=== PATIENT | female | born 1930 | race Caucasian/White ===

== ENCOUNTER → 2018-04-15 | Outpatient (CLI) | payer MEDICARE, OTHER ==
[2018-04-15 10:28] LABS: CREATININE 1.7 mg/dL (0.6-1.0); GFR 28.5; POTASSIUM 3.5 mmol/L (3.5-5.1)
== END | disposition home or self-care (01) ==
LOC: LAB 09:14
PROVIDERS: ATTEND Internal Medicine Cardiovascular Disease
DX: I48.2 Chronic atrial fibrillation (principal); I10 Essential (primary) hypertension
CPT/HCPCS: 36415; 80048; 80061

== ENCOUNTER 2019-01-18 10:29 | Inpatient (IN) | payer MEDICARE, OTHER ==
[~2019-01-18] VITALS: Ht 165.1 cm; Wt 93.6 kg
--- NOTE | 2019-01-18 10:53 | PHYS DOC ---
Past History Past Medical History: A-Fib, Hypertension Past Surgical History: Appendectomy, Cholecystectomy, Hysterectomy, Knee Replacement, Tonsillectomy Smoking: Non-smoker Alcohol Use: Rarely Drug Use: None Adult General Chief Complaint Chief Complaint: DIZZY/LIGHT HEADED HPI HPI Patient is a 88 year old female brought in by EMS because of dizziness. Patient states she was in the bathroom try to urinate and had 1 episodes of dizziness for a few seconds without chest pain, shortness of breath, palpitation. Patient states she was not able to get out of the stool. Patient's son called her as routine daily called to check on her and she did not answer and found her on the stool and called 911 and they moved the patient with the help from firefighters. Patient denies any problem in ER. Patient's son reported that she had a few episodes of dizziness for the last 1 week and her primary care physician adjusted her medication. Patient has history of atrial flutter patient and currently taking Coumadin and the states she drinks plenty of water because she takes Triamterene/ Hydrochlorothiazide. Review of Systems Review of Systems Constitutional: Denies fever or chills [] Eyes: Denies change in visual acuity, redness, or eye pain [] HENT: Denies nasal congestion or sore throat [] Respiratory: Denies cough or shortness of breath [] Cardiovascular: No additional information not addressed in HPI [] GI: Denies abdominal pain, nausea, vomiting, bloody stools or diarrhea [] : Denies dysuria or hematuria [] Musculoskeletal: Denies back pain or joint pain [] Integument: Denies rash or skin lesions [] Neurologic: Denies headache, focal weakness or sensory changes reports dizziness [] Endocrine: Denies polyuria or polydipsia [] All other systems were reviewed and found to be within normal limits, except as documented in this note. Allergies Allergies Allergies Coded Allergies Type Severity Reaction Last Updated Verified No Known Drug Allergies 01/18/19 No Physical Exam Physical Exam Constitutional: Well developed, well nourished, mild distress, non-toxic appearance. [] HENT: Normocephalic, atraumatic, bilateral external ears normal, oropharynx moist, no oral exudates, nose normal. [] Eyes: PERRLA, EOMI, conjunctiva normal, no discharge. [] Neck: Normal range of motion, no tenderness, supple, no stridor. [] Cardiovascular: Irregularly irregular rhythm, no murmur [] Lungs & Thorax: Bilateral breath sounds clear to auscultation [] Abdomen: Bowel sounds normal, soft, no tenderness, no masses, no pulsatile masses. [] Skin: Warm, dry, no erythema, no rash. [] Back: No tenderness, no CVA tenderness. [] Extremities: No tenderness, no cyanosis, no clubbing, ROM intact, no edema. [] Neurologic: Alert and oriented X 3, normal motor function, normal sensory function, no focal deficits noted. [] Psychologic: Affect normal, judgement normal, mood normal. [] Current Patient Data Vital Signs Vital Signs Date Time Temp Pulse Resp B/P (MAP) Pulse Ox O2 Delivery O2 Flow Rate FiO2 01/18/19 10:29 97.6 EKG EKG EKG interpreted by me. EKG at 1043 showed atrial flutter patient at rate of 90, PVCs, low voltage QRS, no acute ST and T-wave abnormalities. Radiology/Procedures Radiology/[place] [address] IMAGING REPORT Signed PATIENT: MARK ABDULLAHI ACCOUNT: [id number] : 1930 LOCATION: ER AGE: 88 SEX: F EXAM STATUS: REG ER ORD. PHYSICIAN: SARAN DOTSON MD REASON: dizziness PROCEDURE: PORTABLE CHEST 1V AP chest. HISTORY: Dizziness, weakness AP view was taken of the chest. Patient's taken a poor inspiration. Heart is within normal limits in size. There is atherosclerotic change in the aortic arch. There are no confluent infiltrates. IMPRESSION: 1. Poor inspiration. 2. No acute infiltrates. Electronically signed by: Shamar Rubio MD (01/18/2019 11:37 AM) [facility] DICTATED AND SIGNED BY: SHAMAR RUBIO MD DATE: 01/18/19 1137 CC: MARTINEZ MONTOAY MD; SARAN DOTSON MD ~ [address] [address] IMAGING REPORT Signed PATIENT: MARK ABDULLAHI ACCOUNT: [id number] : 1930 LOCATION: ER AGE: 88 SEX: F EXAM STATUS: REG ER ORD. PHYSICIAN: SARAN DOTSON MD REASON: dizziness PROCEDURE: CT HEAD WO CONTRAST CT brain without contrast. HISTORY: Dizziness CT scan of brain was done without contrast. There is diffuse atrophy. There is no intracranial hemorrhage or subdural hematoma. An acute CVA is not identified. There is decreased density in the periventricular white matter likely chronic microvascular changes. There is no mass or shift of the midline. Sinuses are clear. IMPRESSION: 1. Atrophy and chronic microvascular changes. 2. No intracranial hemorrhage or acute finding. [facility] Compliance Statement: One or more of the following individualized dose reduction techniques were utilized for this examination: 1. Automated exposure control 2. Adjustment of the mA and/or kV according to patient size 3. Use of iterative reconstruction technique Electronically signed by: Shamar Rubio MD (01/18/2019 11:39 AM) [facility] DICTATED AND SIGNED BY: SHAMAR RUBIO MD DATE: 01/18/19 1139 CC: MARTINEZ MONTOYA MD; SARAN DOTSON MD ~ Course & Med Decision Making Course & Med Decision Making Pertinent Labs and Imaging studies reviewed. (See chart for details) Evaluation of patient in ER showed 88-year-old female patient brought in by EMS because of dizziness and generalized weakness. Patient had NIH scale of 0 with a stable vital signs and temperature of 99.2 to arrival to ER. Patient had multiple electrolyte problems with chronic renal failure and CHF and elevation of CK without history of recent falls. Patient had elevation of lactic acid and more than 40 WBC in urine. Patient had 500 mL of normal saline and Rocephin and felt better. Dr. Montoya accepted admission at 1207. Patient and her family informed about the test results and plan of care. Dragon Disclaimer Dragon Disclaimer This electronic medical record was generated, in whole or in part, using a voice recognition dictation system. Departure Departure: Impression: Primary Impression: Sepsis Additional Impressions: Rhabdomyolysis Acute exacerbation of CHF (congestive heart failure) Chronic renal insufficiency Hypomagnesemia Hyponatremia Dizziness Elevated liver enzymes Hypochloremia Atrial fibrillation Urinary tract infection Disposition: ADMITTED INPATIENT (at 1208) Admitting Physician: Martinez Montoya (accepted admission at 1207) Condition: IMPROVED Referrals: MARTINEZ MONTOYA MD (PCP) NIHSS - ED NIH Stroke Scale: NIH Stroke Scale Response (Comments) Value Level of Consciousness: 0 Alert/Responsive 0 LOC Commands: 0 Performs both tasks 0 Best Gaze: 0 Normal 0 Facial Palsy: 0 Normal, symmetrical 0 Motor - Left Arm 0 No drift 0 Motor - Right Arm 0 No drift 0 Motor - Left Leg 0 No drift 0 Motor: Right Leg 0 No drift 0 Limb Ataxia: 0 Absent 0 Sensory: 0 No loss 0 Best Language: 0 Normal 0 Dysathria: 0 Normal 0 Extinction and Inattention: 0 Normal 0 Total 0 Critical Care Time Critical care time was 65 minutes exclusive of procedures. Problem Qualifiers Primary Impression: Sepsis Sepsis type: sepsis due to unspecified organism Qualified Codes: A41.9 - Sepsis, unspecified organism Additional Impressions: Rhabdomyolysis Rhabdomyolysis type: non-traumatic Qualified Codes: M62.82 - Rhabdomyolysis Acute exacerbation of CHF (congestive heart failure) Heart failure type: unspecified Qualified Codes: I50.9 - Heart failure, unspecified Chronic renal insufficiency Chronic kidney disease stage: unspecified stage Qualified Codes: N18.9 - Chronic kidney disease, unspecified Atrial fibrillation Atrial fibrillation type: chronic Qualified Codes: I48.2 - Chronic atrial fibrillation Urinary tract infection Urinary tract infection type: site unspecified Hematuria presence: without hematuria Qualified Codes: N39.0 - Urinary tract infection, site not specified SARAN DOTSON MD Jan 18, 2019 10:52
[2019-01-18 11:11] LABS: BASO % 0 % (0-3); EOS % 0 % (0-3); HEMATOCRIT 46.3 % (36.0-47.0); HEMOGLOBIN 15.5 g/dL (12.0-15.5); LYMPH # 0.6 x10^3/uL (1.0-4.8); LYMPH % 5 % (24-48); MEAN CORPUSCULAR HEMOGLOBIN 28 pg (25-35); MEAN CORPUSCULAR HGB CONC 34 g/dL (31-37); MEAN CORPUSCULAR VOLUME 84 fL (79-100); MONO # 0.3 x10^3/uL (0.0-1.1); MONO % 3 % (0-9); NEUT # 10.9 x10^3uL (1.8-7.7); NEUT % 92 % (31-73); PLATELET COUNT 251 x10^3/uL (140-400); RED BLOOD COUNT 5.52 x10^6/uL (3.50-5.40); RED CELL DISTRIBUTION WIDTH 15.9 % (11.5-14.5); WHITE BLOOD COUNT 11.9 x10^3/uL (4.0-11.0)
[2019-01-18] MEDS ORDERED: ATOR20TA58 PO (11:22)
[2019-01-18] MEDS ORDERED: GABA600T7 PO (11:22)
[2019-01-18] MEDS ORDERED: WARF1TAB69 PO (11:22)
[2019-01-18] MEDS ORDERED: LOSA100T2 PO (11:22)
[2019-01-18] MEDS ORDERED: TRIA1TAB3 PO (11:22)
[2019-01-18] MEDS ORDERED: METO-239 PO (11:22)
[2019-01-18] MEDS ORDERED: WARF4TAB64 PO (11:22)
[2019-01-18] MEDS ORDERED: OMEP20CA9 PO (11:22)
[2019-01-18] MEDS ORDERED: [UNRECOGNIZED DRUG - REMARK] (11:22)
[2019-01-18] MEDS ORDERED: POTA10TA10 PO (11:22)
[2019-01-18 11:38] LABS: ALBUMIN 3.7 g/dL (3.4-5.0); ALBUMIN/GLOBULIN RATIO 0.8 (1.0-1.7); CALCIUM 9.9 mg/dL (8.5-10.1); CREATININE 2.4 mg/dL (0.6-1.0); GFR 19.1; MAGNESIUM 1.3 mg/dL (1.8-2.4); POTASSIUM 3.9 mmol/L (3.5-5.1); TOTAL BILIRUBIN 1.3 mg/dL (0.2-1.0); TOTAL PROTEIN 8.5 g/dL (6.4-8.2)
--- NOTE | 2019-01-18 11:40 | RAD ---
AP chest. HISTORY: Dizziness, weakness AP view was taken of the chest. Patient's taken a poor inspiration. Heart is within normal limits in size. There is atherosclerotic change in the aortic arch. There are no confluent infiltrates. IMPRESSION: 1. Poor inspiration. 2. No acute infiltrates. Electronically signed by: Shamar Rubio MD (01/18/2019 11:37 AM) [facility]
--- NOTE | 2019-01-18 11:41 | RAD ---
CT brain without contrast. HISTORY: Dizziness CT scan of brain was done without contrast. There is diffuse atrophy. There is no intracranial hemorrhage or subdural hematoma. An acute CVA is not identified. There is decreased density in the periventricular white matter likely chronic microvascular changes. There is no mass or shift of the midline. Sinuses are clear. IMPRESSION: 1. Atrophy and chronic microvascular changes. 2. No intracranial hemorrhage or acute finding. [facility] Compliance Statement: One or more of the following individualized dose reduction techniques were utilized for this examination: 1. Automated exposure control 2. Adjustment of the mA and/or kV according to patient size 3. Use of iterative reconstruction technique Electronically signed by: Shamar Rubio MD (01/18/2019 11:39 AM) [facility]
[2019-01-18] MEDS ORDERED: MAGNESIUM SULFATE 2GM 50 ML IV ONE (12:00)
[2019-01-18] MEDS ORDERED: IV NORMAL SALINE 500ML 500 ML IV ONE (12:00)
[2019-01-18 12:41] LABS: BILIRUBIN,URINE NEG (NEG); CLARITY,URINE CLOUDY; COLOR,URINE YELLOW; GLUCOSE,URINE NEG (NEG); NITRITE,URINE NEG (NEG); UROBILINOGEN,URINE 0.2 mg/dL (0.2 mg/dL)
[2019-01-18 12:43] LABS: BACTERIA,URINE MANY /HPF (0-FEW); SQUAMOUS EPITHELIAL CELL,UR FEW /LPF; WBC,URINE >40 /HPF (0-4)
[2019-01-18] MEDS ORDERED: cefTRIAXone SODIUM 1 GM VIAL ONE (12:50)
[2019-01-18] MEDS ORDERED: IV NORMAL SALINE 50ML 50 ML ONE (12:50)
[2019-01-18 14:28] VITALS: BP 137/78
[2019-01-18] MEDS ORDERED: TRIA1CAP3 PO (15:03)
[2019-01-18] MEDS ORDERED: PIP/TAZO PER PHARMACY MC PRN (15:30)
[2019-01-18] MEDS ORDERED: IV NORMAL SALINE 1,000ML 1,000 ML IV ONE (15:30)
[2019-01-18] MEDS ORDERED: VANCOMYCIN PER PHARMACY MC PRN (15:30)
[2019-01-18] MEDS ORDERED: IV NORMAL SALINE 1,000ML 1,000 ML IV SCH (17:00)
[2019-01-18] MEDS ORDERED: VANCOMYCIN 2 GM in IV NORMAL SALINE 500ML 500 ML IV ONE (17:30)
[2019-01-18] MEDS: PIPERACILLIN/TAZOBACTAM 2.25 GM in IV NORMAL SALINE 50ML 50 ML IV SCH (18:05)
[2019-01-18 19:07] VITALS: BP 103/63
[2019-01-18] MEDS: POTASSIUM CHLORIDE 10 MEQ TABLET.ER. PO SCH (21:19)
[2019-01-18] MEDS: ATORVASTATIN CALCIUM 20 MG TABLET PO SCH (21:19)
[2019-01-18] MEDS: GABAPENTIN 300 MG CAPSULE. PO SCH (21:20)
--- NOTE | 2019-01-18 21:39 | EKG ---
[address] [address] Test Date: 2019-01-18 Test Time: 10:43:25 Pat Name: MARK ABDULLAHI Department: Room: 115 A Gender: F Health Claims Examiner: : 1930 Requested By: SARAN DOTSON Order Number: [id number] Reading MD: Tenzin Rice MD Measurements Intervals Patterson Rate: 90 P: NE: QRS: 33 QRSD: 78 T: 1 QT: 372 QTc: 459 Interpretive Statements ATRIAL FIBRILLATION WITH CONTROLLED VENTRICULAR RESPONSE NON-SPECIFIC ST/T CHANGES PVC Electronically Signed On 01-27-2019 22:21:43 CDT by Tenzin Rice MD
[2019-01-18 22:59] VITALS: BP 114/69
[2019-01-19 05:19] VITALS: BP 98/65
[2019-01-19] MEDS: PIPERACILLIN/TAZOBACTAM 2.25 GM in IV NORMAL SALINE 50ML 50 ML IV SCH ×5 (06:19→17:33)
[2019-01-19 08:25] LABS: BASO % 0 % (0-3); EOS % 0 % (0-3); HEMATOCRIT 40.7 % (36.0-47.0); HEMOGLOBIN 13.7 g/dL (12.0-15.5); LYMPH # 1.2 x10^3/uL (1.0-4.8); LYMPH % 13 % (24-48); MEAN CORPUSCULAR HEMOGLOBIN 29 pg (25-35); MEAN CORPUSCULAR HGB CONC 34 g/dL (31-37); MEAN CORPUSCULAR VOLUME 85 fL (79-100); MONO # 0.5 x10^3/uL (0.0-1.1); MONO % 6 % (0-9); NEUT # 7.4 x10^3uL (1.8-7.7); NEUT % 81 % (31-73); PLATELET COUNT 191 x10^3/uL (140-400); RED BLOOD COUNT 4.81 x10^6/uL (3.50-5.40); RED CELL DISTRIBUTION WIDTH 15.8 % (11.5-14.5); WHITE BLOOD COUNT 9.2 x10^3/uL (4.0-11.0)
[2019-01-19 08:35] LABS: CALCIUM 9.1 mg/dL (8.5-10.1); GFR 23.6; POTASSIUM 3.7 mmol/L (3.5-5.1)
[2019-01-19] MEDS ORDERED: NON FORMULARY ITEM (Warfarin Sodium 4 MG) PO SCH (09:00)
[2019-01-19] MEDS ORDERED: LOSARTAN 50 MG TABLET. PO SCH (09:00)
[2019-01-19] MEDS ORDERED: WARFARIN SODIUM 1 MG PO SCH (09:00)
[2019-01-19] MEDS ORDERED: TRIAMTERENE/HCTZ 37.5/25MG TABLET. PO SCH (09:00)
[2019-01-19] MEDS: POTASSIUM CHLORIDE 10 MEQ TABLET.ER. PO SCH ×2 (10:17→20:18)
[2019-01-19] MEDS: PANTOPRAZOLE 40 MG TABLET. PO SCH (10:17)
[2019-01-19] MEDS: METOPROLOL SUCC 24HR ER 25 MG TAB.ER.24H. PO SCH (10:18)
[2019-01-19 10:32] VITALS: BP 140/73
--- NOTE | 2019-01-19 11:20 | RAD ---
CT of the lumbar spine without contrast, 01/19/2019: HISTORY: Left leg numbness Noncontrast scans were obtained with multiplanar reconstructions produced. There are bilateral pedicle screws at L4 and L5 attached to longitudinally oriented posterior fixation rods. A partially radiopaque disc spacer is present at that level. Artifacts arising from these fixation devices degrade image quality at this level. There has been a partial laminectomy on the right. There is a moderate grade 1 anterolisthesis at L4-5. There appears to be mild underlying central spinal stenosis. There is a bony density compatible with a large spur or bone fragment encroaching upon the right neural foramen at L4-5. There is only mild narrowing of the left neural foramen at this level. There is moderate superior endplate deformity at T12, of indeterminate age. There is minimal posterior disc bulging at T12-L1. The central spinal canal and neural foramina are well-maintained. At L1-2, there is a small posterior disc protrusion centered to the left of midline. There is mild posterior ligamentous thickening due to facet joint arthropathy. The combination of findings is causing mild central spinal stenosis. At L2-3 there is moderate broad-based posterior disc bulging. There is mild posterior ligamentous thickening. The combination of findings is causing mild central spinal stenosis in a triangle configuration. There is moderate inferior foraminal narrowing bilaterally. At L3-4 there is a vacuum disc phenomena. Artifacts arising from the lower lumbar surgical implants degrade image quality at this level. The posterior disc margin is not clearly seen. The combination of disc bulging and posterior ligamentous thickening related to facet joint arthropathy appears to be causing moderate central spinal stenosis. There is mild bilateral foraminal narrowing. At L5-S1 there is mild posterior disc bulging. The central spinal canal and neural foramina are well-maintained. There are moderate degenerative changes involving the facet joints bilaterally at this level. Incidental note is made of right renal atrophy. There is a moderate size right renal cyst. There is mild left renal scarring. There is extensive calcific plaquing of the abdominal aorta and its branches. Sigmoid diverticulosis is noted. IMPRESSION: 1. Previous posterior spinal fusion, instrumentation and right partial laminectomy at L4-5. 2. Chronic appearing grade 1 anterolisthesis at L4-5 with mild central spinal stenosis at that level. 3. Moderate multilevel degenerative changes at the other levels as described above. 4. Moderate central spinal stenosis at L3-4. 5. Small posterior disc protrusion at L1-2 just to the left of midline. [facility] Compliance Statement: One or more of the following individualized dose reduction techniques were utilized for this examination: 1. Automated exposure control 2. Adjustment of the mA and/or kV according to patient size 3. Use of iterative reconstruction technique Electronically signed by: Milton Barragan MD (01/19/2019 11:17 AM) [facility]
[2019-01-19] MEDS ORDERED: traMADol 50 MG TABLET PO PRN (11:45)
[2019-01-19] MEDS: traMADol 50 MG TABLET PO PRN ×2 (11:59→20:46)
[2019-01-19 14:37] VITALS: BP 121/76
[2019-01-19 14:42] VITALS: BP 141/75
[2019-01-19] MEDS ORDERED: WARFARIN 5 MG TABLET. PO ONE (16:00)
[2019-01-19 19:48] VITALS: BP 110/61
[2019-01-19] MEDS: LACTOBACILLUS RHAMNOSUS GG 1 CAPSULE. PO SCH (20:18)
[2019-01-19] MEDS: ATORVASTATIN CALCIUM 20 MG TABLET PO SCH (20:18)
[2019-01-19] MEDS: GABAPENTIN 300 MG CAPSULE. PO SCH (20:18)
[2019-01-19 22:48] VITALS: BP 117/76
[2019-01-20] MEDS: PIPERACILLIN/TAZOBACTAM 2.25 GM in IV NORMAL SALINE 50ML 50 ML IV SCH ×4 (01:08→18:07)
--- NOTE | 2019-01-20 01:56 | PN ---
DATE: 01/19/2019 SUBJECTIVE: The patient in with sepsis, hypotension and syncope. The patient is resting fairly comfortably, making fairly good progress overall. The patient is markedly improved with her IV antibiotic therapy. The patient; otherwise, seems to be resting fairly comfortably. Lactate has been coming down. Her protime is still low and we are still trying to get that up with at least 5 mg of Coumadin, greater than 40 white blood cells per high powered field. Continue on IV antibiotic therapy. OBJECTIVE: GENERAL: Otherwise, the patient is alert and oriented. LUNGS: Diminished throughout, poor movement of air, but clear. CARDIOVASCULAR: Irregularly irregular. ABDOMEN: Soft, nontender. EXTREMITIES: No clubbing, cyanosis, nor edema. NEUROLOGIC: Intact. IMPRESSION: Therefore of sepsis, syncope, lightheadedness. MARTINEZ MONTOYA MD DR: LILI/kimberly JOB#: [id number] / [id number]
[2019-01-20 05:29] VITALS: BP 129/80
[2019-01-20 07:26] LABS: BASO % 0 % (0-3); EOS # 0.1 x10^3/uL (0.0-0.7); EOS % 2 % (0-3); HEMATOCRIT 35.5 % (36.0-47.0); HEMOGLOBIN 11.8 g/dL (12.0-15.5); LYMPH # 1.2 x10^3/uL (1.0-4.8); LYMPH % 18 % (24-48); MEAN CORPUSCULAR HEMOGLOBIN 28 pg (25-35); MEAN CORPUSCULAR HGB CONC 33 g/dL (31-37); MEAN CORPUSCULAR VOLUME 85 fL (79-100); MONO # 0.5 x10^3/uL (0.0-1.1); MONO % 8 % (0-9); NEUT # 4.5 x10^3uL (1.8-7.7); NEUT % 72 % (31-73); PLATELET COUNT 180 x10^3/uL (140-400); RED CELL DISTRIBUTION WIDTH 15.9 % (11.5-14.5); WHITE BLOOD COUNT 6.3 x10^3/uL (4.0-11.0)
[2019-01-20 07:29] LABS: CALCIUM 8.8 mg/dL (8.5-10.1); CREATININE 1.8 mg/dL (0.6-1.0); GFR 26.6; POTASSIUM 3.7 mmol/L (3.5-5.1)
[2019-01-20] MEDS: LOSARTAN 25 MG TABLET. PO SCH (09:00)
[2019-01-20] MEDS: FUROSEMIDE 40 MG/4 ML VIAL IVP SCH (09:00)
[2019-01-20] MEDS: MAGNESIUM CHLORIDE ER 64 MG TABLET.ER PO SCH (10:00)
[2019-01-20] MEDS: LACTOBACILLUS RHAMNOSUS GG 1 CAPSULE. PO SCH ×2 (10:23→20:23)
[2019-01-20] MEDS: POTASSIUM CHLORIDE 10 MEQ TABLET.ER. PO SCH ×2 (10:27→20:23)
[2019-01-20] MEDS: PANTOPRAZOLE 40 MG TABLET. PO SCH (10:27)
[2019-01-20] MEDS: METOPROLOL SUCC 24HR ER 25 MG TAB.ER.24H. PO SCH (10:28)
[2019-01-20 10:30] VITALS: BP 96/64
[2019-01-20 14:46] VITALS: BP 112/72
--- NOTE | 2019-01-20 14:52 | PDOC2 ---
[facility] REGISTERED NURSE 01/20/19 1452: CONSULT Date of Admission DATE: 01/20/19 TIME: 14:37 Reason for Consult: chf Problem List Problems Medical Problems: (1) Acute exacerbation of CHF (congestive heart failure) Status: Acute (2) Atrial fibrillation Status: Acute (3) Chronic renal insufficiency Status: Acute (4) Dizziness Status: Acute (5) Elevated liver enzymes Status: Acute (6) Hypochloremia Status: Acute (7) Hypomagnesemia Status: Acute (8) Hyponatremia Status: Acute (9) Rhabdomyolysis Status: Acute (10) Sepsis Status: Acute (11) Urinary tract infection Status: Acute History of Present Illness Ms Kaufman is an 88 year old female who presented to the ED after having symptoms of lightheadedness and weakness. She reports that she was in her normal state of health. She had ambulated to the bathroom when she had a brief episode of lightheadedness followed by being unable to stand up due to weakness in her legs. She believes she sat for approximately 30 minutes before she was found by her son who called EMS. She denies any prior episodes similar. She denies chest discomfort. She reports baseline dyspnea on exertion if she hurries but denies edema, orthopnea or PND. She denies syncope or presyncope. She denies palpitations. She does have a history of atrial fibrillation for which she follows with Dr Tao. She denies any use of water pills. Her son did report to the ED that she had been having lightheadedness off an on while her medications were recently adjusted and the patient did report to the ED that she drinks plenty of water due to use of triamterene/HCTZ. She denies any prior history of heart failure. She is unsure of when her last echo was. She was found to have elevated WBCs and lactic acid levels, UTI, as well as elevated BNP and Cr. She was admitted for antibiotics and started on fluids per sepsis protocol. Consult was called for heart failure. today she reports doing much better and wanting to go home instead of a rehab facility. Cardiovascular: AFIB, CHF, HTN, Other GI: GERD Psych: Other (dementia) Renal/: Chronic renal insuff, UTI Past Surgical History: Appendectomy, Cholecystectomy, Total knee replacement, Hysterectomy Family History non contributory due to age Social History non smoker, lives in her own home, no significant ETOH, no illicit drugs. Current Medications Current Medications Ceftriaxone Sodium 1 gm/ Sodium Chloride 50 ml @ 100 mls/hr 1X ONCE IV Last administered on 01/18/19at 12:52; Start 01/18/19 at 12:00; Stop 01/18/19 at 12:29 ; Status DC Sodium Chloride 500 ml @ 0 mls/hr 1X ONCE IV Last administered on 01/18/19at 12 :54; Start 01/18/19 at 12:00; Stop 01/18/19 at 12:01; Status DC Magnesium Sulfate 50 ml @ 25 mls/hr 1X ONCE IV Last administered on 01/18/19at 13:51; Start 01/18/19 at 12:00; Stop 01/18/19 at 14:00; Status DC Sodium Chloride 50 ml @ As Directed STK-MED ONCE .ROUTE ; Start 01/18/19 at 12: 50; Stop 01/18/19 at 12:51; Status DC Ceftriaxone Sodium (Rocephin) 1 gm STK-MED ONCE .ROUTE ; Start 01/18/19 at 12:50 ; Stop 01/18/19 at 12:51; Status DC Sodium Chloride 1,000 ml @ 1,000 mls/hr 1X ONCE IV ; Start 01/18/19 at 15:30; Stop 01/18/19 at 15:43; Status DC Atorvastatin Calcium (Lipitor) 20 mg QHS PO Last administered on 01/19/19at 20: 18; Start 01/18/19 at 21:00 Metoprolol Succinate (Toprol Xl) 25 mg DAILY PO Last administered on 01/20/19at 10:28; Start 01/19/19 at 09:00 Gabapentin (Neurontin) 600 mg QHS PO Last administered on 01/19/19at 20:18; Start 01/18/19 at 21:00 Losartan Potassium (Cozaar) 100 mg DAILY PO ; Start 01/19/19 at 09:00; Stop 09/29 at 09:40; Status DC Pantoprazole Sodium (Protonix) 40 mg DAILYAC PO Last administered on 01/20/19at 10:27; Start 01/19/19 at 07:30 Potassium Chloride (Klor-Con) 10 meq BID PO Last administered on 01/20/19at 10: 27; Start 01/18/19 at 21:00 Triamterene/HCTZ (Maxzide 37.5/ 25mg) 1 tab DAILY PO Last administered on at 10:17; Start 01/19/19 at 09:00; Stop 01/20/19 at 07:24; Status DC Non-Formulary Medication (Warfarin Sodium ) 1 mg DAILY PO ; Start 01/19/19 at 09 :00; Stop 01/19/19 at 13:15; Status DC Non-Formulary Medication (Warfarin Sodium ) 4 mg DAILY PO ; Start 01/19/19 at 09 :00; Stop 01/19/19 at 13:16; Status DC Piperacillin Sod/ Tazobactam Sod (Zosyn Per Pharmacy) 1 each PRN DAILY PRN MC SEE COMMENTS; Start 01/18/19 at 15:30 Vancomycin HCl (Vanco Per Pharmacy) 1 each PRN DAILY PRN MC SEE COMMENTS Last administered on 01/18/19at 18:19; Start 01/18/19 at 15:30 Sodium Chloride 1,000 ml @ 75 mls/hr [id number] IV Last administered on at 17:00; Start 01/18/19 at 17:00; Stop 01/19/19 at 09:22; Status DC Piperacillin Sod/ Tazobactam Sod 2.25 gm/Sodium Chloride 50 ml @ 100 mls/hr Q6HRS IV Last administered on 01/20/19at 12:18; Start 01/18/19 at 18:00 Vancomycin HCl 2 gm/Sodium Chloride 500 ml @ 250 mls/hr 1X ONCE IV Last administered on 01/18/19at 18:04; Start 01/18/19 at 17:30; Stop 01/18/19 at 19:29 ; Status DC Vancomycin HCl 1.5 gm/Sodium Chloride 500 ml @ 250 mls/hr Q48H IV ; Start 01/20 at 18:00 Vancomycin HCl (Vancomycin Trough Level) 1 each 1X ONCE MC ; Start 01/22/19 at 17:30; Stop 01/22/19 at 17:31 Losartan Potassium (Cozaar) 25 mg DAILY PO ; Start 01/20/19 at 09:00 Lactobacillus Rhamnosus (Culturelle) 1 cap BID PO Last administered on at 10:23; Start 01/19/19 at 21:00 Tramadol HCl (Ultram) 50 mg PRN Q6HRS PRN PO PAIN Last administered on at 20:46; Start 01/19/19 at 11:45 Tramadol HCl (Ultram) 100 mg PRN Q6HRS PRN PO PAIN; Start 01/19/19 at 11:45 Warfarin Sodium (Coumadin) 5 mg 1X WARF ONCE PO Last administered on at 17:33; Start 01/19/19 at 16:00; Stop 01/19/19 at 16:01; Status DC Warfarin Sodium (Coumadin Per Pharmacy) 1 each PRN DAILY PRN MC SEE COMMENTS Last administered on 01/19/19at 15:10; Start 01/19/19 at 13:45 Furosemide (Lasix) 40 mg DAILY IVP ; Start 01/20/19 at 09:00 Magnesium Chloride (Mag Delay) 64 mg DAILY PO ; Start 01/20/19 at 10:00 Active Scripts Active Reported Triamterene-Hctz 37.5-25 Mg Cp (Triamterene/Hydrochlorothiazid) 1 Each Capsule 1 Cap PO DAILY [Quinine "Leg Cramps"] 1 Atorvastatin Calcium 20 Mg Tablet 20 Mg PO HS Cozaar (Losartan Potassium) 100 Mg Tablet 100 Mg PO DAILY Potassium Chloride 10 Meq Tablet.er 10 Meq PO BID Warfarin Sodium 1 Mg Tablet 1 Mg PO DAILY Omeprazole 20 Mg Capsule.dr 20 Mg PO . PRN Warfarin Sodium 4 Mg Tablet 4 Mg PO DAILY Metoprolol Succinate ( Xl ) (Metoprolol Succinate) 25 Mg Tab.er.24h 25 Mg PO DAILY Gabapentin 600 Mg Tablet 600 Mg PO HS Allergies: Coded Allergies: No Known Drug Allergies (Unverified , 01/18/19) Review of System as per HPI General: Alert, Oriented X3, Cooperative, No acute distress HEENT: Atraumatic, EOMI Lungs: Clear to auscultation, Normal air movement Heart: Normal S1, Normal S2, Other (no gallops, clicks or rubs) Abdomen: Normal bowel sounds, Soft, No tenderness Extremities: No cyanosis, Normal pulses, Other (trace edema) Neuro: Normal speech Psych/Mental Status: Mental status NL, Mood NL VITALS Vital Signs Date Time Temp Pulse Resp B/P (MAP) Pulse Ox O2 Delivery O2 Flow Rate FiO2 01/20/19 10:30 68 96/64 (75) 99 Room Air 01/20/19 05:29 98.0 20 Labs Laboratory Tests Test 01/18/19 15:44 01/19/19 08:19 01/19/19 13:10 01/20/19 06:33 Lactic Acid Level 2.3 mmol/L (0.4-2.0) White Blood Count 9.2 x10^3/uL (4.0-11.0) 6.3 x10^3/uL (4.0-11.0) Red Blood Count 4.81 x10^6/uL (3.50-5.40) 4.20 x10^6/uL (3.50-5.40) Hemoglobin 13.7 g/dL (12.0-15.5) 11.8 g/dL (12.0-15.5) Hematocrit 40.7 % (36.0-47.0) 35.5 % (36.0-47.0) Mean Corpuscular Volume 85 fL (79-100) 85 fL (79-100) Mean Corpuscular Hemoglobin 29 pg (25-35) 28 pg (25-35) Mean Corpuscular Hemoglobin Concent 34 g/dL (31-37) 33 g/dL (31-37) Red Cell Distribution Width 15.8 % (11.5-14.5) 15.9 % (11.5-14.5) Platelet Count 191 x10^3/uL (140-400) 180 x10^3/uL (140-400) Neutrophils (%) (Auto) 81 % (31-73) 72 % (31-73) Lymphocytes (%) (Auto) 13 % (24-48) 18 % (24-48) Monocytes (%) (Auto) 6 % (0-9) 8 % (0-9) Eosinophils (%) (Auto) 0 % (0-3) 2 % (0-3) Basophils (%) (Auto) 0 % (0-3) 0 % (0-3) Neutrophils # (Auto) 7.4 x10^3uL (1.8-7.7) 4.5 x10^3uL (1.8-7.7) Lymphocytes # (Auto) 1.2 x10^3/uL (1.0-4.8) 1.2 x10^3/uL (1.0-4.8) Monocytes # (Auto) 0.5 x10^3/uL (0.0-1.1) 0.5 x10^3/uL (0.0-1.1) Eosinophils # (Auto) 0.0 x10^3/uL (0.0-0.7) 0.1 x10^3/uL (0.0-0.7) Basophils # (Auto) 0.0 x10^3/uL (0.0-0.2) 0.0 x10^3/uL (0.0-0.2) Sodium Level 131 mmol/L (136-145) 130 mmol/L (136-145) Potassium Level 3.7 mmol/L (3.5-5.1) 3.7 mmol/L (3.5-5.1) Chloride Level 96 mmol/L (98-107) 96 mmol/L (98-107) Carbon Dioxide Level 22 mmol/L (21-32) 23 mmol/L (21-32) Anion Gap 13 (6-14) 11 (6-14) Blood Urea Nitrogen 29 mg/dL (7-20) 24 mg/dL (7-20) Creatinine 2.0 mg/dL (0.6-1.0) 1.8 mg/dL (0.6-1.0) Estimated GFR (Cockcroft-Gault) 23.6 26.6 Glucose Level 98 mg/dL (70-99) 93 mg/dL (70-99) Calcium Level 9.1 mg/dL (8.5-10.1) 8.8 mg/dL (8.5-10.1) Prothrombin Time 12.6 SEC (9.4-11.4) 13.2 SEC (9.4-11.4) Prothromb Time International Ratio 1.3 (0.9-1.1) 1.3 (0.9-1.1) Images CXR - IMPRESSION: 1. Poor inspiration. 2. No acute infiltrates. Assessment/Plan 1. elevated BNP in the setting of acute on chronic renal failure and sepsis - no overt clinical signs of volume overload at this time despite IVF. Check echocardiogram for LV function. 2. atrial fibrillation - on warfarin for stroke prophylaxis 3. sepsis - per PCP 4. acute on chronic renal failure - cr improved with IVF. Monitor. MERARY ADAMSON MD 01/20/19 1903: CONSULT Assessment/Plan Patient seen and examined. Agree with above nurse practitioner note. Wonderfully pleasant 88-year-old woman coming into the hospital because she had an episode where she couldn't get up off of her bathroom commode. She currently denies any chest pain, dyspnea, orthopnea or PND. No obvious signs of significant heart failure by examination. Supportive care for now. CK D appears to be improved. We will await the echocardiogram to rule out any occult cardio myopathy. UMA TREVIÑO APRN Jan 20, 2019 14:52 MERARY ADAMSON MD Jan 20, 2019 19:03
[2019-01-20] MEDS ORDERED: WARFARIN 5 MG TABLET. PO ONE (16:00)
[2019-01-20] MEDS ORDERED: VANCOMYCIN 1.5 GM in IV NORMAL SALINE 500ML 500 ML IV SCH (18:00)
--- NOTE | 2019-01-20 18:49 | PN ---
DATE: SUBJECTIVE: The patient in with sepsis. She is resting fairly comfortably, making fairly good progress and also had severe pain down her left leg. The patient's imaging CT lumbar demonstrated severe problems of the back with multiple levels of degenerative changes and spinal stenosis, disk protrusions, which may be causing her weakness and her pain down in the leg itself. Otherwise, the patient still is feeling weak, although she does not wear her CPAP machine at night. She does have sleep apnea, but she is not using that refuses to use it uncomfortable mask. Kidney function is improved. Lactic acid coming down. Protime still needs to be adjusted by pharmacy. Urine culture is still pending. PHYSICAL EXAMINATION: VITAL SIGNS: Otherwise, the patient's blood pressure 130/80, respiratory rate 20, pulse 90, afebrile. GENERAL: The patient is alert and oriented. LUNGS: Diminished, but clear. CARDIOVASCULAR: Regular sinus rhythm, S1, S2, without murmur, rub, thrill, or extra heart sound. ABDOMEN: Soft, nontender. Cardiology take a look at her as well and make further evaluation on her overall weakness. IMPRESSION: Sepsis, urinary tract infection, chronic kidney disease, and type 2 diabetes. LABORATORY DATA: Low magnesium, elevated BNP. MARTINEZ MONTOYA MD DR: LILI/kimberly JOB#: [id number] / [id number]
[2019-01-20 19:40] VITALS: BP 127/75
[2019-01-20] MEDS: ATORVASTATIN CALCIUM 20 MG TABLET PO SCH (20:23)
[2019-01-20] MEDS: GABAPENTIN 300 MG CAPSULE. PO SCH (20:23)
[2019-01-20 22:50] VITALS: BP 126/70
[2019-01-21] MEDS: PIPERACILLIN/TAZOBACTAM 2.25 GM in IV NORMAL SALINE 50ML 50 ML IV SCH ×3 (00:03→11:53)
[2019-01-21 05:18] VITALS: BP 131/76
[2019-01-21 06:44] LABS: BASO % 1 % (0-3); EOS # 0.2 x10^3/uL (0.0-0.7); EOS % 3 % (0-3); HEMATOCRIT 34.6 % (36.0-47.0); HEMOGLOBIN 11.5 g/dL (12.0-15.5); LYMPH # 1.2 x10^3/uL (1.0-4.8); LYMPH % 19 % (24-48); MEAN CORPUSCULAR HEMOGLOBIN 28 pg (25-35); MEAN CORPUSCULAR HGB CONC 33 g/dL (31-37); MEAN CORPUSCULAR VOLUME 85 fL (79-100); MONO # 0.5 x10^3/uL (0.0-1.1); MONO % 7 % (0-9); NEUT # 4.2 x10^3uL (1.8-7.7); NEUT % 70 % (31-73); PLATELET COUNT 174 x10^3/uL (140-400); RED BLOOD COUNT 4.07 x10^6/uL (3.50-5.40); RED CELL DISTRIBUTION WIDTH 15.8 % (11.5-14.5); WHITE BLOOD COUNT 6.1 x10^3/uL (4.0-11.0)
[2019-01-21 06:54] LABS: ALBUMIN 2.3 g/dL (3.4-5.0); ALBUMIN/GLOBULIN RATIO 0.7 (1.0-1.7); CALCIUM 8.6 mg/dL (8.5-10.1); CREATININE 1.6 mg/dL (0.6-1.0); GFR 30.5; POTASSIUM 3.6 mmol/L (3.5-5.1); TOTAL BILIRUBIN 0.6 mg/dL (0.2-1.0); TOTAL PROTEIN 5.5 g/dL (6.4-8.2)
--- NOTE | 2019-01-21 07:14 | CARD ---
MR#: [id number] Date of Study: 01/20/2019 Ordering Physician: UMA TREVIÑO, Referring Physician: MARTINEZ MONTOYA, Tech: Elisa Mejia ZACHARY APPROVED REPORT EXAM: Two-dimensional and M-mode echocardiogram with Doppler and color Doppler. Other Information Quality : FairHR: 84bpm Technically limited study due to body habitus. INDICATION Congestive Heart Failure 2D DIMENSIONS Left Atrium(2D)4.9 (1.6-4.0cm)IVSd0.8 (0.7-1.1cm) Aortic Root(2D)2.0 (2.0-3.7cm)LVOT Diameter1.9 (1.8-2.4cm) PWd0.8 (0.7-1.1cm)LA [id number] (18-58mL) FS (%) 17.3 %SV40.2 ml Aortic Valve AoV Peak Asad.119.4cm/sAoV VTI22.6cm AO Peak GR.5.7mmHgLVOT Peak Asad.99.7cm/s LVOT VTI 18.36cmAO Mean GR.4mmHg TEMO (VMAX)2.92tn1SLU (VTI)2.34cm2 Mitral Valve MV E Velocity1.8cm/sMV E Peak Gr.13mmHg MV [id number] (PHT)4.58cm2 Tricuspid Valve TR P. [id number]/sRAP [id number] TR Peak Gr.24urVyXQSI77snSi LEFT VENTRICLE The left ventricular cavity is small. There is normal left ventricular wall thickness. The left ventr icular systolic function is normal and the ejection fraction is within normal range. EF 55% Grossly n ormal wall motion. Tissue Doppler imaging reveals moderate left ventricular diastolic dysfunction. RIGHT VENTRICLE The right ventricle is normal size. There is normal right ventricular wall thickness. The right ventr icular systolic function is normal. ATRIA The left atrium is severely dilated. Mild dilation of the right atrium. AORTIC VALVE Calcified trileaflet valve with mild decrease in mobility. Doppler and Color Flow revealed no signifi cant aortic regurgitation. There is no significant aortic valvular stenosis. There is no aortic valvu lar vegetation. MITRAL VALVE Mitral annular calcification is moderate to severe. There is no evidence of mitral valve prolapse. Th ere is mild mitral valve stenosis. Doppler and Color-flow revealed mild to moderate mitral regurgitat ion. TRICUSPID VALVE The tricuspid valve is normal in structure and function. Doppler and Color Flow revealed moderate tri cuspid regurgitation. Moderate PHTN. RVSP 47 mm Hg There is no tricuspid valve prolapse or vegetation . There is no tricuspid valve stenosis. PULMONIC VALVE Doppler and Color Flow revealed mild pulmonic valvular regurgitation. There is no pulmonic valvular s tenosis. GREAT VESSELS The aortic root is normal in size. The IVC is normal in size and collapses >50% with inspiration. PERICARDIAL EFFUSION There is no pleural effusion. There is no evidence of significant pericardial effusion. Critical Notification Critical Value: No <Conclusion> The left ventricular systolic function is normal and the ejection fraction is within normal range. EF 55% Grossly normal wall motion. Doppler and Color-flow revealed mild to moderate mitral regurgitation. Doppler and Color Flow revealed moderate tricuspid regurgitation. Moderate PHTN. RVSP 47 mm Hg Signed by : Tenzin Rice, Electronically Approved : 01/21/2019 07:14:13
[2019-01-21] MEDS: FUROSEMIDE 40 MG/4 ML VIAL IVP SCH (09:00)
[2019-01-21] MEDS: LACTOBACILLUS RHAMNOSUS GG 1 CAPSULE. PO SCH (09:32)
[2019-01-21] MEDS: METOPROLOL SUCC 24HR ER 25 MG TAB.ER.24H. PO SCH (09:32)
[2019-01-21] MEDS: MAGNESIUM CHLORIDE ER 64 MG TABLET.ER PO SCH (09:32)
[2019-01-21] MEDS: POTASSIUM CHLORIDE 10 MEQ TABLET.ER. PO SCH (09:32)
[2019-01-21] MEDS: PANTOPRAZOLE 40 MG TABLET. PO SCH (09:33)
[2019-01-21] MEDS: LOSARTAN 25 MG TABLET. PO SCH (09:33)
--- NOTE | 2019-01-21 10:22 | PDOC ---
PROGRESS NOTES Diagnosis Problem Problems Medical Problems: (1) Acute exacerbation of CHF (congestive heart failure) Status: Acute (2) Atrial fibrillation Status: Acute (3) Chronic renal insufficiency Status: Acute (4) Dizziness Status: Acute (5) Elevated liver enzymes Status: Acute (6) Hypochloremia Status: Acute (7) Hypomagnesemia Status: Acute (8) Hyponatremia Status: Acute (9) Rhabdomyolysis Status: Acute (10) Sepsis Status: Acute (11) Urinary tract infection Status: Acute Assessment Problems Medical Problems: (1) Acute exacerbation of CHF (congestive heart failure) Status: Acute (2) Atrial fibrillation Status: Acute (3) Chronic renal insufficiency Status: Acute (4) Dizziness Status: Acute (5) Elevated liver enzymes Status: Acute (6) Hypochloremia Status: Acute (7) Hypomagnesemia Status: Acute (8) Hyponatremia Status: Acute (9) Rhabdomyolysis Status: Acute (10) Sepsis Status: Acute (11) Urinary tract infection Status: Acute 1. elevated BNP in the setting of acute on chronic renal failure and sepsis - no overt clinical signs of volume overload at this time despite IVF. Normal LVEF with diastolic dysfunction by echo. continue supportive care and outpatient follow up. 2. moderate PHTN with tricuspid regurg but normal RV size and function 3. moderate MR 4. atrial fibrillation - Mild LAE/AQUILES, rate control and on warfarin for stroke prophylaxis 3. sepsis - per PCP 4. acute on chronic renal failure - cr improved with IVF. Monitor. Subjective no new complaints. no chest pain, dyspnea, lightheadedness or syncope Objective Vital Signs Date Time Temp Pulse Resp B/P (MAP) Pulse Ox O2 Delivery O2 Flow Rate FiO2 01/21/19 09:33 70 131/76 01/21/19 08:30 Room Air 01/21/19 05:18 98.0 18 97 Intake and Output 01/21/19 07:00 Intake Total 1345 ml Balance 1345 ml Intake Oral 770 ml IV Total 575 ml # Voids 7 # Bowel Movements 4 Physical Exam gen: awake alert and NAD CV: IRR, no gallops, clicks or rubs Lungs: clear abd :+ bowel sounds ext: trace edema Review of Relevant I have reviewed the following items herbert (where applicable) has been applied. Labs Laboratory Tests Test 01/19/19 13:10 01/20/19 06:33 01/21/19 06:08 Prothrombin Time 12.6 SEC (9.4-11.4) 13.2 SEC (9.4-11.4) 15.7 SEC (9.4-11.4) Prothromb Time International Ratio 1.3 (0.9-1.1) 1.3 (0.9-1.1) 1.6 (0.9-1.1) White Blood Count 6.3 x10^3/uL (4.0-11.0) 6.1 x10^3/uL (4.0-11.0) Red Blood Count 4.20 x10^6/uL (3.50-5.40) 4.07 x10^6/uL (3.50-5.40) Hemoglobin 11.8 g/dL (12.0-15.5) 11.5 g/dL (12.0-15.5) Hematocrit 35.5 % (36.0-47.0) 34.6 % (36.0-47.0) Mean Corpuscular Volume 85 fL (79-100) 85 fL (79-100) Mean Corpuscular Hemoglobin 28 pg (25-35) 28 pg (25-35) Mean Corpuscular Hemoglobin Concent 33 g/dL (31-37) 33 g/dL (31-37) Red Cell Distribution Width 15.9 % (11.5-14.5) 15.8 % (11.5-14.5) Platelet Count 180 x10^3/uL (140-400) 174 x10^3/uL (140-400) Neutrophils (%) (Auto) 72 % (31-73) 70 % (31-73) Lymphocytes (%) (Auto) 18 % (24-48) 19 % (24-48) Monocytes (%) (Auto) 8 % (0-9) 7 % (0-9) Eosinophils (%) (Auto) 2 % (0-3) 3 % (0-3) Basophils (%) (Auto) 0 % (0-3) 1 % (0-3) Neutrophils # (Auto) 4.5 x10^3uL (1.8-7.7) 4.2 x10^3uL (1.8-7.7) Lymphocytes # (Auto) 1.2 x10^3/uL (1.0-4.8) 1.2 x10^3/uL (1.0-4.8) Monocytes # (Auto) 0.5 x10^3/uL (0.0-1.1) 0.5 x10^3/uL (0.0-1.1) Eosinophils # (Auto) 0.1 x10^3/uL (0.0-0.7) 0.2 x10^3/uL (0.0-0.7) Basophils # (Auto) 0.0 x10^3/uL (0.0-0.2) 0.0 x10^3/uL (0.0-0.2) Sodium Level 130 mmol/L (136-145) 130 mmol/L (136-145) Potassium Level 3.7 mmol/L (3.5-5.1) 3.6 mmol/L (3.5-5.1) Chloride Level 96 mmol/L (98-107) 97 mmol/L (98-107) Carbon Dioxide Level 23 mmol/L (21-32) 23 mmol/L (21-32) Anion Gap 11 (6-14) 10 (6-14) Blood Urea Nitrogen 24 mg/dL (7-20) 19 mg/dL (7-20) Creatinine 1.8 mg/dL (0.6-1.0) 1.6 mg/dL (0.6-1.0) Estimated GFR (Cockcroft-Gault) 26.6 30.5 Glucose Level 93 mg/dL (70-99) 92 mg/dL (70-99) Calcium Level 8.8 mg/dL (8.5-10.1) 8.6 mg/dL (8.5-10.1) Thyroid Stimulating Hormone (TSH) 3.032 uIU/mL (0.358-3.740) BUN/Creatinine Ratio 12 (6-20) Total Bilirubin 0.6 mg/dL (0.2-1.0) Aspartate Amino Transf (AST/SGOT) 41 U/L (15-37) Alanine Aminotransferase (ALT/SGPT) 13 U/L (14-59) Alkaline Phosphatase 80 U/L (46-116) Total Protein 5.5 g/dL (6.4-8.2) Albumin 2.3 g/dL (3.4-5.0) Albumin/Globulin Ratio 0.7 (1.0-1.7) Microbiology 01/18/19 Blood Culture - Preliminary, Resulted NO GROWTH AFTER 2 DAYS... Medications Current Medications Ceftriaxone Sodium 1 gm/ Sodium Chloride 50 ml @ 100 mls/hr 1X ONCE IV Last administered on 01/18/19at 12:52; Start 01/18/19 at 12:00; Stop 01/18/19 at 12:29 ; Status DC Sodium Chloride 500 ml @ 0 mls/hr 1X ONCE IV Last administered on 01/18/19at 12 :54; Start 01/18/19 at 12:00; Stop 01/18/19 at 12:01; Status DC Magnesium Sulfate 50 ml @ 25 mls/hr 1X ONCE IV Last administered on 01/18/19at 13:51; Start 01/18/19 at 12:00; Stop 01/18/19 at 14:00; Status DC Sodium Chloride 50 ml @ As Directed STK-MED ONCE .ROUTE ; Start 01/18/19 at 12: 50; Stop 01/18/19 at 12:51; Status DC Ceftriaxone Sodium (Rocephin) 1 gm STK-MED ONCE .ROUTE ; Start 01/18/19 at 12:50 ; Stop 01/18/19 at 12:51; Status DC Sodium Chloride 1,000 ml @ 1,000 mls/hr 1X ONCE IV ; Start 01/18/19 at 15:30; Stop 01/18/19 at 15:43; Status DC Atorvastatin Calcium (Lipitor) 20 mg QHS PO Last administered on 01/20/19at 20: 23; Start 01/18/19 at 21:00 Metoprolol Succinate (Toprol Xl) 25 mg DAILY PO Last administered on 01/21/19at 09:32; Start 01/19/19 at 09:00 Gabapentin (Neurontin) 600 mg QHS PO Last administered on 01/20/19at 20:23; Start 01/18/19 at 21:00 Losartan Potassium (Cozaar) 100 mg DAILY PO ; Start 01/19/19 at 09:00; Stop 09/29 at 09:40; Status DC Pantoprazole Sodium (Protonix) 40 mg DAILYAC PO Last administered on 01/21/19at 09:33; Start 01/19/19 at 07:30 Potassium Chloride (Klor-Con) 10 meq BID PO Last administered on 01/21/19at 09: 32; Start 01/18/19 at 21:00 Triamterene/HCTZ (Maxzide 37.5/ 25mg) 1 tab DAILY PO Last administered on at 10:17; Start 01/19/19 at 09:00; Stop 01/20/19 at 07:24; Status DC Non-Formulary Medication (Warfarin Sodium ) 1 mg DAILY PO ; Start 01/19/19 at 09 :00; Stop 01/19/19 at 13:15; Status DC Non-Formulary Medication (Warfarin Sodium ) 4 mg DAILY PO ; Start 01/19/19 at 09 :00; Stop 01/19/19 at 13:16; Status DC Piperacillin Sod/ Tazobactam Sod (Zosyn Per Pharmacy) 1 each PRN DAILY PRN MC SEE COMMENTS; Start 01/18/19 at 15:30 Vancomycin HCl (Vanco Per Pharmacy) 1 each PRN DAILY PRN MC SEE COMMENTS Last administered on 01/18/19at 18:19; Start 01/18/19 at 15:30 Sodium Chloride 1,000 ml @ 75 mls/hr [id number] IV Last administered on at 17:00; Start 01/18/19 at 17:00; Stop 01/19/19 at 09:22; Status DC Piperacillin Sod/ Tazobactam Sod 2.25 gm/Sodium Chloride 50 ml @ 100 mls/hr Q6HRS IV Last administered on 01/21/19at 06:02; Start 01/18/19 at 18:00 Vancomycin HCl 2 gm/Sodium Chloride 500 ml @ 250 mls/hr 1X ONCE IV Last administered on 01/18/19at 18:04; Start 01/18/19 at 17:30; Stop 01/18/19 at 19:29 ; Status DC Vancomycin HCl 1.5 gm/Sodium Chloride 500 ml @ 250 mls/hr Q48H IV Last administered on 01/20/19at 20:23; Start 01/20/19 at 18:00 Vancomycin HCl (Vancomycin Trough Level) 1 each 1X ONCE MC ; Start 01/22/19 at 17:30; Stop 01/22/19 at 17:31 Losartan Potassium (Cozaar) 25 mg DAILY PO Last administered on 01/21/19 09:33 ; Start 01/20/19 at 09:00 Lactobacillus Rhamnosus (Culturelle) 1 cap BID PO Last administered on 09:32; Start 01/19/19 at 21:00 Tramadol HCl (Ultram) 50 mg PRN Q6HRS PRN PO PAIN Last administered on at 20:46; Start 01/19/19 at 11:45 Tramadol HCl (Ultram) 100 mg PRN Q6HRS PRN PO PAIN; Start 01/19/19 at 11:45 Warfarin Sodium (Coumadin) 5 mg 1X WARF ONCE PO Last administered on 17:33; Start 01/19/19 at 16:00; Stop 01/19/19 at 16:01; Status DC Warfarin Sodium (Coumadin Per Pharmacy) 1 each PRN DAILY PRN MC SEE COMMENTS Last administered on 01/20/19at 15:55; Start 01/19/19 at 13:45 Furosemide (Lasix) 40 mg DAILY IVP ; Start 01/20/19 at 09:00 Magnesium Chloride (Mag Delay) 64 mg DAILY PO Last administered on 01/21/19 09 :32; Start 01/20/19 at 10:00 Warfarin Sodium (Coumadin) 5 mg 1X WARF ONCE PO Last administered on at 16:18; Start 01/20/19 at 16:00; Stop 01/20/19 at 16:01; Status DC Active Scripts Active Reported Triamterene-Hctz 37.5-25 Mg Cp (Triamterene/Hydrochlorothiazid) 1 Each Capsule 1 Cap PO DAILY [Quinine "Leg Cramps"] 1 Atorvastatin Calcium 20 Mg Tablet 20 Mg PO HS Cozaar (Losartan Potassium) 100 Mg Tablet 100 Mg PO DAILY Potassium Chloride 10 Meq Tablet.er 10 Meq PO BID Warfarin Sodium 1 Mg Tablet 1 Mg PO DAILY Omeprazole 20 Mg Capsule.dr 20 Mg PO . PRN Warfarin Sodium 4 Mg Tablet 4 Mg PO DAILY Metoprolol Succinate ( Xl ) (Metoprolol Succinate) 25 Mg Tab.er.24h 25 Mg PO DAILY Gabapentin 600 Mg Tablet 600 Mg PO HS Vitals/I & O Vital Sign - Last 24 Hours 01/20/19 01/20/19 01/20/19 01/20/19 10:28 10:30 14:46 19:40 Temp 98.0 98.2 Pulse 92 68 68 81 Resp 20 18 B/P (MAP) 129/80 96/64 (75) 112/72 (85) 127/75 (92) Pulse Ox 99 99 97 O2 Delivery Room Air Room Air Room Air 01/20/19 01/20/19 01/21/19 01/21/19 20:32 22:50 05:18 08:30 Temp 98.8 98.0 Pulse 83 70 Resp 20 18 B/P (MAP) 126/70 (88) 131/76 (94) Pulse Ox 97 97 O2 Delivery Room Air Room Air Room Air Room Air 01/21/19 01/21/19 09:32 09:33 Pulse 70 70 B/P (MAP) 131/76 131/76 Intake and Output 01/20/19 01/20/19 01/21/19 15:00 23:00 07:00 Intake Total 230 ml 440 ml 675 ml Balance 230 ml 440 ml 675 ml UMA TREVIÑO APRN Jan 21, 2019 10:22
[2019-01-21 10:48] VITALS: BP 116/78
--- NOTE | 2019-02-20 19:06 | DS ---
DATE OF DISCHARGE: 01/21/2019 HOSPITAL COURSE: An 88-year-old female who came in through the Emergency Room after first being seen in the office, came in via dizziness, lightheadedness, severe urinary tract infection. She was in the bathroom, passed out or unable to get out of there and had to call 911 to get her on there. The patient was monitored carefully. She was brought in through the Emergency Room. Urinary tract infection showed Klebsiella aerogenes. Patient's labs showed elevated lactic acid, slightly low sodium. She also had an elevated BNP of nearly 13,000, slightly elevated troponin levels. Echocardiogram was done by Dr. Rice, Cardiology also was consulted on her. Ejection fraction 55%. The patient was also felt to have some type of acute on top of chronic diastolic heart failure, chronic atrial fibrillation. The patient actually made very good progress during the rest of her hospitalization and the patient was transferred to [place] for rehabilitation. IMPRESSION: Sepsis, urinary tract infection with Klebsiella aerogenes, acute on top of chronic diastolic heart failure, chronic kidney disease stage 3, type 2 diabetes, obesity, hyponatremia. The patient will be discharged on a diabetic diet. Monitor electrolytes as well as her water retention. She will follow up with Dr. Rice when she is out of the group home, make further evaluation on her. She will be on a heart healthy, low sodium diet and monitor her accordingly as an outpatient. MARTINEZ MONTOYA MD DR: LILI/kimberly JOB#: [id number] / [id number]
== END 2019-01-21 12:55 | DRG 871 ==
LOC: ER 10:29 → 1 SOUTH 12:35
PROVIDERS: ADMIT Family Medicine; ATTEND Family Medicine
DX: A41.9 Sepsis, unspecified organism (principal); N17.0 Acute kidney failure with tubular necrosis; I50.33 Acute on chronic diastolic (congestive) heart failure; M62.82 Rhabdomyolysis; I13.0 Hypertensive heart and chronic kidney disease with heart failure and stage 1 through stage 4 chronic kidney disease, or unspecified chronic kidney disease; N39.0 Urinary tract infection, site not specified; E87.1 Hypo-osmolality and hyponatremia; N17.9 Acute kidney failure, unspecified; I48.92 Unspecified atrial flutter; N18.9 Chronic kidney disease, unspecified; E83.42 Hypomagnesemia; I48.91 Unspecified atrial fibrillation; E87.8 Other disorders of electrolyte and fluid balance, not elsewhere classified; R74.8 Abnormal levels of other serum enzymes; E11.22 Type 2 diabetes mellitus with diabetic chronic kidney disease; F03.90 Unspecified dementia, unspecified severity, without behavioral disturbance, psychotic disturbance, mood disturbance, and anxiety; G47.30 Sleep apnea, unspecified; K21.9 Gastro-esophageal reflux disease without esophagitis; M48.00 Spinal stenosis, site unspecified; Z96.659 Presence of unspecified artificial knee joint; I95.9 Hypotension, unspecified; I48.2 Chronic atrial fibrillation; Z90.49 Acquired absence of other specified parts of digestive tract; Z90.710 Acquired absence of both cervix and uterus
CPT/HCPCS: 36415; 70450; 71045; 72131; 80048; 80053; 81001; 82550; 83605; 83690; 83735; 83880; 84443; 84484; 85025; 85610; 85730; 87040; 87086; 87186; 93005; 93306; 96365; 96367; J0696; J2543; J3370; J3475; J7040; 97110; 97116; 97535; 99291-25; J7030

== ENCOUNTER 2019-02-26 15:17 | Inpatient (IN) | payer MEDICARE, OTHER ==
[2019-02-26] VITALS (8 sets, daily range): BP systolic 108–162; BP diastolic 66–107
[~2019-02-26 15:17] MED LIST: ATOR20TA58 PO; GABA600T7 PO; LOSA100T2 PO; METO-239 PO; OMEP20CA9 PO; POTA10TA10 PO; TRIA1CAP3 PO; TRIA1TAB3 PO; WARF1TAB69 PO; WARF4TAB64 PO; [UNRECOGNIZED DRUG - REMARK]
[2019-02-26 15:58] LABS: BASO % 1 % (0-3); EOS # 0.1 x10^3/uL (0.0-0.7); EOS % 1 % (0-3); HEMATOCRIT 41.4 % (36.0-47.0); HEMOGLOBIN 13.6 g/dL (12.0-15.5); LYMPH # 1.4 x10^3/uL (1.0-4.8); LYMPH % 21 % (24-48); MEAN CORPUSCULAR HEMOGLOBIN 28 pg (25-35); MEAN CORPUSCULAR HGB CONC 33 g/dL (31-37); MEAN CORPUSCULAR VOLUME 85 fL (79-100); MONO # 0.5 x10^3/uL (0.0-1.1); MONO % 7 % (0-9); NEUT # 4.9 x10^3uL (1.8-7.7); NEUT % 71 % (31-73); PLATELET COUNT 263 x10^3/uL (140-400); RED BLOOD COUNT 4.89 x10^6/uL (3.50-5.40); RED CELL DISTRIBUTION WIDTH 16.9 % (11.5-14.5)
[2019-02-26 16:14] LABS: ALBUMIN 3.1 g/dL (3.4-5.0); ALBUMIN/GLOBULIN RATIO 0.7 (1.0-1.7); CALCIUM 9.2 mg/dL (8.5-10.1); CREATININE 1.7 mg/dL (0.6-1.0); GFR 28.4; MAGNESIUM 1.1 mg/dL (1.8-2.4); POTASSIUM 3.3 mmol/L (3.5-5.1); TOTAL BILIRUBIN 1.3 mg/dL (0.2-1.0); TOTAL PROTEIN 7.4 g/dL (6.4-8.2)
[2019-02-26] MEDS ORDERED: dilTIAZem VIAL 125 MG in IV DEXTROSE 5% 100 ML IV PRN (16:30)
[2019-02-26] MEDS ORDERED: WARFARIN 3 MG TABLET. PO ONE (17:00)
[2019-02-26] MEDS: POTASSIUM CHLORIDE 20 MEQ TABLET.ER. PO SCH ×2 (17:06→21:52)
[2019-02-26] MEDS: MAGNESIUM SULFATE 2GM 50 ML IV SCH (17:08)
--- NOTE | 2019-02-26 17:25 | EKG ---
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
[2019-02-26] MEDS ORDERED: FURO-68 PO (17:29)
[2019-02-26] MEDS ORDERED: MAGN64TA6 PO (17:29)
[2019-02-26] MEDS ORDERED: PANT40TA3 PO (17:29)
[2019-02-26] MEDS ORDERED: MULT1TAB52 PO (17:29)
[2019-02-26] MEDS ORDERED: NON FORMULARY ITEM (Omeprazole 20 MG) PO PRN (17:30)
[2019-02-26] MEDS ORDERED: NON FORMULARY ITEM (Potassium Chloride 10 MEQ) PO SCH (21:00)
[2019-02-26] MEDS ORDERED: GABAPENTIN 300 MG CAPSULE. PO SCH (21:00)
[2019-02-26] MEDS ORDERED: ATORVASTATIN CALCIUM 20 MG TABLET PO SCH (21:00)
[2019-02-26] MEDS ORDERED: ZOLPIDEM 5 MG TABLET. PO PRN (22:30)
[2019-02-26] MEDS ORDERED: ELECTROLYTE (NON-ICU) PROTOCOL MC PRN (22:30)
[2019-02-27] VITALS (10 sets, daily range): BP systolic 96–141; BP diastolic 67–85
[2019-02-27] MEDS: METOPROLOL SUCC 24HR ER 50 MG TAB.ER.24H. PO SCH ×2 (00:13→08:44)
[2019-02-27 06:16] LABS: BASO # 0.1 x10^3/uL (0.0-0.2); BASO % 1 % (0-3); EOS # 0.2 x10^3/uL (0.0-0.7); EOS % 2 % (0-3); HEMATOCRIT 37.4 % (36.0-47.0); HEMOGLOBIN 12.1 g/dL (12.0-15.5); LYMPH # 1.6 x10^3/uL (1.0-4.8); LYMPH % 22 % (24-48); MEAN CORPUSCULAR HEMOGLOBIN 28 pg (25-35); MEAN CORPUSCULAR HGB CONC 33 g/dL (31-37); MEAN CORPUSCULAR VOLUME 85 fL (79-100); MONO # 0.6 x10^3/uL (0.0-1.1); MONO % 9 % (0-9); NEUT # 4.9 x10^3uL (1.8-7.7); NEUT % 66 % (31-73); PLATELET COUNT 226 x10^3/uL (140-400); RED CELL DISTRIBUTION WIDTH 16.4 % (11.5-14.5); WHITE BLOOD COUNT 7.4 x10^3/uL (4.0-11.0)
[2019-02-27 06:32] LABS: ALBUMIN 2.7 g/dL (3.4-5.0); ALBUMIN/GLOBULIN RATIO 0.7 (1.0-1.7); CREATININE 1.5 mg/dL (0.6-1.0); GFR 32.8; MAGNESIUM 1.9 mg/dL (1.8-2.4); POTASSIUM 4.5 mmol/L (3.5-5.1); TOTAL BILIRUBIN 1.1 mg/dL (0.2-1.0); TOTAL PROTEIN 6.5 g/dL (6.4-8.2)
[2019-02-27] MEDS: MAGNESIUM SULFATE 2GM 50 ML IV SCH (08:45)
[2019-02-27] MEDS: POTASSIUM CHLORIDE 20 MEQ TABLET.ER. PO SCH (08:45)
--- NOTE | 2019-02-27 08:58 | RAD ---
Chest, 2 views, 02/27/2019: HISTORY: Shortness of breath Comparison is made to a study from 01/18/2019. The heart size is normal. There is considerable calcification of the mitral annulus. There is moderate calcific plaquing of the thoracic aorta. The pulmonary vascularity is normal. There is minimal streaky atelectasis or scarring laterally in the left base. The lungs are otherwise clear. There is no evidence of pleural fluid. IMPRESSION: 1. Aortic atherosclerosis. 2. Minimal left basilar atelectasis or scarring. Electronically signed by: Milton Barragan MD (02/27/2019 8:55 AM) [facility]
[2019-02-27] MEDS ORDERED: LOSARTAN 25 MG TABLET. PO SCH (09:00)
[2019-02-27] MEDS ORDERED: METOPROLOL SUCC 24HR ER 50 MG TAB.ER.24H. PO SCH (09:00)
[2019-02-27] MEDS ORDERED: MAGNESIUM CHLORIDE ER 64 MG TABLET.ER PO SCH (09:00)
[2019-02-27] MEDS ORDERED: PANTOPRAZOLE 40 MG TABLET. PO SCH (09:00)
[2019-02-27] MEDS ORDERED: FUROSEMIDE 40 MG TABLET PO SCH (09:00)
[2019-02-27] MEDS ORDERED: MULTIVITAMIN with MINERAL TABLET. PO SCH (09:00)
[2019-02-27] MEDS ORDERED: NON FORMULARY ITEM (Warfarin Sodium 3 MG) PO SCH (09:00)
[2019-02-27] MEDS ORDERED: METOPROLOL SUCC 24HR ER 25 MG TAB.ER.24H. PO SCH (09:00)
--- NOTE | 2019-02-27 10:06 | PDOC2 ---
CONSULT Date of Admission DATE: 02/27/19 TIME: 10:01 Reason for Consult: atrial fibrillation with RVR History of Present Illness Ms Kaufman is an 88 year old female who was directly admitted from her PCP office. She was recently admitted with sepsis and presyncope after which she was discharged to a rehab facility. She has been home for about 2 weeks. She reports she has been more fatigued but denies other complaints. She states she went to her doctors office for a follow up and "he sent me here". She has a known history of atrial fibrillation and normally follows with Dr Tao but has not seen him since her last admission. She denies chest pain, dyspnea or congestive symptoms. She denies lightheadedness, pre syncope or syncope. She states she is feeling fine and wants to go home. Son and daughter at bedside verbalize concerns about her memory. They state she has lost 12 lbs since being home. They say she has not been eating or drinking and are concerned about her living alone. They additionally report that she becomes short of breath with minimal exertion. They are requesting a change in her anticoagulant due to difficulty with managing INR testing. Past Medical History echo 01/21/19 The left ventricular systolic function is normal and the ejection fraction is within normal range. EF 55% Grossly normal wall motion. Doppler and Color-flow revealed mild to moderate mitral regurgitation. Doppler and Color Flow revealed moderate tricuspid regurgitation. Moderate PHTN. RVSP 47 mm Hg Cardiovascular: AFIB, CHF, HTN, Other GI: GERD Psych: Other (dementia) Renal/: Chronic renal insuff, UTI Past Surgical History Appendectomy, Cholecystectomy, Total knee replacement, Hysterectomy Family History non contributory due to age Social History non smoker, lives in her own home, no significant ETOH, no illicit drugs. Current Medications Current Medications Warfarin Sodium (Coumadin Per Pharmacy) 1 each PRN DAILY PRN MC SEE COMMENTS Last administered on 02/27/19at 08:06; Start 02/26/19 at 16:15 Diltiazem HCl 125 mg/Dextrose 125 ml @ 5 mls/hr CONT PRN IV SEE I/O RECORD; Start 02/26/19 at 16:30 Warfarin Sodium (Coumadin) 3 mg 1X WARF ONCE PO Last administered on at 17:08; Start 02/26/19 at 17:00; Stop 02/26/19 at 17:01; Status DC Potassium Chloride (Klor-Con) 40 meq BID PO Last administered on 02/27/19 08: 45; Start 02/26/19 at 16:45 Magnesium Sulfate 50 ml @ 50 mls/hr DAILY IV Last administered on 02/26/19at 17: 08; Start 02/26/19 at 17:00; Stop 02/27/19 at 09:59; Status DC Atorvastatin Calcium (Lipitor) 20 mg HS PO Last administered on 02/26/19 21:52 ; Start 02/26/19 at 21:00 Metoprolol Succinate (Toprol Xl) 25 mg DAILY PO ; Start 02/27/19 at 09:00; Stop 02/27/19 at 09:00; Status DC Furosemide (Lasix) 40 mg DAILY PO Last administered on 02/27/19 08:44; Start 02/27/19 at 09:00 Gabapentin (Neurontin) 600 mg HS PO Last administered on 02/26/19 21:52; Start 02/26/19 at 21:00 Losartan Potassium (Cozaar) 25 mg DAILY PO Last administered on 02/27/19 08:45 ; Start 02/27/19 at 09:00 Magnesium Chloride (Mag Delay) 64 mg DAILY PO Last administered on 02/27/19 08 :45; Start 02/27/19 at 09:00 Multivitamins/ Calcium (Thera-M Plus) 1 tab DAILY PO Last administered on 08:45; Start 02/27/19 at 09:00 Non-Formulary Medication (Omeprazole ) 20 mg PRN PO .; Start 02/26/19 at 17:30; Status UNV Pantoprazole Sodium (Protonix) 40 mg DAILY PO Last administered on 02/27/19at 08 :45; Start 02/27/19 at 09:00 Non-Formulary Medication (Potassium Chloride ) 10 meq BID PO ; Start 02/26/19 at 21:00; Status UNV Non-Formulary Medication (Warfarin Sodium ) 3 mg DAILY PO ; Start 02/27/19 at 09 :00; Status UNV Metoprolol Succinate (Toprol Xl) 50 mg DAILY PO ; Start 02/27/19 at 09:00; Stop 02/27/19 at 09:00; Status DC Info (Non-Icu Electrolyte Protocol) 1 ea CONT PRN PRN MC PER PROTOCOL; Start at 22:30 Zolpidem Tartrate (Ambien) 5 mg PRN QHS PRN PO INSOMNIA; Start 02/26/19 at 22: 30 Metoprolol Succinate (Toprol Xl) 50 mg DAILY PO Last administered on 02/27/19at 08:44; Start 02/26/19 at 23:15 Warfarin Sodium (Coumadin) 4 mg 1X WARF ONCE PO ; Start 02/27/19 at 16:00; Stop 02/27/19 at 16:01 Active Scripts Active Reported Multivitamins (Multivitamin) 1 Each Tablet 1 Tab PO DAILY Mag64 (Magnesium Chloride) 64 Mg Tablet.er 64 Mg PO DAILY Protonix (Pantoprazole Sodium) 40 Mg Tablet.dr 1 Tab PO DAILY Lasix (Furosemide) 40 Mg Tablet 1 Tab PO DAILY [Quinine "Leg Cramps"] 1 Atorvastatin Calcium 20 Mg Tablet 20 Mg PO HS Cozaar (Losartan Potassium) 100 Mg Tablet 25 Mg PO DAILY Potassium Chloride 10 Meq Tablet.er 10 Meq PO BID Omeprazole 20 Mg Capsule.dr 20 Mg PO . PRN Warfarin Sodium 4 Mg Tablet 3 Mg PO DAILY Metoprolol Succinate ( Xl ) (Metoprolol Succinate) 25 Mg Tab.er.24h 25 Mg PO DAILY Gabapentin 600 Mg Tablet 600 Mg PO HS Allergies: Coded Allergies: No Known Drug Allergies (Unverified , 01/18/19) Review of System as per HPI General: YES: Fatigue PSYCHOLOGICAL ROS: YES: Memory difficulties Respiratory: YES: SOB with excertion Cardiovascular: yes: Palpitations Neurological: YES: Memory Loss VITALS Vital Signs Date Time Temp Pulse Resp B/P (MAP) Pulse Ox O2 Delivery O2 Flow Rate FiO2 02/27/19 09:59 103 96/67 (77) 02/27/19 07:22 Room Air 02/27/19 06:37 95 02/27/19 05:45 17 02/27/19 04:52 98.3 Labs Laboratory Tests Test 02/26/19 15:40 02/27/19 05:33 02/27/19 05:35 White Blood Count 7.0 x10^3/uL (4.0-11.0) 7.4 x10^3/uL (4.0-11.0) Red Blood Count 4.89 x10^6/uL (3.50-5.40) 4.40 x10^6/uL (3.50-5.40) Hemoglobin 13.6 g/dL (12.0-15.5) 12.1 g/dL (12.0-15.5) Hematocrit 41.4 % (36.0-47.0) 37.4 % (36.0-47.0) Mean Corpuscular Volume 85 fL (79-100) 85 fL (79-100) Mean Corpuscular Hemoglobin 28 pg (25-35) 28 pg (25-35) Mean Corpuscular Hemoglobin Concent 33 g/dL (31-37) 33 g/dL (31-37) Red Cell Distribution Width 16.9 % (11.5-14.5) 16.4 % (11.5-14.5) Platelet Count 263 x10^3/uL (140-400) 226 x10^3/uL (140-400) Neutrophils (%) (Auto) 71 % (31-73) 66 % (31-73) Lymphocytes (%) (Auto) 21 % (24-48) 22 % (24-48) Monocytes (%) (Auto) 7 % (0-9) 9 % (0-9) Eosinophils (%) (Auto) 1 % (0-3) 2 % (0-3) Basophils (%) (Auto) 1 % (0-3) 1 % (0-3) Neutrophils # (Auto) 4.9 x10^3uL (1.8-7.7) 4.9 x10^3uL (1.8-7.7) Lymphocytes # (Auto) 1.4 x10^3/uL (1.0-4.8) 1.6 x10^3/uL (1.0-4.8) Monocytes # (Auto) 0.5 x10^3/uL (0.0-1.1) 0.6 x10^3/uL (0.0-1.1) Eosinophils # (Auto) 0.1 x10^3/uL (0.0-0.7) 0.2 x10^3/uL (0.0-0.7) Basophils # (Auto) 0.0 x10^3/uL (0.0-0.2) 0.1 x10^3/uL (0.0-0.2) Prothrombin Time 18.6 SEC (9.4-11.4) 18.1 SEC (9.4-11.4) Prothromb Time International Ratio 1.9 (0.9-1.1) 1.9 (0.9-1.1) Activated Partial Thromboplast Time 34 SEC (23-33) D-Dimer (Kayleigh) 0.53 mg/L (0.00-0.50) Sodium Level 141 mmol/L (136-145) 139 mmol/L (136-145) Potassium Level 3.3 mmol/L (3.5-5.1) 4.5 mmol/L (3.5-5.1) Chloride Level 102 mmol/L (98-107) 103 mmol/L (98-107) Carbon Dioxide Level 27 mmol/L (21-32) 27 mmol/L (21-32) Anion Gap 12 (6-14) 9 (6-14) Blood Urea Nitrogen 15 mg/dL (7-20) 14 mg/dL (7-20) Creatinine 1.7 mg/dL (0.6-1.0) 1.5 mg/dL (0.6-1.0) Estimated GFR (Cockcroft-Gault) 28.4 32.8 BUN/Creatinine Ratio 9 (6-20) 9 (6-20) Glucose Level 94 mg/dL (70-99) 85 mg/dL (70-99) Calcium Level 9.2 mg/dL (8.5-10.1) 9.0 mg/dL (8.5-10.1) Magnesium Level 1.1 mg/dL (1.8-2.4) 1.9 mg/dL (1.8-2.4) Total Bilirubin 1.3 mg/dL (0.2-1.0) 1.1 mg/dL (0.2-1.0) Aspartate Amino Transf (AST/SGOT) 16 U/L (15-37) 17 U/L (15-37) Alanine Aminotransferase (ALT/SGPT) 11 U/L (14-59) 10 U/L (14-59) Alkaline Phosphatase 101 U/L (46-116) 87 U/L (46-116) Troponin I Quantitative < 0.017 ng/mL (0-0.055) Total Protein 7.4 g/dL (6.4-8.2) 6.5 g/dL (6.4-8.2) Albumin 3.1 g/dL (3.4-5.0) 2.7 g/dL (3.4-5.0) Albumin/Globulin Ratio 0.7 (1.0-1.7) 0.7 (1.0-1.7) Images CXR - IMPRESSION: 1. Aortic atherosclerosis. 2. Minimal left basilar atelectasis or scarring. Assessment/Plan 1. known atrial fibrillation with RVR - continue OAC and rate control. Will need MCT for burden and janett. suspect tachy-janett. longest R-R observed 2 seconds. Will change to Xarelto per DPOA request. Instructed on risks/ benefits and questions answered. 2. anorexia with 12 lb weight loss in 2 weeks 3. CKD - GFR ~30 4. mental status change - consider neuro eval. 5. deconditioning - suggest PT for strengthening. Continue supportive care. Family would like admission to rehab facility. UMA [employer]REVI[employer] DES[employer] ENGINEER Feb 27, 2019 10:06
[2019-02-27] MEDS ORDERED: WARFARIN 4 MG TABLET. PO ONE (16:00)
[2019-02-27] MEDS ORDERED: RIVAROXABAN 15 MG TABLET. PO SCH (17:00)
--- NOTE | 2019-03-04 11:19 | DS ---
DATE OF DISCHARGE: 02/27/2019 HOSPITAL COURSE: The patient is an 88-year-old female, who came in from the office. She had recently been treated for sepsis; however, now she became increasingly weak wobbly and off balance. The patient was noted her heart was palpitating and she was noted to have atrial fibrillation with rapid ventricular response, some altered mental status. The patient was admitted to the hospital for further evaluation and treatment for her AVR. The patient otherwise made good progress during the rest of her hospitalization. The patient was noted to have a low potassium of 3.3 and elevated TSH of 4.16. The patient's creatinine dropped from 1.7, down to 1.5. The patient's potassium was corrected up to 4.5 and this may have been what stimulated it. Her magnesium was also very low at 1.1 and we brought it up to 1.9. Otherwise, the patient made good progress once her electrolytes were corrected and her heart rate came down into the 80s and 90s. IMPRESSION: Therefore, atrial fibrillation with rapid ventricular response, hypokalemia, low magnesium, severe protein malnutrition, hypothyroidism, and chronic kidney disease stage 3. DISCHARGE INSTRUCTIONS: The patient was discharged to [facility] and decreased activity and heart healthy diet. MARTINEZ MONTOYA MD DR: LILI/kimberly JOB#: [id number] / [id number]
== END 2019-02-27 14:00 | disposition home or self-care (01) | DRG 308 ==
LOC: ICU 15:17
PROVIDERS: ADMIT Family Medicine; ATTEND Family Medicine
DX: I48.91 Unspecified atrial fibrillation (principal); E43 Unspecified severe protein-calorie malnutrition; I13.0 Hypertensive heart and chronic kidney disease with heart failure and stage 1 through stage 4 chronic kidney disease, or unspecified chronic kidney disease; I50.9 Heart failure, unspecified; K21.9 Gastro-esophageal reflux disease without esophagitis; F03.90 Unspecified dementia, unspecified severity, without behavioral disturbance, psychotic disturbance, mood disturbance, and anxiety; N18.9 Chronic kidney disease, unspecified; Z90.710 Acquired absence of both cervix and uterus; Z96.659 Presence of unspecified artificial knee joint; Z90.49 Acquired absence of other specified parts of digestive tract; E87.6 Hypokalemia; N18.3 Chronic kidney disease, stage 3 (moderate); E03.9 Hypothyroidism, unspecified
CPT/HCPCS: 36415; 71046; 80053; 83735; 84443; 84484; 85025; 85379; 85610; 85730; 87641; 93005; J3475

== ENCOUNTER 2019-04-03 16:35 | Inpatient (IN) | payer MEDICARE, OTHER ==
[~2019-04-03] VITALS: Ht 165.1 cm; Wt 88.9 kg
[~2019-04-03 16:35] MED LIST changes: +FURO-68 PO; +MAGN64TA6 PO; +MULT1TAB52 PO; +PANT40TA3 PO
[2019-04-03 17:12] VITALS: BP 124/71
[2019-04-03] MEDS ORDERED: NON FORMULARY ITEM (Omeprazole 20 MG) PO PRN (17:15)
[2019-04-03 17:26] LABS: BASO % 1 % (0-3); EOS # 0.2 x10^3/uL (0.0-0.7); EOS % 2 % (0-3); HEMATOCRIT 24.9 % (36.0-47.0); HEMOGLOBIN 8.2 g/dL (12.0-15.5); LYMPH # 2.5 x10^3/uL (1.0-4.8); LYMPH % 28 % (24-48); MEAN CORPUSCULAR HEMOGLOBIN 28 pg (25-35); MEAN CORPUSCULAR HGB CONC 33 g/dL (31-37); MEAN CORPUSCULAR VOLUME 87 fL (79-100); MONO # 0.6 x10^3/uL (0.0-1.1); MONO % 7 % (0-9); NEUT # 5.7 x10^3uL (1.8-7.7); NEUT % 63 % (31-73); PLATELET COUNT 310 x10^3/uL (140-400); RED BLOOD COUNT 2.88 x10^6/uL (3.50-5.40)
[2019-04-03 17:32] LABS: ALBUMIN 3.1 g/dL (3.4-5.0); ALBUMIN/GLOBULIN RATIO 0.9 (1.0-1.7); CALCIUM 8.7 mg/dL (8.5-10.1); CREATININE 1.7 mg/dL (0.6-1.0); GFR 28.4; MAGNESIUM 1.6 mg/dL (1.8-2.4); POTASSIUM 3.2 mmol/L (3.5-5.1); TOTAL BILIRUBIN 0.7 mg/dL (0.2-1.0); TOTAL PROTEIN 6.6 g/dL (6.4-8.2)
[2019-04-03] MEDS ORDERED: RIVA10TA PO (17:32)
[2019-04-03] MEDS: POTASSIUM CHLORIDE 30 MEQ in IV 1/2 NORMAL SALINE 1,000 ML IV SCH (18:04)
--- NOTE | 2019-04-03 18:59 | RAD ---
CHEST PA LATERAL History: Weakness and dizziness Comparison: February 27, 2019 Findings: 2 views of the chest are submitted. There is atherosclerotic calcification of the aortic arch. There is prominent mitral annular calcification. Cardiac silhouette is stable. There is no new lobar consolidation, pleural fluid, pneumothorax. Impression: 1. No acute radiographic abnormality is identified. Electronically signed by: Marco Mix MD (04/03/2019 6:56 PM) [facility]
[2019-04-03 19:41] VITALS: BP 108/69
[2019-04-03] MEDS: POTASSIUM CHLORIDE 10 MEQ TABLET.ER. PO SCH (20:22)
[2019-04-03] MEDS: ATORVASTATIN CALCIUM 20 MG TABLET PO SCH (20:22)
[2019-04-03] MEDS: GABAPENTIN 300 MG CAPSULE. PO SCH (20:22)
[2019-04-03 21:46] LABS: BACTERIA,URINE FEW /HPF (0-FEW); BILIRUBIN,URINE NEG (NEG); CLARITY,URINE CLOUDY; COLOR,URINE YELLOW; GLUCOSE,URINE NEG (NEG); NITRITE,URINE NEG (NEG); RBC,URINE 0 /HPF (0-2); SQUAMOUS EPITHELIAL CELL,UR OCC /LPF; UROBILINOGEN,URINE 0.2 mg/dL (0.2 mg/dL); WBC,URINE 20-40 /HPF (0-4)
[2019-04-03 22:16] VITALS: BP 102/64
[2019-04-04 05:39] VITALS: BP 105/59
[2019-04-04 06:34] LABS: BASO % 1 % (0-3); EOS # 0.3 x10^3/uL (0.0-0.7); EOS % 4 % (0-3); HEMATOCRIT 21.8 % (36.0-47.0); HEMOGLOBIN 7.2 g/dL (12.0-15.5); LYMPH # 1.9 x10^3/uL (1.0-4.8); LYMPH % 27 % (24-48); MEAN CORPUSCULAR HEMOGLOBIN 29 pg (25-35); MEAN CORPUSCULAR HGB CONC 33 g/dL (31-37); MEAN CORPUSCULAR VOLUME 87 fL (79-100); MONO # 0.5 x10^3/uL (0.0-1.1); MONO % 7 % (0-9); NEUT # 4.3 x10^3uL (1.8-7.7); NEUT % 62 % (31-73); PLATELET COUNT 229 x10^3/uL (140-400); RED BLOOD COUNT 2.51 x10^6/uL (3.50-5.40); RED CELL DISTRIBUTION WIDTH 17.8 % (11.5-14.5)
[2019-04-04 06:48] LABS: CALCIUM 8.8 mg/dL (8.5-10.1); CREATININE 1.6 mg/dL (0.6-1.0); GFR 30.5; POTASSIUM 3.5 mmol/L (3.5-5.1)
[2019-04-04] MEDS: MULTIVITAMIN with MINERAL TABLET. PO SCH (08:05)
[2019-04-04] MEDS: POTASSIUM CHLORIDE 10 MEQ TABLET.ER. PO SCH ×2 (08:06→21:18)
[2019-04-04] MEDS: PANTOPRAZOLE 40 MG TABLET. PO SCH (08:06)
[2019-04-04] MEDS: MAGNESIUM CHLORIDE ER 64 MG TABLET.ER PO SCH (08:07)
[2019-04-04] MEDS: POTASSIUM CHLORIDE 30 MEQ in IV 1/2 NORMAL SALINE 1,000 ML IV SCH (08:08)
[2019-04-04] MEDS ORDERED: FUROSEMIDE 40 MG TABLET PO SCH (09:00)
[2019-04-04] MEDS ORDERED: LOSARTAN 25 MG TABLET. PO SCH (09:00)
[2019-04-04] MEDS ORDERED: METOPROLOL SUCC 24HR ER 25 MG TAB.ER.24H. PO SCH ×2 (09:00)
[2019-04-04 09:45] LABS: FECAL OB PT POSITIVE (NEG)
[2019-04-04 10:15] VITALS: BP 97/54
[2019-04-04 10:38] LABS: BASO # 0.1 x10^3/uL (0.0-0.2); BASO % 1 % (0-3); EOS # 0.2 x10^3/uL (0.0-0.7); EOS % 3 % (0-3); HEMATOCRIT 23.1 % (36.0-47.0); HEMOGLOBIN 7.5 g/dL (12.0-15.5); LYMPH # 1.7 x10^3/uL (1.0-4.8); LYMPH % 22 % (24-48); MEAN CORPUSCULAR HEMOGLOBIN 28 pg (25-35); MEAN CORPUSCULAR HGB CONC 33 g/dL (31-37); MEAN CORPUSCULAR VOLUME 87 fL (79-100); MONO # 0.6 x10^3/uL (0.0-1.1); MONO % 7 % (0-9); NEUT # 5.3 x10^3uL (1.8-7.7); NEUT % 67 % (31-73); PLATELET COUNT 275 x10^3/uL (140-400); RED BLOOD COUNT 2.66 x10^6/uL (3.50-5.40); RED CELL DISTRIBUTION WIDTH 18.1 % (11.5-14.5); WHITE BLOOD COUNT 7.8 x10^3/uL (4.0-11.0)
[2019-04-04] MEDS: SUCRALFATE 1 GM TABLET. PO SCH ×3 (12:14→21:17)
--- NOTE | 2019-04-04 12:53 | PN ---
DATE: 04/04/2019 SUBJECTIVE: This is an 88-year-old female in with the acute GI bleed. She is resting fairly comfortably. OBJECTIVE: VITAL SIGNS: Blood pressure 97/54, respiration 18, pulse 86, afebrile. GENERAL: The patient is alert and oriented. LUNGS: Diminished, but clear. CARDIOVASCULAR: Irregularly irregular rhythm. ABDOMEN: Soft, nontender. EXTREMITIES: No clubbing, cyanosis or edema. The fecal Hemoccults are positive. LABORATORY DATA: The patient has been adjusted on her medications. She is on Protonix as well as Carafate and taken up anything, she will be put on SCD hoses and make further evaluation on her as indicated per those results. Otherwise, the patient is alert and oriented. Lungs diminished throughout, but clear. Cardiovascular is irregularly irregular rhythm is noted. IMPRESSION: Acute gastrointestinal bleed, hypotension, generalized weakness. PLAN: Continue to monitor the patient and the iron levels were pending and make further evaluation if she needed to be transferred or not. Presently, she is stable. MARTINEZ MONTOYA MD DR: LILI/kimberly JOB#: [id number] / [id number]
[2019-04-04 15:55] VITALS: BP 92/58
[2019-04-04 20:22] VITALS: BP 101/50
[2019-04-04] MEDS: GABAPENTIN 300 MG CAPSULE. PO SCH (21:17)
[2019-04-04] MEDS: ATORVASTATIN CALCIUM 20 MG TABLET PO SCH (21:17)
[2019-04-05] VITALS (9 sets, daily range): BP systolic 96–126; BP diastolic 54–68
[2019-04-05] MEDS: POTASSIUM CHLORIDE 30 MEQ in IV 1/2 NORMAL SALINE 1,000 ML IV SCH ×2 (01:48→10:06)
[2019-04-05 07:33] LABS: BASO % 1 % (0-3); EOS # 0.3 x10^3/uL (0.0-0.7); EOS % 4 % (0-3); LYMPH # 1.4 x10^3/uL (1.0-4.8); LYMPH % 23 % (24-48); MEAN CORPUSCULAR HEMOGLOBIN 28 pg (25-35); MEAN CORPUSCULAR HGB CONC 33 g/dL (31-37); MEAN CORPUSCULAR VOLUME 87 fL (79-100); MONO # 0.4 x10^3/uL (0.0-1.1); MONO % 7 % (0-9); NEUT # 4.2 x10^3uL (1.8-7.7); NEUT % 66 % (31-73); PLATELET COUNT 191 x10^3/uL (140-400); RED BLOOD COUNT 2.23 x10^6/uL (3.50-5.40); RED CELL DISTRIBUTION WIDTH 18.3 % (11.5-14.5); WHITE BLOOD COUNT 6.3 x10^3/uL (4.0-11.0)
[2019-04-05 07:35] LABS: CALCIUM 8.4 mg/dL (8.5-10.1); CREATININE 1.5 mg/dL (0.6-1.0); GFR 32.8; POTASSIUM 3.9 mmol/L (3.5-5.1)
[2019-04-05 07:37] LABS: HEMOGLOBIN 6.3 g/dL (12.0-15.5)
[2019-04-05 07:38] LABS: HEMATOCRIT 19.4 % (36.0-47.0)
[2019-04-05] MEDS: MULTIVITAMIN with MINERAL TABLET. PO SCH (08:13)
[2019-04-05] MEDS: MAGNESIUM CHLORIDE ER 64 MG TABLET.ER PO SCH (08:13)
[2019-04-05] MEDS: SUCRALFATE 1 GM TABLET. PO SCH ×2 (08:13→12:09)
[2019-04-05] MEDS: POTASSIUM CHLORIDE 10 MEQ TABLET.ER. PO SCH (08:14)
[2019-04-05] MEDS: PANTOPRAZOLE 40 MG TABLET. PO SCH (08:14)
[2019-04-05] MEDS ORDERED: ACETAMINOPHEN 500 MG TABLET PO PRN (08:15)
[2019-04-05] MEDS ORDERED: diphenhydrAMINE HCL 25 MG CAPSULE PO ONE (08:15)
[2019-04-05] MEDS ORDERED: PANTOPRAZOLE IV 80 MG in IV NORMAL SALINE 100ML 100 ML IV SCH (11:00)
--- NOTE | 2019-04-05 16:39 | PN ---
DATE: SUBJECTIVE: The patient apparently with possible GI bleed. Hemoglobin dropped down into the 6 range. She is pale white, but feeling fairly good overall. She was given 2 units packed RBCs. OBJECTIVE: VITAL SIGNS: Blood pressure 106/57, respiratory rate 20, pulse 62, afebrile. GENERAL: The patient is alert and oriented. LUNGS: Diminished, but clear. CARDIOVASCULAR: Stable, irregularly irregular rhythm. ABDOMEN: Soft, nontender. EXTREMITIES: No clubbing, cyanosis, or edema. NEUROLOGIC: Intact. The patient had positive Hemoccults, was given 2 units packed RBCs and plan to transfer. She is on IV Protonix and Carafate and make further evaluation on her. She is also using SCDs. IMPRESSION: Acute gastrointestinal bleed, anemia secondary to acute gastrointestinal bleed. She will need endoscopic evaluation. MARTINEZ MONTOYA MD DR: LILI/kimberly JOB#: [id number] / [id number]
--- NOTE | 2019-04-14 02:53 | DS ---
DATE OF DISCHARGE: 04/05/2019 HOSPITAL COURSE: An 88-year-old female who came in with acute gastrointestinal bleed, anemia secondary to the bleed. The patient had been placed on IV Protonix and Carafate. She made steady progress, but still was anemic, still was having blood coming forth from her rectum, and as a result of this, was transferred down to [place] for further evaluation by GI specialist at that facility. The patient had no complications, has made good progress and was sent to [place]. She was on clear liquid diet. Continue with fluids and make further evaluation on her as indicated per those results. She had urinary tract infection and that was relayed on to the physicians down at [place]. See MRAD. Decreased activity, transferred via EMS. IMPRESSION: Acute gastrointestinal bleed, anemia secondary to acute gastrointestinal bleed, urinary tract infection, atrial fibrillation, hypotension. PLAN: As above. MARTINEZ MONTOYA MD DR: LILI/kimberly JOB#: [id number] / [id number]
== END 2019-04-05 14:30 | disposition short-term general hospital (02) | DRG 378 ==
LOC: 1 SOUTH 16:35
PROVIDERS: ADMIT Family Medicine; ATTEND Family Medicine
PROC: 30233N1 Transfusion of Nonautologous Red Blood Cells into Peripheral Vein, Percutaneous Approach (ICD-10-PCS; principal; 2019-04-03)
DX: K92.2 Gastrointestinal hemorrhage, unspecified (principal); D62 Acute posthemorrhagic anemia; N39.0 Urinary tract infection, site not specified; I95.9 Hypotension, unspecified; Z79.899 Other long term (current) drug therapy; I48.91 Unspecified atrial fibrillation
CPT/HCPCS: 36415; 71046; 80048; 80053; 81001; 82274; 82550; 83540; 83550; 83605; 83735; 84443; 84484; 85025; 85379; 86850; 86900; 86901; 86920; 87086; 87186; C9113; J7030; P9016; Q0163

== ENCOUNTER 2019-04-10 15:40 | Inpatient (IN) | payer MEDICARE, OTHER ==
[~2019-04-10] VITALS: Ht 165.1 cm; Wt 102.1 kg
[~2019-04-10 15:40] MED LIST changes: +RIVA10TA PO
[2019-04-10 15:56] VITALS: BP 124/87
[2019-04-10] MEDS ORDERED: ASPI-630 PO (17:28)
[2019-04-10] MEDS ORDERED: FERR325T14 PO (17:28)
[2019-04-10] MEDS ORDERED: POLY17PO5 PO (17:28)
[2019-04-10] MEDS ORDERED: METO50TA29 PO (17:29)
[2019-04-10] MEDS ORDERED: NON FORMULARY ITEM (Omeprazole 20 MG) PO PRN (17:30)
[2019-04-10] MEDS ORDERED: METO25TA4 PO (17:45)
[2019-04-10 20:00] VITALS: BP 128/77
[2019-04-10] MEDS: METOPROLOL TART IMMED RELEASE 25 MG TABLET PO SCH (20:04)
[2019-04-10] MEDS: GABAPENTIN 300 MG CAPSULE. PO SCH (20:04)
[2019-04-10] MEDS: ATORVASTATIN CALCIUM 20 MG TABLET PO SCH (20:04)
[2019-04-10] MEDS: POTASSIUM CHLORIDE 10 MEQ TABLET.ER. PO SCH (20:04)
[2019-04-11 05:47] VITALS: BP 131/53
[2019-04-11] MEDS ORDERED: METOPROLOL SUCC 24HR ER 50 MG TAB.ER.24H. PO SCH (08:00)
[2019-04-11] MEDS: ASPIRIN 81 MG TAB.CHEW PO SCH (08:48)
[2019-04-11] MEDS: FUROSEMIDE 40 MG TABLET PO SCH (08:48)
[2019-04-11] MEDS: PANTOPRAZOLE 40 MG TABLET. PO SCH (08:48)
[2019-04-11] MEDS: FERROUS SULFATE 325 MG TABLET. PO SCH ×2 (08:48→15:31)
[2019-04-11] MEDS: POTASSIUM CHLORIDE 10 MEQ TABLET.ER. PO SCH ×2 (08:48→20:53)
[2019-04-11] MEDS: METOPROLOL TART IMMED RELEASE 25 MG TABLET PO SCH ×2 (08:48→20:53)
[2019-04-11] MEDS: MAGNESIUM CHLORIDE ER 64 MG TABLET.ER PO SCH (08:48)
[2019-04-11] MEDS: MULTIVITAMIN with MINERAL TABLET. PO SCH (08:48)
[2019-04-11] MEDS: POLYETHYLENE GLYCOL 3350 17 GM PACKET. PO SCH (08:50)
[2019-04-11 09:32] LABS: BASO # 0.1 x10^3/uL (0.0-0.2); BASO % 1 % (0-3); EOS # 0.3 x10^3/uL (0.0-0.7); EOS % 4 % (0-3); LYMPH # 1.3 x10^3/uL (1.0-4.8); LYMPH % 18 % (24-48); MEAN CORPUSCULAR HEMOGLOBIN 28 pg (25-35); MEAN CORPUSCULAR HGB CONC 32 g/dL (31-37); MEAN CORPUSCULAR VOLUME 88 fL (79-100); MONO # 0.6 x10^3/uL (0.0-1.1); MONO % 7 % (0-9); NEUT # 5.3 x10^3uL (1.8-7.7); NEUT % 70 % (31-73); PLATELET COUNT 302 x10^3/uL (140-400); RED BLOOD COUNT 3.28 x10^6/uL (3.50-5.40); RED CELL DISTRIBUTION WIDTH 18.4 % (11.5-14.5); WHITE BLOOD COUNT 7.6 x10^3/uL (4.0-11.0)
[2019-04-11 09:38] LABS: HEMOGLOBIN 9.2 g/dL (12.0-15.5)
--- NOTE | 2019-04-11 10:17 | HP ---
ADMIT DATE: 04/10/2019 HISTORY OF PRESENT ILLNESS: An 88-year-old female transferred here from [place] where she was admitted for an acute GI bleed. The patient says they did not find anything in particular on her scans that were performed down there. She says she feels somewhat better, but still very weak and difficulty in moving. The patient was admitted to the skilled unit. She is on skilled facility or swing bed to continue her rehabilitation. PAST MEDICAL HISTORY: Mild dementia, sleep apnea, gastrointestinal problems. She has had history of cholecystectomy, appendectomy, hysterectomy, mild obesity, renal disease, urinary incontinence, orthopedic surgery, left knee joint replacement, clotting problems. IMMUNIZATIONS: Tetanus and influenza up-to-date. ALLERGIES: No known allergies. MEDICATIONS: Reconciled. See the reconciliation list. SOCIAL HISTORY: The patient denies smoking, alcohol or drug use. REVIEW OF SYSTEMS: Out of generalized weakness, the patient denies any chest pain or shortness of breath. Denies any melena, hematochezia, or hematemesis presently and neurologically stable. No shortness of breath or abdominal pain. No nausea or vomiting. PHYSICAL EXAMINATION: GENERAL: Pleasant white female. VITAL SIGNS: Blood pressure 131/53, respiratory rate 22, pulse 67, afebrile. HEENT: The patient's head was atraumatic, normocephalic. Eyes: PERRLA without jaundice. The mouth and throat were normal. NECK: Supple, without JVD, carotid bruits. No thyromegaly. LUNGS: Diminished throughout, but clear. CARDIOVASCULAR: Irregularly irregular. ABDOMEN: Soft, protuberant. EXTREMITIES: No clubbing, cyanosis nor edema. NEUROLOGIC: The patient was alert and oriented x 3. Speech was spontaneous. She was answering questions and seemed to have good mental insight as to what was going on with her daily routine and her situation. IMPRESSION: Skilled unit for further rehabilitation. PLAN: Continue with PT, OT. We will monitor her blood count to make sure that has come back up and make further evaluation on her as indicated. MARTINEZ MONTOYA MD DR: LILI/kimberly JOB#: [id number] / [id number]
[2019-04-11 17:57] VITALS: BP 128/68
[2019-04-11] MEDS: GABAPENTIN 300 MG CAPSULE. PO SCH (20:52)
[2019-04-11] MEDS: ATORVASTATIN CALCIUM 20 MG TABLET PO SCH (20:52)
[2019-04-12] MEDS: LEVOTHYROXINE 100 MCG TABLET PO SCH (06:17)
[2019-04-12 06:39] VITALS: BP 110/69
[2019-04-12] MEDS: PANTOPRAZOLE 40 MG TABLET. PO SCH (08:25)
[2019-04-12] MEDS: FUROSEMIDE 40 MG TABLET PO SCH (08:25)
[2019-04-12] MEDS: MAGNESIUM CHLORIDE ER 64 MG TABLET.ER PO SCH (08:25)
[2019-04-12] MEDS: ASPIRIN 81 MG TAB.CHEW PO SCH (08:25)
[2019-04-12] MEDS: MULTIVITAMIN with MINERAL TABLET. PO SCH (08:25)
[2019-04-12] MEDS: POLYETHYLENE GLYCOL 3350 17 GM PACKET. PO SCH (08:25)
[2019-04-12] MEDS: POTASSIUM CHLORIDE 10 MEQ TABLET.ER. PO SCH ×2 (08:26→21:23)
[2019-04-12] MEDS: METOPROLOL TART IMMED RELEASE 25 MG TABLET PO SCH ×2 (08:26→21:22)
[2019-04-12] MEDS: FERROUS SULFATE 325 MG TABLET. PO SCH ×2 (08:26→14:31)
--- NOTE | 2019-04-12 14:33 | RAD ---
Examination: Ultrasound left medial arm at the antecubital fossa History: History of painful warm nodule left medial arm Comparison: None available. Findings/impression: There is a 12.9 cm long hypoechogenicity identified in the soft tissues of the left medial arm could be hypoechoic fluid collection or a thrombosed superficial vein. Correlate clinically.
[2019-04-12 17:53] VITALS: BP 128/77
[2019-04-12] MEDS: ATORVASTATIN CALCIUM 20 MG TABLET PO SCH (21:22)
[2019-04-12] MEDS: GABAPENTIN 300 MG CAPSULE. PO SCH (21:22)
[2019-04-13] MEDS: LEVOTHYROXINE 100 MCG TABLET PO SCH (06:16)
[2019-04-13 06:30] VITALS: BP 142/61
[2019-04-13] MEDS: PANTOPRAZOLE 40 MG TABLET. PO SCH (08:54)
[2019-04-13] MEDS: MULTIVITAMIN with MINERAL TABLET. PO SCH (08:54)
[2019-04-13] MEDS: METOPROLOL TART IMMED RELEASE 25 MG TABLET PO SCH ×2 (08:54→20:52)
[2019-04-13] MEDS: MAGNESIUM CHLORIDE ER 64 MG TABLET.ER PO SCH (08:54)
[2019-04-13] MEDS: POLYETHYLENE GLYCOL 3350 17 GM PACKET. PO SCH (08:54)
[2019-04-13] MEDS: ASPIRIN 81 MG TAB.CHEW PO SCH (08:54)
[2019-04-13] MEDS: FUROSEMIDE 40 MG TABLET PO SCH (08:54)
[2019-04-13] MEDS: POTASSIUM CHLORIDE 10 MEQ TABLET.ER. PO SCH ×2 (08:55→20:52)
[2019-04-13] MEDS: FERROUS SULFATE 325 MG TABLET. PO SCH ×2 (08:55→13:39)
[2019-04-13 18:15] VITALS: BP 107/72
[2019-04-13] MEDS: ATORVASTATIN CALCIUM 20 MG TABLET PO SCH (20:52)
[2019-04-13] MEDS: GABAPENTIN 300 MG CAPSULE. PO SCH (20:52)
--- NOTE | 2019-04-14 02:29 | PN ---
DATE: 04/13/2019 SUBJECTIVE: This is an 88-year-old female who has a swelling to her left upper arm. It appears to be phlebitis secondary to diabetes, fairly hard, approximately 4-5 inches long. The patient was told to use warm packs. Otherwise, she is feeling good. OBJECTIVE: VITAL SIGNS: Blood pressure 140/60, respiratory rate 18, pulse 100, afebrile. LUNGS: Diminished. CARDIOVASCULAR: Irregularly irregular rhythm. ABDOMEN: Soft, nontender. EXTREMITIES: Swelling to the left upper arm. IMPRESSION: Thrombophlebitis, generalized weakness, and dyspnea. PLAN: Continue to monitor and continue with PT, OT and make further evaluation once that has been performed. MARTINEZ MONTOYA MD DR: LILI/kimberly JOB#: [id number] / [id number]
[2019-04-14] MEDS: LEVOTHYROXINE 100 MCG TABLET PO SCH (05:29)
[2019-04-14 05:41] VITALS: BP 128/65
[2019-04-14] MEDS: POLYETHYLENE GLYCOL 3350 17 GM PACKET. PO SCH (09:00)
[2019-04-14] MEDS: POTASSIUM CHLORIDE 10 MEQ TABLET.ER. PO SCH ×2 (09:01→20:39)
[2019-04-14] MEDS: MULTIVITAMIN with MINERAL TABLET. PO SCH (09:01)
[2019-04-14] MEDS: FERROUS SULFATE 325 MG TABLET. PO SCH ×2 (09:01→14:12)
[2019-04-14] MEDS: METOPROLOL TART IMMED RELEASE 25 MG TABLET PO SCH ×2 (09:01→20:40)
[2019-04-14] MEDS: MAGNESIUM CHLORIDE ER 64 MG TABLET.ER PO SCH (09:01)
[2019-04-14] MEDS: PANTOPRAZOLE 40 MG TABLET. PO SCH (09:02)
[2019-04-14] MEDS: ASPIRIN 81 MG TAB.CHEW PO SCH (09:02)
[2019-04-14] MEDS: FUROSEMIDE 40 MG TABLET PO SCH (09:02)
[2019-04-14 17:32] VITALS: BP 137/87
[2019-04-14] MEDS: ATORVASTATIN CALCIUM 20 MG TABLET PO SCH (20:39)
[2019-04-14] MEDS: GABAPENTIN 300 MG CAPSULE. PO SCH (20:39)
[2019-04-15] MEDS: LEVOTHYROXINE 100 MCG TABLET PO SCH (05:43)
[2019-04-15 05:51] VITALS: BP 109/70
[2019-04-15 06:42] LABS: BASO # 0.1 x10^3/uL (0.0-0.2); BASO % 1 % (0-3); EOS # 0.3 x10^3/uL (0.0-0.7); EOS % 6 % (0-3); HEMATOCRIT 28.5 % (36.0-47.0); LYMPH # 1.4 x10^3/uL (1.0-4.8); LYMPH % 25 % (24-48); MEAN CORPUSCULAR HEMOGLOBIN 28 pg (25-35); MEAN CORPUSCULAR HGB CONC 32 g/dL (31-37); MEAN CORPUSCULAR VOLUME 89 fL (79-100); MONO # 0.4 x10^3/uL (0.0-1.1); MONO % 7 % (0-9); NEUT # 3.2 x10^3uL (1.8-7.7); NEUT % 61 % (31-73); PLATELET COUNT 233 x10^3/uL (140-400); RED CELL DISTRIBUTION WIDTH 19.7 % (11.5-14.5); WHITE BLOOD COUNT 5.4 x10^3/uL (4.0-11.0)
[2019-04-15] MEDS: POLYETHYLENE GLYCOL 3350 17 GM PACKET. PO SCH (08:00)
[2019-04-15] MEDS: ASPIRIN 81 MG TAB.CHEW PO SCH (08:36)
[2019-04-15] MEDS: METOPROLOL TART IMMED RELEASE 25 MG TABLET PO SCH ×2 (08:36→20:39)
[2019-04-15] MEDS: POTASSIUM CHLORIDE 10 MEQ TABLET.ER. PO SCH ×2 (08:36→20:39)
[2019-04-15] MEDS: PANTOPRAZOLE 40 MG TABLET. PO SCH (08:37)
[2019-04-15] MEDS: MULTIVITAMIN with MINERAL TABLET. PO SCH (08:37)
[2019-04-15] MEDS: MAGNESIUM CHLORIDE ER 64 MG TABLET.ER PO SCH (08:37)
[2019-04-15] MEDS: FUROSEMIDE 40 MG TABLET PO SCH (08:37)
[2019-04-15] MEDS: FERROUS SULFATE 325 MG TABLET. PO SCH ×2 (08:37→14:48)
[2019-04-15 18:09] VITALS: BP 122/57
[2019-04-15] MEDS: GABAPENTIN 300 MG CAPSULE. PO SCH (20:39)
[2019-04-15] MEDS: ATORVASTATIN CALCIUM 20 MG TABLET PO SCH (20:39)
[2019-04-16] MEDS: LEVOTHYROXINE 100 MCG TABLET PO SCH (05:28)
[2019-04-16 05:43] VITALS: BP 128/80
[2019-04-16] MEDS: POLYETHYLENE GLYCOL 3350 17 GM PACKET. PO SCH (07:42)
[2019-04-16] MEDS: FERROUS SULFATE 325 MG TABLET. PO SCH ×2 (07:43→14:36)
[2019-04-16] MEDS: MAGNESIUM CHLORIDE ER 64 MG TABLET.ER PO SCH (07:43)
[2019-04-16] MEDS: MULTIVITAMIN with MINERAL TABLET. PO SCH (07:43)
[2019-04-16] MEDS: ASPIRIN 81 MG TAB.CHEW PO SCH (07:43)
[2019-04-16] MEDS: FUROSEMIDE 40 MG TABLET PO SCH (07:43)
[2019-04-16] MEDS: POTASSIUM CHLORIDE 10 MEQ TABLET.ER. PO SCH ×2 (07:44→21:05)
[2019-04-16] MEDS: METOPROLOL TART IMMED RELEASE 25 MG TABLET PO SCH ×2 (07:44→21:05)
[2019-04-16] MEDS: PANTOPRAZOLE 40 MG TABLET. PO SCH (07:44)
[2019-04-16 13:44] VITALS: BP 100/59
[2019-04-16 18:30] VITALS: BP 122/77
[2019-04-16 21:00] VITALS: BP 128/69
[2019-04-16] MEDS: ATORVASTATIN CALCIUM 20 MG TABLET PO SCH (21:04)
[2019-04-16] MEDS: GABAPENTIN 300 MG CAPSULE. PO SCH (21:04)
[2019-04-17] MEDS: LEVOTHYROXINE 100 MCG TABLET PO SCH (05:34)
[2019-04-17 06:15] VITALS: BP 106/65
[2019-04-17 07:38] VITALS: BP 122/74
[2019-04-17] MEDS: POLYETHYLENE GLYCOL 3350 17 GM PACKET. PO SCH (08:00)
[2019-04-17] MEDS: MAGNESIUM CHLORIDE ER 64 MG TABLET.ER PO SCH (09:16)
[2019-04-17 09:17] VITALS: BP 122/74
[2019-04-17] MEDS: FUROSEMIDE 40 MG TABLET PO SCH (09:17)
[2019-04-17] MEDS: FERROUS SULFATE 325 MG TABLET. PO SCH (09:17)
[2019-04-17] MEDS: POTASSIUM CHLORIDE 10 MEQ TABLET.ER. PO SCH (09:17)
[2019-04-17] MEDS: MULTIVITAMIN with MINERAL TABLET. PO SCH (09:17)
[2019-04-17] MEDS: PANTOPRAZOLE 40 MG TABLET. PO SCH (09:17)
[2019-04-17] MEDS: METOPROLOL TART IMMED RELEASE 25 MG TABLET PO SCH (09:17)
[2019-04-17] MEDS: ASPIRIN 81 MG TAB.CHEW PO SCH (09:17)
[2019-04-17] MEDS ORDERED: LEVO100T PO (10:54)
--- NOTE | 2019-04-17 14:55 | DS ---
DATE OF DISCHARGE: 04/17/2019 HOSPITAL COURSE: The patient discharged from the swing bed unit. The patient initially had been there as a result of generalized weakness. She had been transferred from [place] up here as a result of GI bleed. Apparently, they were not able to find any particular bleeding on her. She was placed on the skilled unit for rehabilitation, PT, OT. The patient's labs look basically stable; hemoglobin and hematocrit of 9 and 28. The patient's chemistries were checked and her blood sugar, were doing fine there. In any case, the patient made excellent progress during the rest of her hospitalization. The patient did have a swelling to her arm and looked like a thrombosed superficial vein. In any case, the patient made excellent progress during the rest of her hospitalization. She was discharged home. IMPRESSION: Skilled Unit for acute GI bleed, general weakness, anemia from probable bleed as well as a peripheral superficial thrombophlebitis. She will be on a heart healthy diet, decreased activity, and followup accordingly. MARTINEZ MONTOYA MD DR: LILI/kimberly JOB#: [id number] / [id number]
== END 2019-04-17 11:59 | disposition home or self-care (01) | DRG 378 ==
LOC: LND 15:40
PROVIDERS: ADMIT Family Medicine; ATTEND Family Medicine
DX: K92.2 Gastrointestinal hemorrhage, unspecified (principal); D62 Acute posthemorrhagic anemia; F03.90 Unspecified dementia, unspecified severity, without behavioral disturbance, psychotic disturbance, mood disturbance, and anxiety; G47.30 Sleep apnea, unspecified; I80.9 Phlebitis and thrombophlebitis of unspecified site; E66.9 Obesity, unspecified; Z68.37 Body mass index [BMI] 37.0-37.9, adult; Z90.49 Acquired absence of other specified parts of digestive tract; Z90.710 Acquired absence of both cervix and uterus; Z96.652 Presence of left artificial knee joint
CPT/HCPCS: 36415; 76882; 82947; 85025; 97110; 97112; 97116; 97150; 97530; 97535

== ENCOUNTER 2019-04-20 09:21 | Inpatient (IN) | payer MEDICARE, OTHER ==
[~2019-04-20] VITALS: Ht 165.1 cm; Wt 95.3 kg
[~2019-04-20 09:21] MED LIST changes: +ASPI-630 PO; +FERR325T14 PO; +LEVO100T PO; +METO25TA4 PO; +METO50TA29 PO; +OMEP20CA10 PO; -OMEP20CA9 PO; +POLY17PO5 PO
[2019-04-20] MEDS: POLYETHYLENE GLYCOL 3350 17 GM PACKET. PO SCH (10:00)
[2019-04-20 10:25] LABS: BASO # 0.1 x10^3/uL (0.0-0.2); BASO % 1 % (0-3); EOS # 0.1 x10^3/uL (0.0-0.7); EOS % 2 % (0-3); HEMATOCRIT 34.8 % (36.0-47.0); HEMOGLOBIN 10.9 g/dL (12.0-15.5); LYMPH # 0.7 x10^3/uL (1.0-4.8); LYMPH % 15 % (24-48); MEAN CORPUSCULAR HEMOGLOBIN 28 pg (25-35); MEAN CORPUSCULAR HGB CONC 31 g/dL (31-37); MEAN CORPUSCULAR VOLUME 91 fL (79-100); MONO # 0.3 x10^3/uL (0.0-1.1); MONO % 7 % (0-9); NEUT # 3.7 x10^3uL (1.8-7.7); NEUT % 75 % (31-73); PLATELET COUNT 211 x10^3/uL (140-400); RED BLOOD COUNT 3.83 x10^6/uL (3.50-5.40); RED CELL DISTRIBUTION WIDTH 21.2 % (11.5-14.5)
[2019-04-20 10:44] VITALS: BP 107/56
[2019-04-20 10:51] LABS: ALBUMIN 2.9 g/dL (3.4-5.0); ALBUMIN/GLOBULIN RATIO 0.8 (1.0-1.7); CALCIUM 9.2 mg/dL (8.5-10.1); CREATININE 1.6 mg/dL (0.6-1.0); GFR 30.5; POTASSIUM 3.7 mmol/L (3.5-5.1); TOTAL BILIRUBIN 1.2 mg/dL (0.2-1.0); TOTAL PROTEIN 6.5 g/dL (6.4-8.2)
[2019-04-20 11:45] LABS: PLT ESTIMATE ADEQUATE (ADEQUATE); POLYCHROMASIA MOD
[2019-04-20 11:46] LABS: ANISOCYTOSIS MOD; TEAR DROP CELLS OCC
[2019-04-20 11:47] LABS: OVALOCYTES OCC
[2019-04-20 11:48] LABS: MICROCYTOSIS SLIGHT
[2019-04-20] MEDS: POTASSIUM CHLORIDE 10 MEQ TABLET.ER. PO SCH ×2 (12:01→20:57)
[2019-04-20] MEDS: PANTOPRAZOLE 40 MG TABLET. PO SCH (12:01)
[2019-04-20] MEDS: MAGNESIUM CHLORIDE ER 64 MG TABLET.ER PO SCH (12:01)
[2019-04-20] MEDS: ASPIRIN 81 MG TAB.CHEW PO SCH (12:02)
[2019-04-20] MEDS: METOPROLOL TART IMMED RELEASE 25 MG TABLET PO SCH ×2 (12:02→20:58)
--- NOTE | 2019-04-20 12:10 | RAD ---
Chest, 2 views, 04/20/2019: HISTORY: Shortness of breath, elevated d-dimer Comparison is made to a study from 04/03/2019. There is extensive calcification of the mitral annulus. There is moderate calcific plaquing of the aorta. The heart is within normal limits in size. The upper lung harrison are clear. There is mild streaky atelectasis or scarring the left base. There is blunting of the costophrenic angles suggesting a tiny amount of bilateral pleural fluid. IMPRESSION: Tiny pleural effusions with mild left basilar atelectasis. Electronically signed by: Milton Barragan MD (04/20/2019 12:07 PM) [facility]
[2019-04-20] MEDS: FERROUS SULFATE 325 MG TABLET. PO SCH (13:32)
[2019-04-20] MEDS: FUROSEMIDE 40 MG/4 ML VIAL IVP SCH (13:33)
--- NOTE | 2019-04-20 15:08 | RAD ---
Ventilation/perfusion lung scan, 04/20/2019: HISTORY: Elevated d-dimer The ventilation study was performed utilizing 9 mCi of xenon-133. Activity in both lungs is heterogeneous. There is fairly good washout of the xenon from the lungs. Perfusion imaging was performed utilizing 5.5 mCi of technetium 99m MAA. A similar pattern of activity is present in the lungs. No significant unmatched or segmental perfusion defects are seen. IMPRESSION: The probability of pulmonary emboli is considered to be low. Electronically signed by: Milton Barragan MD (04/20/2019 3:05 PM) [facility]
--- NOTE | 2019-04-20 15:09 | PDOC2 ---
CONSULT Date of Admission DATE: 04/20/19 TIME: 15:09 Reason for Consult: CHF Referring Physician: Dr. Martinez Chief Complaint Edema Source: Caregiver, Chart review, Patient History of Present Illness 88 y/o female with history of atrial fibrillation was recently treated for GI bleeding at [facility] and sent to swing bed here at [facility] and DC'd home few days ago. He was seen at PCP's office today and was found to have edema and elevated BNP consistent with CHF and admitted for further management. She complained of generalized weakness and dyspnea on exertion but denied any chest pain, orthopnea, palpitations or syncope. She has history of atrial fibrillation and was previously on anticoagulation with coumadin followed by xarelto that was stopped after recent GIB that was thought to be from ?AVM's. Past Medical History HTN HLP Atrial fibrillation Chr diastolic HF GI bleeding Hypothyroidism Past Surgical History: Cholecystectomy, Hysterectomy Family History Not contributory Smoke: No ALCOHOL: none Drugs: None Current Medications Current Medications Atorvastatin Calcium (Lipitor) 20 mg HS PO ; Start 04/20/19 at 21:00 Ferrous Sulfate (Feosol) 325 mg BID92 PO Last administered on 04/20/19at 13:32; Start 04/20/19 at 14:00 Levothyroxine Sodium (Synthroid) 100 mcg DAILY06 PO ; Start 04/21/19 at 06:00 Metoprolol Tartrate (Lopressor) 25 mg BID PO Last administered on 04/20/19at 12:02; Start 04/20/19 at 10:00 Aspirin (Children'S Aspirin) 81 mg DAILYWBKFT PO Last administered on 04/20/19at 12:02; Start 04/20/19 at 10:00 Gabapentin (Neurontin) 600 mg QHS PO ; Start 04/20/19 at 21:00 Magnesium Chloride (Mag Delay) 64 mg DAILY PO Last administered on 04/20/19at 12:01; Start 04/20/19 at 10:00 Multivitamins/ Calcium (Thera-M Plus) 1 tab DAILY PO ; Start 04/21/19 at 09:00 Pantoprazole Sodium (Protonix) 40 mg DAILYAC PO Last administered on 04/20/19at 12:01; Start 04/20/19 at 10:00 Polyethylene Glycol (miraLAX) 17 gm DAILY08 PO ; Start 04/20/19 at 10:00 Potassium Chloride (Klor-Con) 10 meq BID PO Last administered on 04/20/19at 12:01; Start 04/20/19 at 10:00 Furosemide (Lasix) 40 mg DAILY IVP ; Start 04/21/19 at 09:00; Stop 04/21/19 at 09:00; Status DC Furosemide (Lasix) 40 mg DAILY IVP Last administered on 04/20/19at 13:33; Start 04/20/19 at 12:00 Active Scripts Active Synthroid (Levothyroxine Sodium) 100 Mcg Tablet 100 Mcg PO DAILY06 30 Days Reported Metoprolol Tartrate 25 Mg Tablet 1 Tab PO BID Ferrous Sulfate 325 Mg Tablet 1 Tab PO BID92 Miralax (Polyethylene Glycol 3350) 17 Gm Powd.pack 1 Packet PO DAILY08 Aspirin 81 Mg Tab.chew 81 Mg PO DAILY08 Multivitamins (Multivitamin) 1 Each Tablet 1 Tab PO DAILY Mag64 (Magnesium Chloride) 64 Mg Tablet.er 64 Mg PO DAILY Protonix (Pantoprazole Sodium) 40 Mg Tablet.dr 1 Tab PO DAILY Lasix (Furosemide) 40 Mg Tablet 1 Tab PO DAILY Atorvastatin Calcium 20 Mg Tablet 20 Mg PO HS Potassium Chloride 10 Meq Tablet.er 10 Meq PO BID Gabapentin 600 Mg Tablet 600 Mg PO HS Allergies: Coded Allergies: Sulfa (Sulfonamide Antibiotics) (Verified Allergy, Intermediate, Rash, 04/20/19) PSYCHOLOGICAL ROS: No: Hallucinations Eyes: No: Loss of vision HEENT: No: Epistaxis Respiratory: YES: Shortness of breath; No: Hemoptysis Cardiovascular: No: Chest Pain Gastrointestinal: No: Vomiting, Diarrhea Genitourinary: No: Henaturia Neurological: No: Seizures Skin: No: Rash General: Alert, Oriented X3 HEENT: Atraumatic, PERRLA Lungs: Other (scattered crepts) Heart: Other (HR irregular) Abdomen: Soft, No tenderness Extremities: Other (2+ pitting edema) Psych/Mental Status: Mood NL VITALS Vital Signs Date Time Temp Pulse Resp B/P (MAP) Pulse Ox O2 Delivery O2 Flow Rate FiO2 04/20/19 12:02 70 107/56 04/20/19 10:44 98.3 18 98 Room Air Labs Laboratory Tests Test 04/20/19 10:08 White Blood Count 5.0 x10^3/uL (4.0-11.0) Red Blood Count 3.83 x10^6/uL (3.50-5.40) Hemoglobin 10.9 g/dL (12.0-15.5) Hematocrit 34.8 % (36.0-47.0) Mean Corpuscular Volume 91 fL (79-100) Mean Corpuscular Hemoglobin 28 pg (25-35) Mean Corpuscular Hemoglobin Concent 31 g/dL (31-37) Red Cell Distribution Width 21.2 % (11.5-14.5) Platelet Count 211 x10^3/uL (140-400) Neutrophils (%) (Auto) 75 % (31-73) Lymphocytes (%) (Auto) 15 % (24-48) Monocytes (%) (Auto) 7 % (0-9) Eosinophils (%) (Auto) 2 % (0-3) Basophils (%) (Auto) 1 % (0-3) Neutrophils # (Auto) 3.7 x10^3uL (1.8-7.7) Lymphocytes # (Auto) 0.7 x10^3/uL (1.0-4.8) Monocytes # (Auto) 0.3 x10^3/uL (0.0-1.1) Eosinophils # (Auto) 0.1 x10^3/uL (0.0-0.7) Basophils # (Auto) 0.1 x10^3/uL (0.0-0.2) Platelet Estimate Adequate (ADEQUATE) Polychromasia Mod Anisocytosis Mod Microcytosis Slight Tear Drop Cells Occ Ovalocytes Occ D-Dimer (Kayleigh) 2.48 mg/L (0.00-0.50) Sodium Level 143 mmol/L (136-145) Potassium Level 3.7 mmol/L (3.5-5.1) Chloride Level 107 mmol/L (98-107) Carbon Dioxide Level 26 mmol/L (21-32) Anion Gap 10 (6-14) Blood Urea Nitrogen 19 mg/dL (7-20) Creatinine 1.6 mg/dL (0.6-1.0) Estimated GFR (Cockcroft-Gault) 30.5 BUN/Creatinine Ratio 12 (6-20) Glucose Level 91 mg/dL (70-99) Calcium Level 9.2 mg/dL (8.5-10.1) Total Bilirubin 1.2 mg/dL (0.2-1.0) Aspartate Amino Transf (AST/SGOT) 37 U/L (15-37) Alanine Aminotransferase (ALT/SGPT) 28 U/L (14-59) Alkaline Phosphatase 112 U/L (46-116) Creatine Kinase 40 U/L (26-192) Troponin I Quantitative < 0.017 ng/mL (0-0.055) RR-Zjw-G-Type Natriuretic Peptide 93104 pg/mL (0-449) Total Protein 6.5 g/dL (6.4-8.2) Albumin 2.9 g/dL (3.4-5.0) Albumin/Globulin Ratio 0.8 (1.0-1.7) Assessment/Plan 1. Acute on chronic diastolic heart failure: Continue diuresis with Lasix. Recent 2D echo 01/2019 showed normal LV function with EF 55%. 2. Atrial fibrillation, permanent: rate controlled. She is poor candidate for penitentiary anticoagulation due to recent GI bleed 3. HTN: controlled 4. HLP: statins 5. Hypothyrodism: on levothyroxine Thank you for your consultation JOBY PONCE MD Apr 20, 2019 15:09
[2019-04-20 15:19] VITALS: BP 119/74
--- NOTE | 2019-04-20 18:01 | EKG ---
[address] [address] Test Date: 2019-04-20 Test Time: 17:13:36 Pat Name: MARK ABDULLAHI Department: Room: [facility]04 1 Gender: F Education Managers: : 1930 Requested By: MARTINEZ MONTOYA Order Number: [id number] Reading MD: Measurements Intervals [place] Rate: 64 P: PA: QRS: 55 QRSD: 80 T: 45 QT: 434 QTc: 452 Interpretive Statements IRREGULAR RHYTHM, NO P-WAVE FOUND LOW LIMB LEAD VOLTAGE NO SPECIFIC ECG ABNORMALITIES RI6.02 No previous ECG available for comparison
[2019-04-20 19:21] VITALS: BP 123/70
[2019-04-20 19:47] VITALS: BP 117/56
[2019-04-20] MEDS: GABAPENTIN 300 MG CAPSULE. PO SCH (20:57)
[2019-04-20] MEDS: ATORVASTATIN CALCIUM 20 MG TABLET PO SCH (20:57)
[2019-04-20 23:50] VITALS: BP 135/64
[2019-04-21] MEDS: LEVOTHYROXINE 100 MCG TABLET PO SCH (06:06)
[2019-04-21 06:32] LABS: CALCIUM 8.7 mg/dL (8.5-10.1); CREATININE 1.6 mg/dL (0.6-1.0); GFR 30.5; POTASSIUM 3.2 mmol/L (3.5-5.1)
[2019-04-21 06:36] LABS: BASO % 1 % (0-3); EOS # 0.2 x10^3/uL (0.0-0.7); EOS % 4 % (0-3); HEMATOCRIT 31.6 % (36.0-47.0); LYMPH % 20 % (24-48); MEAN CORPUSCULAR HEMOGLOBIN 29 pg (25-35); MEAN CORPUSCULAR HGB CONC 32 g/dL (31-37); MEAN CORPUSCULAR VOLUME 90 fL (79-100); MONO # 0.4 x10^3/uL (0.0-1.1); MONO % 7 % (0-9); NEUT # 3.7 x10^3uL (1.8-7.7); NEUT % 69 % (31-73); PLATELET COUNT 183 x10^3/uL (140-400); RED BLOOD COUNT 3.51 x10^6/uL (3.50-5.40); RED CELL DISTRIBUTION WIDTH 20.9 % (11.5-14.5); WHITE BLOOD COUNT 5.3 x10^3/uL (4.0-11.0)
[2019-04-21 08:00] VITALS: BP 133/74
[2019-04-21] MEDS: POLYETHYLENE GLYCOL 3350 17 GM PACKET. PO SCH (08:00)
[2019-04-21] MEDS: POTASSIUM CHLORIDE 10 MEQ TABLET.ER. PO SCH ×2 (08:15→20:44)
[2019-04-21] MEDS: MAGNESIUM CHLORIDE ER 64 MG TABLET.ER PO SCH (08:15)
[2019-04-21] MEDS: MULTIVITAMIN with MINERAL TABLET. PO SCH (08:16)
[2019-04-21] MEDS: METOPROLOL TART IMMED RELEASE 25 MG TABLET PO SCH ×2 (08:16→20:45)
[2019-04-21] MEDS: PANTOPRAZOLE 40 MG TABLET. PO SCH (08:17)
[2019-04-21] MEDS: ASPIRIN 81 MG TAB.CHEW PO SCH (08:17)
[2019-04-21] MEDS: FUROSEMIDE 40 MG/4 ML VIAL IVP SCH (08:18)
[2019-04-21] MEDS: FERROUS SULFATE 325 MG TABLET. PO SCH ×2 (08:24→12:26)
[2019-04-21] MEDS ORDERED: FUROSEMIDE 40 MG/4 ML VIAL IVP SCH (09:00)
[2019-04-21 11:55] VITALS: BP 100/63
[2019-04-21 13:49] VITALS: BP 124/65
[2019-04-21 19:29] VITALS: BP 141/74
--- NOTE | 2019-04-21 20:17 | PN ---
DATE: SUBJECTIVE: An 88-year-old female was admitted yesterday with congestive heart failure. She is feeling better. She has diuresed very nicely. OBJECTIVE: VITAL SIGNS: Blood pressure 133/70, respiratory rate 20, pulse 70, afebrile. GENERAL: The patient in the room in ICU bed for a long and her daughter was in the room, discussed and answered questions there. The patient otherwise is alert and oriented. LUNGS: Diminished, but clear than they have been. CARDIOVASCULAR: Stable. ABDOMEN: Soft, nontender, protuberant. EXTREMITIES: No clubbing, cyanosis, +3-4 edema, still markedly swollen, getting IV Lasix. The patient's V/Q scan showed low probability. We will go ahead and continue to monitor the patient. IMPRESSION: Acute on top of chronic diastolic heart failure, tiny pleural effusions with mild basilar atelectasis, anemia of chronic disease, hypokalemia. MARTINEZ MONTOYA MD DR: LILI/kimberly JOB#: [id number] / [id number]
[2019-04-21] MEDS: GABAPENTIN 300 MG CAPSULE. PO SCH (20:44)
[2019-04-21] MEDS: ATORVASTATIN CALCIUM 20 MG TABLET PO SCH (20:45)
[2019-04-21 23:05] VITALS: BP 109/58
[2019-04-22] MEDS: LEVOTHYROXINE 100 MCG TABLET PO SCH (05:57)
[2019-04-22 06:17] LABS: BASO % 1 % (0-3); EOS # 0.2 x10^3/uL (0.0-0.7); EOS % 5 % (0-3); HEMOGLOBIN 10.2 g/dL (12.0-15.5); LYMPH % 21 % (24-48); MEAN CORPUSCULAR HEMOGLOBIN 29 pg (25-35); MEAN CORPUSCULAR HGB CONC 31 g/dL (31-37); MEAN CORPUSCULAR VOLUME 93 fL (79-100); MONO # 0.4 x10^3/uL (0.0-1.1); MONO % 9 % (0-9); NEUT # 3.2 x10^3uL (1.8-7.7); NEUT % 65 % (31-73); PLATELET COUNT 166 x10^3/uL (140-400); RED BLOOD COUNT 3.55 x10^6/uL (3.50-5.40)
[2019-04-22 06:24] LABS: CALCIUM 8.4 mg/dL (8.5-10.1); CREATININE 1.6 mg/dL (0.6-1.0); GFR 30.5; POTASSIUM 3.4 mmol/L (3.5-5.1)
[2019-04-22 07:16] VITALS: BP 122/62
[2019-04-22] MEDS: FERROUS SULFATE 325 MG TABLET. PO SCH ×2 (07:52→12:15)
[2019-04-22] MEDS: POTASSIUM CHLORIDE 10 MEQ TABLET.ER. PO SCH ×2 (07:52→21:09)
[2019-04-22] MEDS: MULTIVITAMIN with MINERAL TABLET. PO SCH (07:52)
[2019-04-22] MEDS: MAGNESIUM CHLORIDE ER 64 MG TABLET.ER PO SCH (07:53)
[2019-04-22] MEDS: POLYETHYLENE GLYCOL 3350 17 GM PACKET. PO SCH (07:53)
[2019-04-22] MEDS: PANTOPRAZOLE 40 MG TABLET. PO SCH (07:53)
[2019-04-22] MEDS: ASPIRIN 81 MG TAB.CHEW PO SCH (07:53)
[2019-04-22] MEDS: METOPROLOL TART IMMED RELEASE 25 MG TABLET PO SCH ×2 (07:53→21:09)
[2019-04-22] MEDS: FUROSEMIDE 40 MG/4 ML VIAL IVP SCH ×2 (07:54→16:45)
[2019-04-22 10:28] VITALS: BP 110/63
--- NOTE | 2019-04-22 15:43 | PDOC ---
PROVIDER NOTE PROVIDER NOTE PROVIDER NOTE S: No acute events overnight. Diuretics increased today. O: VSS: HR 90's 2+ pitting edema to the lower thigh Normal lung sounds. Irregular heart tones. A/ox 3. NAD Labs reviewed. hgb stable Meds reviewed: Impression: 1. Acute on chronic diastolic HF 2. Permanent afib 3. hx of anemia and GIB> Plan: 1. Agree with increase in diuretics. She has CKD and will need close monitoring of renal function. 2. May need to add metolazone. Thanks. MERARY ADAMSON MD Apr 22, 2019 15:43
[2019-04-22 17:34] VITALS: BP 145/80
[2019-04-22] MEDS: NYSTATIN TOPICAL POWDER 15GM BOTTLE. TP SCH (21:00)
[2019-04-22] MEDS: GABAPENTIN 300 MG CAPSULE. PO SCH (21:08)
[2019-04-22] MEDS: ATORVASTATIN CALCIUM 20 MG TABLET PO SCH (21:09)
[2019-04-23 01:37] VITALS: BP 101/62
--- NOTE | 2019-04-23 02:27 | PN ---
DATE: SUBJECTIVE: The patient with congestive heart failure. The patient is still fairly weak, still receiving IV Lasix. OBJECTIVE: VITAL SIGNS: Blood pressure 110/63, respiratory rate 26 and pulse 70. She is afebrile. ____ still needs to be obtained for today. GENERAL: The patient is alert and oriented. LUNGS: Diminished throughout, but clear. CARDIOVASCULAR: Stable. ABDOMEN: Soft and protuberant. EXTREMITIES: No clubbing, cyanosis, +1 to 2 pitting edema, some improvement there. Continue on IV Lasix. IMPRESSION: Acute on top of chronic diastolic heart failure, anemia of chronic disease, mild dementia, pleural effusion and hypokalemia, corrected. MARTINEZ MONTOYA MD DR: LILI/kimberly JOB#: [id number] / [id number]
[2019-04-23] MEDS: LEVOTHYROXINE 100 MCG TABLET PO SCH (05:54)
[2019-04-23 06:18] VITALS: BP 106/72
[2019-04-23 07:00] LABS: BASO % 0 % (0-3); EOS # 0.2 x10^3/uL (0.0-0.7); EOS % 3 % (0-3); HEMATOCRIT 32.8 % (36.0-47.0); HEMOGLOBIN 10.4 g/dL (12.0-15.5); LYMPH # 0.9 x10^3/uL (1.0-4.8); LYMPH % 19 % (24-48); MEAN CORPUSCULAR HEMOGLOBIN 29 pg (25-35); MEAN CORPUSCULAR HGB CONC 32 g/dL (31-37); MEAN CORPUSCULAR VOLUME 90 fL (79-100); MONO # 0.4 x10^3/uL (0.0-1.1); MONO % 9 % (0-9); NEUT # 3.2 x10^3uL (1.8-7.7); NEUT % 68 % (31-73); PLATELET COUNT 171 x10^3/uL (140-400); RED BLOOD COUNT 3.64 x10^6/uL (3.50-5.40); RED CELL DISTRIBUTION WIDTH 20.5 % (11.5-14.5); WHITE BLOOD COUNT 4.7 x10^3/uL (4.0-11.0)
[2019-04-23 07:19] LABS: CALCIUM 8.5 mg/dL (8.5-10.1); CREATININE 1.6 mg/dL (0.6-1.0); GFR 30.5; POTASSIUM 3.1 mmol/L (3.5-5.1)
[2019-04-23] MEDS: POLYETHYLENE GLYCOL 3350 17 GM PACKET. PO SCH (08:00)
[2019-04-23] MEDS ORDERED: metOLazone 2.5 MG TABLET PO SCH (08:30)
--- NOTE | 2019-04-23 08:51 | PN ---
DATE: SUBJECTIVE: The patient in with congestive heart failure. Doing a little better. Still has a lot of swelling to her legs. Some venous stasis, otherwise doing somewhat better. OBJECTIVE: VITAL SIGNS: Blood pressure 110/70, respiration 18, pulse 80, and afebrile. GENERAL: The patient is alert and oriented. LUNGS: Diminished, but clear. CARDIOVASCULAR: Irregularly irregular rhythm. ABDOMEN: Protuberant and soft. EXTREMITIES: +2 pitting edema with marked erythema consistent with stasis. IMPRESSION: Acute on top of chronic diastolic heart failure, venous stasis. PLAN: As above. Continue to monitor the patient accordingly, diuresed, hopefully ready for some type of skilled unit or possibly rehab. MARTINEZ MONTOYA MD DR: LILI/kimberly JOB#: [id number] / [id number]
[2019-04-23] MEDS: FERROUS SULFATE 325 MG TABLET. PO SCH ×2 (08:59→13:42)
[2019-04-23] MEDS: ASPIRIN 81 MG TAB.CHEW PO SCH (08:59)
[2019-04-23] MEDS: POTASSIUM CHLORIDE 10 MEQ TABLET.ER. PO SCH (08:59)
[2019-04-23] MEDS: MAGNESIUM CHLORIDE ER 64 MG TABLET.ER PO SCH (08:59)
[2019-04-23] MEDS: MULTIVITAMIN with MINERAL TABLET. PO SCH (08:59)
[2019-04-23] MEDS: FUROSEMIDE 40 MG/4 ML VIAL IVP SCH ×2 (08:59→17:04)
[2019-04-23] MEDS: METOPROLOL TART IMMED RELEASE 25 MG TABLET PO SCH (08:59)
[2019-04-23] MEDS ORDERED: TRIAMCINOLONE ACETONIDE 0.1% TOPICAL CREAM 15GM TUBE. TP SCH (09:00)
[2019-04-23] MEDS: NYSTATIN TOPICAL POWDER 15GM BOTTLE. TP SCH (09:00)
[2019-04-23] MEDS: PANTOPRAZOLE 40 MG TABLET. PO SCH (09:01)
--- NOTE | 2019-04-23 10:09 | PDOC ---
CARDIO Progress Notes Date & Time Date of Service DATE: 04/23/19 TIME: 10:05 Time of Evaluation 10:05 Subjective Notes Breathing about the same. Lower extremity edema persists. Vitals Vitals Vital Signs Date Time Temp Pulse Resp B/P (MAP) Pulse Ox O2 Delivery O2 Flow Rate FiO2 04/23/19 08:59 83 106/72 04/23/19 06:18 97.7 18 94 04/22/19 19:05 Room Air 04/22/19 10:28 1.5 Weight Weight [ ] Input and Output I.O. Intake and Output 04/23/19 07:00 Intake Total 630 ml Output Total 700 ml Balance -70 ml Intake Oral 630 ml Output Urine Total 700 ml # Voids 6 # Bowel Movements 1 Laboratory Labs Laboratory Tests Test 04/22/19 05:52 04/23/19 06:35 White Blood Count 5.0 x10^3/uL (4.0-11.0) 4.7 x10^3/uL (4.0-11.0) Red Blood Count 3.55 x10^6/uL (3.50-5.40) 3.64 x10^6/uL (3.50-5.40) Hemoglobin 10.2 g/dL (12.0-15.5) 10.4 g/dL (12.0-15.5) Hematocrit 33.0 % (36.0-47.0) 32.8 % (36.0-47.0) Mean Corpuscular Volume 93 fL (79-100) 90 fL (79-100) Mean Corpuscular Hemoglobin 29 pg (25-35) 29 pg (25-35) Mean Corpuscular Hemoglobin Concent 31 g/dL (31-37) 32 g/dL (31-37) Red Cell Distribution Width 21.0 % (11.5-14.5) 20.5 % (11.5-14.5) Platelet Count 166 x10^3/uL (140-400) 171 x10^3/uL (140-400) Neutrophils (%) (Auto) 65 % (31-73) 68 % (31-73) Lymphocytes (%) (Auto) 21 % (24-48) 19 % (24-48) Monocytes (%) (Auto) 9 % (0-9) 9 % (0-9) Eosinophils (%) (Auto) 5 % (0-3) 3 % (0-3) Basophils (%) (Auto) 1 % (0-3) 0 % (0-3) Neutrophils # (Auto) 3.2 x10^3uL (1.8-7.7) 3.2 x10^3uL (1.8-7.7) Lymphocytes # (Auto) 1.0 x10^3/uL (1.0-4.8) 0.9 x10^3/uL (1.0-4.8) Monocytes # (Auto) 0.4 x10^3/uL (0.0-1.1) 0.4 x10^3/uL (0.0-1.1) Eosinophils # (Auto) 0.2 x10^3/uL (0.0-0.7) 0.2 x10^3/uL (0.0-0.7) Basophils # (Auto) 0.0 x10^3/uL (0.0-0.2) 0.0 x10^3/uL (0.0-0.2) Sodium Level 142 mmol/L (136-145) 143 mmol/L (136-145) Potassium Level 3.4 mmol/L (3.5-5.1) 3.1 mmol/L (3.5-5.1) Chloride Level 106 mmol/L (98-107) 105 mmol/L (98-107) Carbon Dioxide Level 27 mmol/L (21-32) 31 mmol/L (21-32) Anion Gap 9 (6-14) 7 (6-14) Blood Urea Nitrogen 16 mg/dL (7-20) 16 mg/dL (7-20) Creatinine 1.6 mg/dL (0.6-1.0) 1.6 mg/dL (0.6-1.0) Estimated GFR (Cockcroft-Gault) 30.5 30.5 Glucose Level 90 mg/dL (70-99) 86 mg/dL (70-99) Calcium Level 8.4 mg/dL (8.5-10.1) 8.5 mg/dL (8.5-10.1) DV-Vhb-S-Type Natriuretic Peptide 19710 pg/mL (0-449) Physical Exams HEENT: Neck Supple W Full Motion Chest: Symmetric Lungs: Clear to Auscultation Heart: S1S2, irregularly irregular (AFIB with controlled rate) Abdomen: Soft N/T Extremities: Other (2+ bilateral LE pitting edema ) Neurology: alert, oriented, follow commands Assessment Assessment 1. Acute on chronic diastolic heart failure; LV function preserved from Echo 01/2019 with EF of 55%. 2. Atrial fibrillation, permanent: rate controlled with metoprolol. Poor candidate for OAC due to recent GIB. On ASA for stroke prophylaxis 3. Hypertension; controlled 4. Hyperlipidemia; stain 5. CKD; Cr stable. 6. Hypokalemia 7. Anemia with recent GIB Recommendations Needs further diuresis. Agree with adding metolazone Continue Lasix. Monitor renal function Compression stocking. Elevated LE Replace K. Check Mg and replace as warranted. Supportive care SHARI BLAKE APRN Apr 23, 2019 10:09
[2019-04-23 10:56] VITALS: BP 122/74
[2019-04-23] MEDS ORDERED: MAGNESIUM SULFATE 2GM 50 ML IV ONE (11:00)
[2019-04-23] MEDS ORDERED: POTASSIUM CHLORIDE 20 MEQ TABLET.ER. PO ONE (11:00)
[2019-04-23 14:47] VITALS: BP 126/79
[2019-04-23] MEDS ORDERED: TRIA15CR50 TP (19:11)
[2019-04-23] MEDS ORDERED: METO2.5T PO (19:11)
[2019-04-23] MEDS ORDERED: NYST15PO9 TP (19:11)
== END 2019-04-23 17:50 | DRG 291 ==
LOC: ICU 09:21 → 1 SOUTH 04-22 19:15
PROVIDERS: ADMIT Family Medicine; ATTEND Family Medicine
DX: I13.0 Hypertensive heart and chronic kidney disease with heart failure and stage 1 through stage 4 chronic kidney disease, or unspecified chronic kidney disease (principal); I50.33 Acute on chronic diastolic (congestive) heart failure; J90 Pleural effusion, not elsewhere classified; J98.11 Atelectasis; I48.2 Chronic atrial fibrillation; D63.8 Anemia in other chronic diseases classified elsewhere; E03.9 Hypothyroidism, unspecified; E66.9 Obesity, unspecified; E78.5 Hyperlipidemia, unspecified; E87.6 Hypokalemia; I87.8 Other specified disorders of veins; Z96.652 Presence of left artificial knee joint; F03.90 Unspecified dementia, unspecified severity, without behavioral disturbance, psychotic disturbance, mood disturbance, and anxiety; N18.9 Chronic kidney disease, unspecified; Z79.01 Long term (current) use of anticoagulants; Z90.710 Acquired absence of both cervix and uterus; Z88.2 Allergy status to sulfonamides; Z79.899 Other long term (current) drug therapy; Z90.49 Acquired absence of other specified parts of digestive tract; Z68.34 Body mass index [BMI] 34.0-34.9, adult; Z98.51 Tubal ligation status; Z82.49 Family history of ischemic heart disease and other diseases of the circulatory system; Z88.8 Allergy status to other drugs, medicaments and biological substances
CPT/HCPCS: 36415; 71046; 78582; 80048; 80053; 82550; 83735; 83880; 84484; 85025; 85379; 87641; 93005; 96374; A9540; A9558; J1940; J3475

== ENCOUNTER 2019-04-23 16:28 | Inpatient (IN) | payer MEDICARE, OTHER ==
[~2019-04-23] VITALS: Ht 165.1 cm; Wt 93.0 kg
[2019-04-23 18:23] VITALS: BP 126/59
[2019-04-23] MEDS ORDERED: METO2.5T PO (19:11)
[2019-04-23] MEDS ORDERED: NYST15PO9 TP (19:11)
[2019-04-23] MEDS ORDERED: TRIA15CR50 TP (19:11)
[2019-04-23] MEDS: POTASSIUM CHLORIDE 10 MEQ TABLET.ER. PO SCH (20:40)
[2019-04-23] MEDS: GABAPENTIN 300 MG CAPSULE. PO SCH (20:41)
[2019-04-23] MEDS: METOPROLOL TART IMMED RELEASE 25 MG TABLET PO SCH (20:41)
[2019-04-23] MEDS: TRIAMCINOLONE ACETONIDE 0.1% TOPICAL CREAM 15GM TUBE. TP SCH (20:41)
[2019-04-23] MEDS: ATORVASTATIN CALCIUM 20 MG TABLET PO SCH (20:42)
[2019-04-23] MEDS: NYSTATIN TOPICAL POWDER 15GM BOTTLE. TP SCH (21:00)
--- NOTE | 2019-04-23 21:00 | NUR ---
Swing Bed Admission: Patient Handbook for Snf given to patient. Nursing Problem: CHF, weakness Cognitive/Behavioral: Alert and oriented x 4, forgetful at times. Very pleasant and cooperative with staff. Pain: Denies any pain at this time. Respiratory Status: Lungs are clear, but diminished. Patient is on room air. Skin: Maceration noted to groin, cleansed and nystatin applied. Photos placed in the chart. Bowel/Bladder Continence: Continent of bowel and bladder, some stress incontinence noted. LBM 04/23 ADL Functional Status: Moderate assist x 1 with walker in ambulation. Moderate assist with bathing and dressing. Able to done other ADLs with minimal assistance/supervision. Fall(s) prior to admission? Patient denies any falls prior to admission Admitted from [address] [place] [address].
[2019-04-24] MEDS: LEVOTHYROXINE 100 MCG TABLET PO SCH (06:00)
[2019-04-24 06:15] VITALS: BP 129/75
[2019-04-24 06:28] LABS: CALCIUM 9.1 mg/dL (8.5-10.1); CREATININE 1.5 mg/dL (0.6-1.0); GFR 32.8; MAGNESIUM 1.6 mg/dL (1.8-2.4); POTASSIUM 3.4 mmol/L (3.5-5.1)
--- NOTE | 2019-04-24 07:00 | NUR ---
Swing Bed Admission: Patient Handbook for Retirement given to patient. Nursing Problem: CHF Cognitive/Behavioral: Alert and oriented x 4, forgetful at times. Very pleasant and cooperative with staff. Pain: Denies any pain at this time. Respiratory Status: Lungs are clear, but diminished. Patient is on room air. Skin: Maceration noted to groin, cleansed and nystatin applied. Photos placed in the chart. Bowel/Bladder Continence: Continent of bowel and bladder, some stress incontinence noted. LBM 04/23 ADL Functional Status: Moderate assist x 1 with walker in ambulation. Moderate assist with bathing and dressing. Able to done other ADLs with minimal assistance/supervision. Fall(s) Patient denies any falls prior to admission
[2019-04-24 07:38] VITALS: BP 132/79
[2019-04-24] MEDS: metOLazone 2.5 MG TABLET PO SCH (07:58)
[2019-04-24] MEDS: POTASSIUM CHLORIDE 10 MEQ TABLET.ER. PO SCH ×2 (07:58→20:18)
[2019-04-24] MEDS: MAGNESIUM CHLORIDE ER 64 MG TABLET.ER PO SCH (07:59)
[2019-04-24] MEDS: FUROSEMIDE 40 MG TABLET PO SCH ×2 (07:59→17:07)
[2019-04-24] MEDS: MULTIVITAMIN with MINERAL TABLET. PO SCH (07:59)
[2019-04-24] MEDS: FERROUS SULFATE 325 MG TABLET. PO SCH ×2 (07:59→12:09)
[2019-04-24] MEDS: ASPIRIN 81 MG TAB.CHEW PO SCH (08:00)
[2019-04-24] MEDS: PANTOPRAZOLE 40 MG TABLET. PO SCH (08:00)
[2019-04-24] MEDS: METOPROLOL TART IMMED RELEASE 25 MG TABLET PO SCH ×2 (08:00→20:20)
[2019-04-24] MEDS: POLYETHYLENE GLYCOL 3350 17 GM PACKET. PO SCH (08:00)
[2019-04-24] MEDS: TRIAMCINOLONE ACETONIDE 0.1% TOPICAL CREAM 15GM TUBE. TP SCH ×2 (08:02→20:46)
[2019-04-24] MEDS: NYSTATIN TOPICAL POWDER 15GM BOTTLE. TP SCH ×2 (08:02→20:20)
--- NOTE | 2019-04-24 08:50 | NUR ---
Patient up to bedside visiting with family.
[2019-04-24] MEDS ORDERED: FUROSEMIDE 40 MG/4 ML VIAL IVP SCH (09:00)
--- NOTE | 2019-04-24 09:08 | NUR ---
Patient dressed herself this morning with minimal assistance getting her pants on.
[2019-04-24 20:00] VITALS: BP 127/77
[2019-04-24] MEDS: GABAPENTIN 300 MG CAPSULE. PO SCH (20:17)
[2019-04-24] MEDS: ATORVASTATIN CALCIUM 20 MG TABLET PO SCH (20:18)
--- NOTE | 2019-04-24 22:14 | NUR ---
Swing Bed Admission: Patient Handbook for Residential given to patient. Nursing Problem: CHF Cognitive/Behavioral: Alert and oriented x 4, forgetful at times. Very pleasant and cooperative with staff. Pain: Denies any pain at this time. Respiratory Status: Lungs are clear. Patient is on room air. Skin: Maceration noted to groin, cleansed, kenalog and nystatin applied. Bowel/Bladder Continence: Continent of bowel and bladder, some stress incontinence noted. LBM 04/24 ADL Functional Status: Moderate assist x 1 with walker in ambulation. Moderate assist with bathing and dressing. Able to do other ADLs with minimal assistance/supervision. Fall(s) Patient denies any falls prior to admission
--- NOTE | 2019-04-24 22:23 | NUR ---
Pt was able to get her pj's on and go to the restroom with stand by assist only. She is in bed laying awake. Pt states "she cant get her brain to shut off".
[2019-04-25] MEDS: LEVOTHYROXINE 100 MCG TABLET PO SCH (05:05)
[2019-04-25] MEDS: PANTOPRAZOLE 40 MG TABLET. PO SCH (08:07)
[2019-04-25] MEDS: POLYETHYLENE GLYCOL 3350 17 GM PACKET. PO SCH (08:07)
[2019-04-25] MEDS: MAGNESIUM CHLORIDE ER 64 MG TABLET.ER PO SCH (08:07)
[2019-04-25] MEDS: MULTIVITAMIN with MINERAL TABLET. PO SCH (08:07)
[2019-04-25] MEDS: FERROUS SULFATE 325 MG TABLET. PO SCH ×2 (08:07→13:06)
[2019-04-25] MEDS: FUROSEMIDE 40 MG TABLET PO SCH ×2 (08:07→16:24)
[2019-04-25] MEDS: metOLazone 2.5 MG TABLET PO SCH (08:07)
[2019-04-25] MEDS: ASPIRIN 81 MG TAB.CHEW PO SCH (08:08)
[2019-04-25] MEDS: METOPROLOL TART IMMED RELEASE 25 MG TABLET PO SCH ×2 (08:08→21:16)
[2019-04-25] MEDS: POTASSIUM CHLORIDE 10 MEQ TABLET.ER. PO SCH ×2 (08:08→21:16)
[2019-04-25] MEDS: TRIAMCINOLONE ACETONIDE 0.1% TOPICAL CREAM 15GM TUBE. TP SCH ×2 (08:45→21:16)
[2019-04-25] MEDS: NYSTATIN TOPICAL POWDER 15GM BOTTLE. TP SCH ×2 (08:45→21:16)
--- NOTE | 2019-04-25 09:43 | NUR ---
Swing Bed Nursing note Patient Handbook for Group Home given to patient. Nursing Problem: CHF Cognitive/Behavioral: Alert and oriented x 4, forgetful at times. Very pleasant and cooperative with staff. Pain: Denies any pain at this time. Respiratory Status: Lungs are clear, but diminished. Patient is on room air. Skin: Maceration noted to groin, cleansed and nystatin applied. Photos placed in the chart. Bowel/Bladder Continence: Continent of bowel and bladder, some stress incontinence noted. LBM 04/24 ADL Functional Status: Moderate assist x 1 with walker in ambulation. Moderate assist with bathing and dressing. Able to done other ADLs with minimal assistance/supervision. Fall(s) Patient denies any falls prior to admission
[2019-04-25 18:09] VITALS: BP 128/70
[2019-04-25] MEDS: GABAPENTIN 300 MG CAPSULE. PO SCH (21:16)
[2019-04-25] MEDS: ATORVASTATIN CALCIUM 20 MG TABLET PO SCH (21:16)
--- NOTE | 2019-04-26 06:13 | NUR ---
Swing Bed Note: Nursing Problem: CHF Cognitive/Behavioral: Alert and oriented x 4, forgetful at times. Pt is anxious and sad but cooperative with staff. She is concerned about her daughter's decision to move her to [facility]. Pt states,"I don't know why they are making me go. I have a perfectly good house and have a home health nurse that helps me." Pain: Denies any pain at this time. Respiratory Status: Lungs are clear, but diminished. Patient is on room air during the day, 2L at night via NC. Skin: Maceration noted to groin, cleansed and nystatin applied. Bowel/Bladder Continence: Continent of bowel and bladder, some stress incontinence noted. LBM 04/25 ADL Functional Status: Moderate assist x 1 with walker in ambulation. Moderate assist with bathing and dressing. Able to done other ADLs with minimal assistance/supervision. Fall(s) Patient denies any falls prior to admission
[2019-04-26] MEDS: LEVOTHYROXINE 100 MCG TABLET PO SCH (06:24)
[2019-04-26 06:32] VITALS: BP 99/60
[2019-04-26] MEDS: POLYETHYLENE GLYCOL 3350 17 GM PACKET. PO SCH (08:00)
[2019-04-26] MEDS: ASPIRIN 81 MG TAB.CHEW PO SCH (08:39)
[2019-04-26] MEDS: MAGNESIUM CHLORIDE ER 64 MG TABLET.ER PO SCH (08:39)
[2019-04-26] MEDS: metOLazone 2.5 MG TABLET PO SCH (08:39)
[2019-04-26] MEDS: MULTIVITAMIN with MINERAL TABLET. PO SCH (08:39)
[2019-04-26] MEDS: PANTOPRAZOLE 40 MG TABLET. PO SCH (08:39)
[2019-04-26] MEDS: FERROUS SULFATE 325 MG TABLET. PO SCH ×2 (08:39→14:00)
[2019-04-26] MEDS: FUROSEMIDE 40 MG TABLET PO SCH ×2 (08:40→16:15)
[2019-04-26] MEDS: POTASSIUM CHLORIDE 10 MEQ TABLET.ER. PO SCH ×2 (08:40→20:18)
[2019-04-26] MEDS: METOPROLOL TART IMMED RELEASE 25 MG TABLET PO SCH ×2 (08:40→20:18)
[2019-04-26] MEDS: NYSTATIN TOPICAL POWDER 15GM BOTTLE. TP SCH ×2 (08:41→20:18)
[2019-04-26] MEDS: TRIAMCINOLONE ACETONIDE 0.1% TOPICAL CREAM 15GM TUBE. TP SCH ×2 (08:41→20:18)
[2019-04-26 16:33] VITALS: BP 120/50
[2019-04-26] MEDS: GABAPENTIN 300 MG CAPSULE. PO SCH (20:17)
[2019-04-26] MEDS: ATORVASTATIN CALCIUM 20 MG TABLET PO SCH (20:18)
--- NOTE | 2019-04-27 04:28 | NUR ---
Swing Bed NURSING NOTE: Patient Handbook for Alf given to patient. Nursing Problem: CHF Cognitive/Behavioral: Alert and oriented x 4, forgetful at times. Very pleasant and cooperative with staff. Patient is very upset and does not want to go to the [facility], wants to go home. Pain: Denies any pain at this time. Respiratory Status: Lungs are clear, but diminished. Patient is on room air. Skin: Maceration noted to groin, cleansed and nystatin applied. Photos placed in the chart. Bowel/Bladder Continence: Continent of bowel and bladder, some stress incontinence noted. LBM 04/25 ADL Functional Status: Moderate assist x 1 with walker in ambulation. Moderate assist with bathing and dressing. Able to done other ADLs with minimal assistance/supervision. Fall(s) Patient denies any falls prior to admission
[2019-04-27 05:02] VITALS: BP 123/87
[2019-04-27] MEDS: LEVOTHYROXINE 100 MCG TABLET PO SCH (05:17)
[2019-04-27] MEDS: POLYETHYLENE GLYCOL 3350 17 GM PACKET. PO SCH (08:00)
[2019-04-27] MEDS: MAGNESIUM CHLORIDE ER 64 MG TABLET.ER PO SCH (08:24)
[2019-04-27] MEDS: PANTOPRAZOLE 40 MG TABLET. PO SCH (08:24)
[2019-04-27] MEDS: metOLazone 2.5 MG TABLET PO SCH (08:24)
[2019-04-27 08:25] VITALS: BP 123/87
[2019-04-27] MEDS: POTASSIUM CHLORIDE 10 MEQ TABLET.ER. PO SCH (08:25)
[2019-04-27] MEDS: METOPROLOL TART IMMED RELEASE 25 MG TABLET PO SCH (08:25)
[2019-04-27] MEDS: MULTIVITAMIN with MINERAL TABLET. PO SCH (08:25)
[2019-04-27] MEDS: FERROUS SULFATE 325 MG TABLET. PO SCH (08:25)
[2019-04-27] MEDS: ASPIRIN 81 MG TAB.CHEW PO SCH (08:25)
[2019-04-27] MEDS: FUROSEMIDE 40 MG TABLET PO SCH (08:25)
[2019-04-27] MEDS: TRIAMCINOLONE ACETONIDE 0.1% TOPICAL CREAM 15GM TUBE. TP SCH (08:26)
[2019-04-27] MEDS: NYSTATIN TOPICAL POWDER 15GM BOTTLE. TP SCH (08:26)
--- NOTE | 2019-04-27 10:00 | NUR ---
SWING BED DOCUMENTATION Patient Handbook for Long-Term given to patient. Nursing Problem: CHF Cognitive/Behavioral: Alert and oriented x 4, forgetful at times. Pt was rude this am with staff for various reasons. Pt wants to go home but having family issues and family does not want her home alone due to pt safety. Pain: Denies any pain at this time. Respiratory Status: Lungs are clear, but diminished. Patient is on room air. Skin: Maceration noted to groin, cleansed and nystatin applied. Photos placed in the chart for discharge. Bowel/Bladder Continence: Continent of bowel and bladder, some stress incontinence noted. LBM 04/24 ADL Functional Status: Moderate assist x 1 with walker in ambulation. Moderate assist with bathing and dressing. Able to done other ADLs with minimal assistance/supervision. Fall(s) Patient denies any falls prior to admission grzegorz gusman.
--- NOTE | 2019-04-27 10:31 | NUR ---
NURSING NOTE ORDERS RECEIVED FOR DISCHARGE HOME WITH HOME HEALTH. PT REFUSING TO GO TO NURSING FACILITY STATES SHE WANTS TO GO HOME. FAMILY CAME AND DISCUSSION WITH PT. FAMILY DOES NOT WANT PT TO GO HOME. PT DAUGHTER CALLED [facility] AND GOT PT A TEMPORARY APPT UNTIL THEY CAN MOVE HER FURNITURE OVER THERE. PT WAS NOT HAPPY AND STATES "I GUESS MY OPINION DOESN'T MATTER ANYMORE". THIS NURSE LEFT THE ROOM TO LET FAMILY DISCUSS SITUATION IN PRIVATE. KRISSY CORRIGAN.
--- NOTE | 2019-04-27 10:35 | NUR ---
NURSING NOTE DISCHARGE PT DISCHARGED HOME WITH HOME HEALTH. PT FAMILY (SON AND DAUGHTER) HERE TO TAKE HER HOME. PT FAMILY VERY UPSET WITH PT AT THIS TIME. PT REFUSING TO GO TO SKILLED FACILITY OR NURSING FACILITY. PT WANTS TO GO HOME. PT FAMILY DOES NOT WANT PT HOME ALONE. PT DAUGHTER GOT PT AN APPT AT [facility]. PT FAMILY DISCUSSING PLAN AFTER DISCHARGE. WRITTEN AND VERBAL DISCHARGE INSTRUCTIONS GIVEN TO PT. NO SCRIPTS, NO MEDICATION CHANGES. PT SENT HOME WITH [facility]. FOLLOW UP INSTRUCTIONS ON DISCHARGE PACKET. NO COMPLICATIONS OTHER THAN NOTED ABOVE. KRISSY CORRIGAN.
--- NOTE | 2019-04-29 18:57 | DS ---
DATE OF DISCHARGE: 04/27/2019 HOSPITAL COURSE: She was initially admitted to the skilled unit on 04/23/2019 to [facility] bed facility. The patient received PT, OT and further evaluation of her CHF. The patient made excellent progress. There was some concern about her going home, which she demanded and the family wanted to go down the [facility]. Eventually, the family did take her down to [facility] for further treatment there. Otherwise, the patient made good progress during the rest of her hospitalization and she was discharged from the skilled unit to go down to the [facility]. IMPRESSION: Acute on top of chronic diastolic heart failure, pleural effusions, generalized weakness. PLAN: The patient will be on a heart healthy diet, decreased activity and make further evaluation as indicated. MARTINEZ MONTOYA MD DR: LILI/kimberly JOB#: [id number] / [id number]
== END 2019-04-27 10:35 | disposition home health service (06) | DRG 293 ==
LOC: LND 17:52
PROVIDERS: ADMIT Family Medicine; ATTEND Family Medicine
DX: I11.0 Hypertensive heart disease with heart failure (principal); I48.2 Chronic atrial fibrillation; I50.23 Acute on chronic systolic (congestive) heart failure; M19.90 Unspecified osteoarthritis, unspecified site; E78.00 Pure hypercholesterolemia, unspecified; M54.30 Sciatica, unspecified side; E66.9 Obesity, unspecified; K21.9 Gastro-esophageal reflux disease without esophagitis; N28.9 Disorder of kidney and ureter, unspecified; G47.30 Sleep apnea, unspecified; Z90.49 Acquired absence of other specified parts of digestive tract; Z96.659 Presence of unspecified artificial knee joint; Z98.49 Cataract extraction status, unspecified eye; E87.6 Hypokalemia; Z90.710 Acquired absence of both cervix and uterus; Z98.51 Tubal ligation status; Z88.1 Allergy status to other antibiotic agents; Z88.2 Allergy status to sulfonamides; Z88.8 Allergy status to other drugs, medicaments and biological substances; Z68.34 Body mass index [BMI] 34.0-34.9, adult; R53.1 Weakness
CPT/HCPCS: 36415; 80048; 83735; 97110; 97112; 97116; 97535

== ENCOUNTER 2019-07-10 09:44 | Inpatient (IN) | payer MEDICARE, OTHER ==
[~2019-07-10] VITALS: Ht 165.1 cm; Wt 82.3 kg
[~2019-07-10 09:44] MED LIST changes: +METO2.5T PO; +NYST15PO9 TP; +TRIA15CR50 TP
--- NOTE | 2019-07-10 09:56 | EKG ---
[address] [address] Test Date: 2019-07-10 Test Time: 09:54:37 Pat Name: MARK ABDULLAHI Department: Room: Gender: F [employer]: : 1930 Requested By: SHENA LAUREN Order Number: [id number] Reading MD: Measurements Intervals [place] Rate: 78 P: NC: QRS: 23 QRSD: 98 T: 37 QT: 406 QTc: 467 Interpretive Statements IRREGULAR RHYTHM, NO P-WAVE FOUND VENTRICULAR PREMATURE COMPLEX(ES) ABNORMAL ECG RI6.01 Compared to ECG 04/20/2019 17:13:36 Atrial fibrillation no longer present
[2019-07-10] MEDS ORDERED: IV NORMAL SALINE 500ML 500 ML IV ONE (10:00)
--- NOTE | 2019-07-10 10:10 | PHYS DOC ---
Past History Past Medical History: A-Fib, Hypertension Past Surgical History: Appendectomy, Cholecystectomy, Hysterectomy, Knee Replacement, Tonsillectomy Smoking: Non-smoker Alcohol Use: Rarely Drug Use: None Adult General Chief Complaint Chief Complaint: WEAKNESS/GENERALIZED HPI HPI 89-year-old female presents via EMS with general weakness. The patient comes from assisted living facility. She just finished antibiotics for urinary tract infection yesterday. The patient states she has felt generally fatigued and tired more than usual for the last 2 days. She denies chest pain, shortness of breath, nausea, vomiting, diarrhea. She has not had fever or chills. Her only complaint is "tired". Review of Systems Review of Systems Constitutional: Fatigue. Denies fever or chills [] Eyes: Denies change in visual acuity, redness, or eye pain [] HENT: Denies nasal congestion or sore throat [] Respiratory: Denies cough or shortness of breath [] Cardiovascular: No additional information not addressed in HPI [] GI: Denies abdominal pain, nausea, vomiting, bloody stools or diarrhea [] : Denies dysuria or hematuria [] Musculoskeletal: Denies back pain or joint pain [] Integument: Denies rash or skin lesions [] Neurologic: Denies headache, focal weakness or sensory changes [] Endocrine: Denies polyuria or polydipsia [] All other systems were reviewed and found to be within normal limits, except as documented in this note. Current Medications Current Medications Current Medications Medications (Trade) Dose Ordered Sig/Roger Start Time Stop Time Status Last Admin Dose Admin Sodium Chloride 500 ml @ 0 mls/hr 1X ONCE 07/10/19 10:00 07/10/19 10:01 DC Allergies Allergies Allergies Coded Allergies Type Severity Reaction Last Updated Verified Sulfa (Sulfonamide Antibiotics) Allergy Intermediate Rash 04/20/19 Yes Physical Exam Physical Exam Constitutional: Well developed, well nourished, no acute distress, non-toxic appearance. [] HENT: Normocephalic, atraumatic, bilateral external ears normal, oropharynx moist, no oral exudates, nose normal. [] Eyes: PERRLA, EOMI, conjunctiva normal, no discharge. [] Neck: Normal range of motion, no tenderness, supple, no stridor. [] Cardiovascular:Heart rate irregular rhythm, no murmur [] Lungs & Thorax: Bilateral breath sounds clear to auscultation [] Abdomen: Bowel sounds normal, soft, no tenderness, no masses, no pulsatile masses. [] Skin: Warm, dry, no erythema, no rash. [] Back: No tenderness, no CVA tenderness. [] Extremities: No tenderness, no cyanosis, no clubbing, ROM intact, no edema. [] Neurologic: Alert and oriented X 3, normal motor function, normal sensory function, no focal deficits noted. [] Psychologic: Affect normal, judgement normal, mood normal. [] Current Patient Data Vital Signs Vital Signs Date Time Temp Pulse Resp B/P (MAP) Pulse Ox O2 Delivery O2 Flow Rate FiO2 07/10/19 09:48 98.2 73 18 96 Room Air EKG EKG Irregular rhythm, rate 78, atrial fibrillation, normal axis, no ST elevations or depressions, PVCs[] Radiology/Procedures Radiology/Procedures [] Impressions: CHEST AP ONLY History: Weakness. Comparison: April 20, 2019 Findings: Tiny left pleural effusion with adjacent atelectasis, similar compared to prior. Mitral annulus calcifications. Unchanged heart size. No pneumothorax. Impression: 1. Tiny left pleural effusion adjacent atelectasis, unchanged. Electronically signed by: Conor Hernandez DO (07/10/2019 10:38 AM) [facility] DICTATED AND SIGNED BY: CONOR HERNANDEZ DO DATE: 07/10/19 1038 CC: SHENA LAUREN DO; MARTINEZ MONTOYA MD ~ Course & Med Decision Making Course & Med Decision Making Pertinent Labs and Imaging studies reviewed. (See chart for details) The patient's labs are significant for a low potassium of 2.2. We will replace this orally and by IV. Her sodium is also a touch low. Her creatinine and BUN are elevated. She has had similar creatinines in the past, but her BUN hints of dehydration. Family has told us that she has been having darker colored stools that are loose for the last 2 weeks. They're not sure if this is intermittent or every stool. The patient's hemoglobin is normal. I have ordered C. difficile, ova and parasites, stool culture, and stool occult. I discussed the patient with Dr. Montoya and he has accepted her for admission. [] Dragon Disclaimer Dragon Disclaimer This electronic medical record was generated, in whole or in part, using a voice recognition dictation system. Departure Departure: Impression: Primary Impression: Weakness Additional Impressions: Hypokalemia due to excessive gastrointestinal loss of potassium Hyponatremia Disposition: ADMITTED INPATIENT Admitting Physician: Martinez Montoya Condition: STABLE Referrals: MARTINEZ MONTOYA MD (PCP) Problem Qualifiers SHENA LAUREN DO Jul 10, 2019 10:10
[2019-07-10 10:23] LABS: BASO % 0 % (0-3); EOS % 0 % (0-3); HEMOGLOBIN 14.8 g/dL (12.0-15.5); LYMPH # 0.8 x10^3/uL (1.0-4.8); LYMPH % 5 % (24-48); MEAN CORPUSCULAR HEMOGLOBIN 28 pg (25-35); MEAN CORPUSCULAR HGB CONC 34 g/dL (31-37); MEAN CORPUSCULAR VOLUME 83 fL (79-100); MONO # 1.1 x10^3/uL (0.0-1.1); MONO % 6 % (0-9); NEUT # 15.5 x10^3uL (1.8-7.7); NEUT % 88 % (31-73); PLATELET COUNT 320 x10^3/uL (140-400); RED CELL DISTRIBUTION WIDTH 15.5 % (11.5-14.5); WHITE BLOOD COUNT 17.5 x10^3/uL (4.0-11.0)
[2019-07-10 10:33] LABS: ALBUMIN 2.7 g/dL (3.4-5.0); ALBUMIN/GLOBULIN RATIO 0.6 (1.0-1.7); CALCIUM 9.4 mg/dL (8.5-10.1); CREATININE 2.1 mg/dL (0.6-1.0); GFR 22.2; TOTAL BILIRUBIN 1.1 mg/dL (0.2-1.0); TOTAL PROTEIN 6.9 g/dL (6.4-8.2)
[2019-07-10 10:35] LABS: POTASSIUM 2.2 mmol/L (3.5-5.1)
--- NOTE | 2019-07-10 10:41 | RAD ---
CHEST AP ONLY History: Weakness. Comparison: April 20, 2019 Findings: Tiny left pleural effusion with adjacent atelectasis, similar compared to prior. Mitral annulus calcifications. Unchanged heart size. No pneumothorax. Impression: 1. Tiny left pleural effusion adjacent atelectasis, unchanged. Electronically signed by: oCnor Hernandez DO (07/10/2019 10:38 AM) [facility]
[2019-07-10] MEDS ORDERED: POTASSIUM CL 40MEQ IN 0.9%NACL 1,000 ML IV ONE (10:45)
[2019-07-10] MEDS ORDERED: POTASSIUM CHLORIDE 20 MEQ TABLET.ER. PO ONE (10:45)
[2019-07-10 10:54] LABS: BACTERIA,URINE FEW /HPF (0-FEW); BILIRUBIN,URINE NEG (NEG); CLARITY,URINE CLEAR; COLOR,URINE YELLOW; GLUCOSE,URINE NEG (NEG); HYALINE CASTS, URINE OCC /HPF; NITRITE,URINE NEG (NEG); RBC,URINE 0 /HPF (0-2); SQUAMOUS EPITHELIAL CELL,UR OCC /LPF; UROBILINOGEN,URINE 0.2 mg/dL (0.2 mg/dL)
[2019-07-10 11:03] LABS: % BANDS 6 % (0-9); % BASOS 1 % (0-3); % EOS 0 % (0-5); % LYMPHS 6 % (24-48); % MONOS 3 % (0-10); % SEGS 84 % (35-66); PLATELET CLUMP PRESENT; PLT ESTIMATE INCREASED (ADEQUATE)
[2019-07-10] MEDS ORDERED: ONDANSETRON PF 4 MG/2 ML VIAL. IV PRN (11:15)
[2019-07-10 11:57] VITALS: BP 117/67
[2019-07-10] MEDS ORDERED: ELECTROLYTE (ICU) PROTOCOL. MC PRN (12:45)
[2019-07-10] MEDS: FERROUS SULFATE 325 MG TABLET. PO SCH (14:26)
[2019-07-10] MEDS ORDERED: FUROSEMIDE 40 MG TABLET PO SCH (16:00)
[2019-07-10] MEDS: ACETAMINOPHEN 500 MG TABLET PO PRN (19:35)
[2019-07-10 20:00] VITALS: BP 104/57
[2019-07-10] MEDS: GABAPENTIN 300 MG CAPSULE. PO SCH (20:45)
[2019-07-10] MEDS: NYSTATIN TOPICAL POWDER 15GM BOTTLE. TP SCH (20:46)
[2019-07-10] MEDS: TRIAMCINOLONE ACETONIDE 0.1% TOPICAL CREAM 15GM TUBE. TP SCH (20:47)
[2019-07-10] MEDS ORDERED: ATORVASTATIN CALCIUM 20 MG TABLET PO SCH (21:00)
[2019-07-10] MEDS ORDERED: METOPROLOL TART IMMED RELEASE 25 MG TABLET PO SCH (21:00)
[2019-07-10] MEDS ORDERED: POTASSIUM CHLORIDE 10 MEQ TABLET.ER. PO SCH (21:00)
[2019-07-11 00:05] VITALS: BP 100/56
[2019-07-11 04:00] VITALS: BP 127/66
[2019-07-11] MEDS: LEVOTHYROXINE 100 MCG TABLET PO SCH (05:22)
[2019-07-11 05:47] LABS: FECAL OB PT POSITIVE (NEG)
[2019-07-11 07:35] LABS: CALCIUM 9.3 mg/dL (8.5-10.1); CREATININE 1.8 mg/dL (0.6-1.0); GFR 26.6
[2019-07-11] MEDS ORDERED: metOLazone 2.5 MG TABLET PO SCH (08:00)
[2019-07-11 08:23] LABS: BASO % 0 % (0-3); EOS # 0.1 x10^3/uL (0.0-0.7); EOS % 0 % (0-3); HEMATOCRIT 41.2 % (36.0-47.0); HEMOGLOBIN 13.9 g/dL (12.0-15.5); LYMPH # 1.1 x10^3/uL (1.0-4.8); LYMPH % 6 % (24-48); MEAN CORPUSCULAR HEMOGLOBIN 28 pg (25-35); MEAN CORPUSCULAR HGB CONC 34 g/dL (31-37); MEAN CORPUSCULAR VOLUME 83 fL (79-100); MONO # 1.1 x10^3/uL (0.0-1.1); MONO % 6 % (0-9); NEUT # 16.5 x10^3uL (1.8-7.7); NEUT % 88 % (31-73); PLATELET COUNT 279 x10^3/uL (140-400); RED BLOOD COUNT 4.99 x10^6/uL (3.50-5.40); RED CELL DISTRIBUTION WIDTH 15.4 % (11.5-14.5); WHITE BLOOD COUNT 18.8 x10^3/uL (4.0-11.0)
[2019-07-11] MEDS ORDERED: MORPHINE SULFATE 2 MG/ML DISP.SYRIN. IV PRN (08:45)
[2019-07-11] MEDS: POLYETHYLENE GLYCOL 3350 17 GM PACKET. PO SCH (09:10)
[2019-07-11] MEDS: FERROUS SULFATE 325 MG TABLET. PO SCH ×2 (09:13→14:39)
[2019-07-11] MEDS: POTASSIUM CHLORIDE 20MEQ 100 ML IV SCH ×2 (09:13→12:39)
[2019-07-11] MEDS: MULTIVITAMIN with MINERAL TABLET. PO SCH (09:14)
[2019-07-11] MEDS: MAGNESIUM CHLORIDE ER 64 MG TABLET.ER PO SCH (09:14)
[2019-07-11] MEDS: ASPIRIN 81 MG TAB.CHEW PO SCH (09:14)
[2019-07-11] MEDS: TRIAMCINOLONE ACETONIDE 0.1% TOPICAL CREAM 15GM TUBE. TP SCH ×2 (09:15→21:45)
[2019-07-11] MEDS: NYSTATIN TOPICAL POWDER 15GM BOTTLE. TP SCH ×2 (09:15→21:45)
[2019-07-11] MEDS: METOPROLOL SUCC 24HR ER 25 MG TAB.ER.24H. PO SCH (09:23)
[2019-07-11] MEDS: POTASSIUM CHLORIDE 20 MEQ PACKET. PO SCH ×5 (09:23→21:47)
[2019-07-11] MEDS: PANTOPRAZOLE 40 MG TABLET. PO SCH (09:24)
[2019-07-11 10:42] VITALS: BP 111/74
--- NOTE | 2019-07-11 11:55 | HP ---
ADMIT DATE: HISTORY OF PRESENT ILLNESS: The patient came in from an assisted living facility. She was feeling very poorly, came in through the Emergency Room, was found to have a potassium of 2.2, I believe. The patient apparently had been having diarrhea, although she did not mention that at first. Her white count was elevated at 17,000 and the patient had multiple other medical problems as well as not feeling very well and lower abdominal pain. The patient in turn has been brought into the ICU. She is being given additional potassium per protocol for ICU as well as giving her further evaluation on multiple other fronts including hydration, antibiotics and the like. The patient otherwise was admitted for the hypokalemia. She also began to complain of lower abdominal pain and we will continue to monitor that, get stools for C. diff and the like. The patient may also have a bladder infection. The patient basically is able to communicate, but she does look awful ____ and we will continue to monitor her accordingly for these multiple medical problems. PAST MEDICAL HISTORY: Dementia, congestive heart failure, respiratory disorders. Sleep apnea, no CPAP. GI; gallbladder removal, hysterectomy, appendectomy, obesity, GERD, hysterectomy, urinary tract infection. Orthopedic; surgery on her left knee, joint replacement, clotting problems. IMMUNIZATIONS: Tetanus diphtheria vaccine, tetanus toxoid vaccination, influenza up-to-date. SURGERIES: As noted. ALLERGIES: PENICILLIN AND SULPHUR. MEDICATIONS: The patient's other medications were ____; ferrous sulfate, Lipitor 20, metoprolol 25, aspirin 81, gabapentin 600, magnesium chloride, potassium 10 mEq, furosemide 40, metolazone, polyethylene glycol, Protonix, levothyroxine, nystatin powder, triamcinolone, and multivitamins. SOCIAL HISTORY: The patient denies smoking, alcohol or drug use. FAMILY HISTORY: Noncontributory. REVIEW OF SYSTEMS: The patient notes more abdominal pain. Denies headaches, visual change, blurred vision, double vision. Denies any melena, hematochezia, hematemesis. Neurologic: The patient is alert and oriented x 3, although very ill and says she does not feel very well, trying to replace her potassium as quickly as possible per protocol there. PHYSICAL EXAMINATION: GENERAL: An ill-appearing white female, moderate amount of distress. VITAL SIGNS: Blood pressure was down to 104/57, respirations 16, pulse 73, afebrile. HEENT: The patient's head was atraumatic, normocephalic. Eyes: PERRLA without jaundice. The mouth and throat were normal. NECK: Supple. No JVD, carotids or thyromegaly. LUNGS: Diminished, but clear. CARDIOVASCULAR: Regular sinus rhythm, S1, S2, without murmur, rub, thrill, or extra heart sounds. ABDOMEN: Soft. There is definitely some tenderness in the lower abdominal area with some guarding mild. No rebounding. Positive bowel sounds, stool being pended. EXTREMITIES: No clubbing, cyanosis. Trace edema. NEUROLOGIC: The patient is alert and oriented, but very ill, very weak speech. The patient's stool occult was positive, so we will go ahead and take her off her aspirin and anticoagulation, put her on wraps for her legs or pneumatic pumps. Also, she is on Protonix, we will keep her on that for now. CBC for this morning is pending, get the CAT scan of her abdomen and pelvis and make further evaluation on her. IMPRESSION: Severe hypokalemia, possible gastrointestinal bleed, diarrhea, abdominal pain. The patient will continue to be monitored carefully and make further evaluation on her per those results. Otherwise, will be in the ICU and continue on IV antibiotic therapy for now since she has elevated white count value around 18,000. Nonessential medications have been discontinued off her list and we will continue to monitor her accordingly. CODE STATUS: The patient is a full code. MARTINEZ MONTOYA MD DR: LILI/kimberly JOB#: [id number] / [id number]
[2019-07-11] MEDS ORDERED: HEPARIN for SUB-Q USE 5,000 UNIT/ML VIAL. SQ SCH (14:00)
[2019-07-11 14:38] VITALS: BP 119/73
[2019-07-11] MEDS: ACETAMINOPHEN 500 MG TABLET PO PRN (14:39)
--- NOTE | 2019-07-11 17:39 | EKG ---
[address] [address] Test Date: 2019-07-11 Test Time: 15:32:01 Pat Name: MARK ABDULLAHI Department: Room: [place] [address] Gender: F Medical Chemist: JOHN : 1930 Requested By: MARTINEZ MONTOYA Order Number: [id number] Reading MD: Measurements Intervals [place] Rate: 83 P: CO: QRS: 44 QRSD: 78 T: 38 QT: 372 QTc: 438 Interpretive Statements IRREGULAR RHYTHM, NO P-WAVE FOUND OTHERWISE NORMAL ECG RI6.02 No previous ECG available for comparison
[2019-07-11 18:35] LABS: CALCIUM 9.1 mg/dL (8.5-10.1); CREATININE 1.7 mg/dL (0.6-1.0); GFR 28.4; POTASSIUM 3.5 mmol/L (3.5-5.1)
[2019-07-11] MEDS ORDERED: LOPERAMIDE 2 MG CAPSULE PO ONE (19:15)
[2019-07-11 19:30] VITALS: BP 146/83
[2019-07-11] MEDS: GABAPENTIN 300 MG CAPSULE. PO SCH (21:45)
[2019-07-11] MEDS: IV 1/2 NORMAL SALINE 1,000 ML IV SCH (21:46)
[2019-07-11 22:00] VITALS: BP 140/74
[2019-07-12] MEDS: LEVOTHYROXINE 100 MCG TABLET PO SCH (06:28)
[2019-07-12 06:36] VITALS: BP 130/71
[2019-07-12 06:45] LABS: BASO % 0 % (0-3); EOS # 0.2 x10^3/uL (0.0-0.7); EOS % 1 % (0-3); HEMATOCRIT 39.2 % (36.0-47.0); LYMPH % 7 % (24-48); MEAN CORPUSCULAR HEMOGLOBIN 28 pg (25-35); MEAN CORPUSCULAR HGB CONC 33 g/dL (31-37); MEAN CORPUSCULAR VOLUME 85 fL (79-100); MONO # 0.9 x10^3/uL (0.0-1.1); MONO % 6 % (0-9); NEUT # 12.4 x10^3uL (1.8-7.7); NEUT % 86 % (31-73); PLATELET COUNT 257 x10^3/uL (140-400); RED BLOOD COUNT 4.64 x10^6/uL (3.50-5.40); RED CELL DISTRIBUTION WIDTH 15.3 % (11.5-14.5); WHITE BLOOD COUNT 14.4 x10^3/uL (4.0-11.0)
[2019-07-12 06:48] LABS: CALCIUM 9.3 mg/dL (8.5-10.1); CREATININE 1.5 mg/dL (0.6-1.0); GFR 32.8; POTASSIUM 3.8 mmol/L (3.5-5.1)
[2019-07-12] MEDS: POLYETHYLENE GLYCOL 3350 17 GM PACKET. PO SCH (07:35)
--- NOTE | 2019-07-12 07:39 | RAD ---
Examination: CT ABDOMEN PELVIS WO CONTRAST History: Lower abdominal pain with guarding Comparison/Correlation: None Findings: Axial images of the abdomen and pelvis were obtained without contrast. Emphysematous involvement of the lower lung harrison is noted. Left lateral basilar atelectasis noted. Marked mitral annular calcification is present. Liver, spleen, pancreas, and adrenal glands are normal. Cholecystectomy evident. Marked right renal atrophy noted. There is a large right renal cyst which is borderline in density with Hounsfield units of 21. This measures up to 4.5 cm diameter. Smaller lesion at the right renal interpolar region laterally measuring 1.1 cm x 0.7 cm present. It is smoothly marginated and best seen on axial image 42. Has Hounsfield units of at least 27. No radiopaque collecting system calculi. No hydronephrosis. Urinary bladder is unremarkable. No extraluminal gas. Marked diverticulosis of the distal colon is noted. Inflammatory findings are noted about the sigmoid colon. Circumferential wall thickening of the sigmoid colon diffusely is evident. No loculated collections or extraluminal gas. No bowel obstruction. No inflammatory changes about the cecum. Appendix is not delineated. Cholecystectomy is noted. Postoperative lumbar spine fusion at L4 S5 is present with rods and pedicle screws as well as interbody vertebral disc spacer material. Mild anterolisthesis of L4 relation L5 is present. Impression: Diverticulosis of the distal colon. Surrounding inflammatory change about thickening of the sigmoid colon is of concern for acute diverticulitis. Follow-up to resolution with consideration of assessment with direct visualization are recommended to exclude underlying mass lesion involving the sigmoid colon. Right renal lesions are present. These may represent complex or hemorrhagic cyst. Neoplastic process involvement is not necessarily excluded. Correlate with prior exams assess stability if available. Further evaluation with contrast-enhanced CT according to renal protocol may be performed for more complete assessment. Alternatively, MRI may be considered if able. PQRS Compliance Statement: One or more of the following individualized dose reduction techniques were utilized for this examination: 1. Automated exposure control 2. Adjustment of the mA and/or kV according to patient size 3. Use of iterative reconstruction technique Electronically signed by: Gurvinder Locke MD (07/12/2019 7:36 AM) [facility]
[2019-07-12] MEDS: PANTOPRAZOLE 40 MG TABLET. PO SCH (07:40)
[2019-07-12] MEDS: POTASSIUM CHLORIDE 20 MEQ PACKET. PO SCH ×3 (08:15→20:43)
[2019-07-12] MEDS: ASPIRIN 81 MG TAB.CHEW PO SCH (08:15)
[2019-07-12] MEDS: MULTIVITAMIN with MINERAL TABLET. PO SCH (08:15)
[2019-07-12] MEDS: LOPERAMIDE 2 MG CAPSULE PO PRN ×2 (08:16→20:43)
[2019-07-12] MEDS: METOPROLOL SUCC 24HR ER 25 MG TAB.ER.24H. PO SCH (08:16)
[2019-07-12] MEDS: TRIAMCINOLONE ACETONIDE 0.1% TOPICAL CREAM 15GM TUBE. TP SCH ×2 (08:18→20:44)
[2019-07-12] MEDS: NYSTATIN TOPICAL POWDER 15GM BOTTLE. TP SCH ×2 (08:18→20:44)
[2019-07-12] MEDS: FERROUS SULFATE 325 MG TABLET. PO SCH ×2 (08:18→13:39)
[2019-07-12] MEDS: MAGNESIUM CHLORIDE ER 64 MG TABLET.ER PO SCH (08:18)
[2019-07-12] MEDS: IV 1/2 NORMAL SALINE 1,000 ML IV SCH (10:01)
[2019-07-12 10:14] VITALS: BP 97/62
[2019-07-12] MEDS ORDERED: CLOBETASOL EMOLLIENT 0.05% TOPICAL CREAM 15GM TUBE. TP PRN (12:00)
[2019-07-12] MEDS ORDERED: CLOBETASOL EMOLLIENT 0.05% TOPICAL CREAM 15GM TUBE. TP SCH (12:00)
[2019-07-12 17:48] VITALS: BP 115/65
[2019-07-12 20:19] VITALS: BP 131/87
[2019-07-12] MEDS: LACTOBACILLUS RHAMNOSUS GG 1 CAPSULE. PO SCH (20:43)
[2019-07-12] MEDS: GABAPENTIN 300 MG CAPSULE. PO SCH (20:43)
[2019-07-12] MEDS: ACETAMINOPHEN 500 MG TABLET PO PRN (20:43)
--- NOTE | 2019-07-12 22:55 | PN ---
DATE: SUBJECTIVE: The patient came in with severe diarrhea, severe hypokalemia down to 2.2. The patient remains in the ICU. We have given her potassium and also started her on antibiotics because of an elevated white count. CT scan ([place]) showed diverticulitis and course of the antibiotics seemed to be helping her. This morning, she says, she does not have any pain down there. She is feeling better. OBJECTIVE: VITAL SIGNS: Blood pressure has dropped down to 97/62, respirations 18, pulse 74, afebrile. LUNGS: Diminished, but clear. CARDIOVASCULAR: Regular sinus rhythm. ABDOMEN: Soft, protuberant, but there is some mild tenderness at left lower quadrant, but markedly improved. EXTREMITIES: No clubbing, cyanosis, nor edema. NEUROLOGIC: The patient is alert and oriented. Speech is fluent, spontaneous. Her daughter and granddaughter were present and answered questions there. IMPRESSION: Diverticulitis, severe hypokalemia, diarrhea resolved, hematochezia resolved. PLAN: Put her on a soft diet and continue with IV antibiotic therapy and hopefully ready for discharge as her white count comes down. MARTINEZ MONTOYA MD DR: LILI/kimberly JOB#: [id number] / [id number]
[2019-07-13] MEDS: IV 1/2 NORMAL SALINE 1,000 ML IV SCH ×3 (04:13→21:53)
[2019-07-13] MEDS: LEVOTHYROXINE 100 MCG TABLET PO SCH (05:58)
[2019-07-13 06:17] LABS: BASO % 0 % (0-3); EOS # 0.2 x10^3/uL (0.0-0.7); EOS % 2 % (0-3); HEMATOCRIT 37.1 % (36.0-47.0); HEMOGLOBIN 12.2 g/dL (12.0-15.5); LYMPH % 8 % (24-48); MEAN CORPUSCULAR HEMOGLOBIN 28 pg (25-35); MEAN CORPUSCULAR HGB CONC 33 g/dL (31-37); MEAN CORPUSCULAR VOLUME 85 fL (79-100); MONO # 0.8 x10^3/uL (0.0-1.1); MONO % 7 % (0-9); NEUT # 9.9 x10^3uL (1.8-7.7); NEUT % 83 % (31-73); PLATELET COUNT 237 x10^3/uL (140-400); RED BLOOD COUNT 4.38 x10^6/uL (3.50-5.40); RED CELL DISTRIBUTION WIDTH 15.8 % (11.5-14.5)
[2019-07-13 06:25] VITALS: BP 142/78
[2019-07-13 06:27] LABS: CALCIUM 9.3 mg/dL (8.5-10.1); CREATININE 1.3 mg/dL (0.6-1.0); GFR 38.7; POTASSIUM 4.5 mmol/L (3.5-5.1)
[2019-07-13] MEDS: POLYETHYLENE GLYCOL 3350 17 GM PACKET. PO SCH (07:38)
[2019-07-13] MEDS: ASPIRIN 81 MG TAB.CHEW PO SCH (07:48)
[2019-07-13] MEDS: PANTOPRAZOLE 40 MG TABLET. PO SCH (07:48)
[2019-07-13] MEDS: LACTOBACILLUS RHAMNOSUS GG 1 CAPSULE. PO SCH ×2 (07:49→20:38)
[2019-07-13] MEDS: FERROUS SULFATE 325 MG TABLET. PO SCH ×2 (07:49→14:04)
[2019-07-13] MEDS: MULTIVITAMIN with MINERAL TABLET. PO SCH (07:50)
[2019-07-13] MEDS: MAGNESIUM CHLORIDE ER 64 MG TABLET.ER PO SCH (07:50)
[2019-07-13] MEDS: METOPROLOL SUCC 24HR ER 25 MG TAB.ER.24H. PO SCH (07:50)
[2019-07-13] MEDS: POTASSIUM CHLORIDE 20 MEQ PACKET. PO SCH ×2 (07:50→14:04)
[2019-07-13] MEDS: TRIAMCINOLONE ACETONIDE 0.1% TOPICAL CREAM 15GM TUBE. TP SCH ×2 (09:14→20:41)
[2019-07-13] MEDS: NYSTATIN TOPICAL POWDER 15GM BOTTLE. TP SCH ×2 (09:14→20:40)
[2019-07-13] MEDS: ACETAMINOPHEN 500 MG TABLET PO PRN (09:14)
[2019-07-13 11:04] VITALS: BP 104/67
--- NOTE | 2019-07-13 13:05 | PN ---
DATE: SUBJECTIVE: An 89-year-old female came in with severe diarrhea, severe hypokalemia of 2.2. The patient has been on IV antibiotic therapy for diverticulitis. Her potassium has come back up. Her white count has come down from 17 down to 12. Sodium 133, potassium 4.5. She was also dehydrated as her creatinine went from 1.8 down to 1.3. The patient is otherwise feeling fairly good. Still very depressed, sad over the loss of multiple things in her life here recently. We will continue to be monitored carefully and make further evaluation on her with Dr. Alvarez. OBJECTIVE LUNGS: Diminished, but clear. CARDIOVASCULAR: Regular sinus rhythm. ABDOMEN: Soft. Definite tenderness in that left lower quadrant, but markedly improved. We will continue with IV antibiotic therapy and make further arrangements for possible placement tomorrow with family decision on that as well. IMPRESSION: Therefore, diverticulitis, severe hypokalemia, dehydration, major depression. MARTINEZ MONTOYA MD DR: LILI/kimberly JOB#: [id number] / [id number]
[2019-07-13 15:18] VITALS: BP 134/76
--- NOTE | 2019-07-13 19:11 | PDOC ---
Exam Note: Anthony Note: Please also refer to the separate dictated note~for this date of service dictated separately.~Patient seen individually. Discussed the patient with Nursing staff reviewed the chart.~Reviewed interim history and current functioning. Reviewed vital signs,~Labs/ Radiology~and current medications noted below. Continue current treatment with the changes noted in the dictated addendum note Assessment: Vital Signs/I&O: Vital Signs Date Time Temp Pulse Resp B/P (MAP) Pulse Ox O2 Delivery O2 Flow Rate FiO2 07/13/19 15:18 97.0 90 18 134/76 (95) 98 07/13/19 11:04 Room Air I & O 07/12/19 07/12/19 07/13/19 15:00 23:00 07:00 Intake Total 1100 ml 550 ml 1100 ml Balance 1100 ml 550 ml 1100 ml Labs: Laboratory Tests Test 07/13/19 05:40 White Blood Count 12.0 x10^3/uL (4.0-11.0) H Red Blood Count 4.38 x10^6/uL (3.50-5.40) Hemoglobin 12.2 g/dL (12.0-15.5) Hematocrit 37.1 % (36.0-47.0) Mean Corpuscular Volume 85 fL (79-100) Mean Corpuscular Hemoglobin 28 pg (25-35) Mean Corpuscular Hemoglobin Concent 33 g/dL (31-37) Red Cell Distribution Width 15.8 % (11.5-14.5) H Platelet Count 237 x10^3/uL (140-400) Neutrophils (%) (Auto) 83 % (31-73) H Lymphocytes (%) (Auto) 8 % (24-48) L Monocytes (%) (Auto) 7 % (0-9) Eosinophils (%) (Auto) 2 % (0-3) Basophils (%) (Auto) 0 % (0-3) Neutrophils # (Auto) 9.9 x10^3uL (1.8-7.7) H Lymphocytes # (Auto) 1.0 x10^3/uL (1.0-4.8) Monocytes # (Auto) 0.8 x10^3/uL (0.0-1.1) Eosinophils # (Auto) 0.2 x10^3/uL (0.0-0.7) Basophils # (Auto) 0.0 x10^3/uL (0.0-0.2) Sodium Level 133 mmol/L (136-145) L Potassium Level 4.5 mmol/L (3.5-5.1) Chloride Level 99 mmol/L (98-107) Carbon Dioxide Level 25 mmol/L (21-32) Anion Gap 9 (6-14) Blood Urea Nitrogen 32 mg/dL (7-20) H Creatinine 1.3 mg/dL (0.6-1.0) H Estimated GFR (Cockcroft-Gault) 38.7 Glucose Level 98 mg/dL (70-99) Calcium Level 9.3 mg/dL (8.5-10.1) Current Medications: Meds: Current Medications Medications (Trade) Dose Ordered Sig/Roger Route PRN Reason Start Time Stop Time Status Last Admin Dose Admin Metoprolol Succinate (Toprol Xl) 12.5 mg DAILY PO 07/13/19 09:00 07/13/19 07:52 Lactobacillus Rhamnosus (Culturelle) 1 cap BID PO 07/12/19 21:00 07/13/19 07:52 I have reviewed the current psychotropics carefully including drug interactions. Risk benefit ratio favors no change other than as noted in my dictated progress note. Diagnosis: Problems: (1) Anxiety disorder (2) Major depressive disorder, recurrent episode (3) Impulse control disorder (4) CHF (congestive heart failure) SHAVON MARQUEZ MD Jul 13, 2019 19:11
[2019-07-13 19:20] VITALS: BP 131/74
[2019-07-13] MEDS: LOPERAMIDE 2 MG CAPSULE PO PRN (20:38)
[2019-07-13] MEDS: POTASSIUM CHLORIDE 20 MEQ TABLET.ER. PO SCH (20:38)
[2019-07-13] MEDS: GABAPENTIN 300 MG CAPSULE. PO SCH (20:39)
[2019-07-13 23:30] VITALS: BP 119/78
[2019-07-14] MEDS: LEVOTHYROXINE 100 MCG TABLET PO SCH (05:33)
[2019-07-14 05:35] VITALS: BP 109/72
[2019-07-14 06:15] LABS: BASO % 1 % (0-3); EOS # 0.3 x10^3/uL (0.0-0.7); EOS % 3 % (0-3); HEMATOCRIT 37.5 % (36.0-47.0); HEMOGLOBIN 12.1 g/dL (12.0-15.5); LYMPH # 1.2 x10^3/uL (1.0-4.8); LYMPH % 14 % (24-48); MEAN CORPUSCULAR HEMOGLOBIN 28 pg (25-35); MEAN CORPUSCULAR HGB CONC 32 g/dL (31-37); MEAN CORPUSCULAR VOLUME 87 fL (79-100); MONO # 0.6 x10^3/uL (0.0-1.1); MONO % 8 % (0-9); NEUT # 6.2 x10^3uL (1.8-7.7); NEUT % 75 % (31-73); PLATELET COUNT 242 x10^3/uL (140-400); RED CELL DISTRIBUTION WIDTH 15.6 % (11.5-14.5); WHITE BLOOD COUNT 8.3 x10^3/uL (4.0-11.0)
[2019-07-14 06:22] LABS: CALCIUM 9.3 mg/dL (8.5-10.1); CREATININE 1.2 mg/dL (0.6-1.0); GFR 42.4
[2019-07-14 07:27] LABS: % BANDS 3 % (0-9); % BASOS 0 % (0-3); % EOS 1 % (0-5); % LYMPHS 16 % (24-48); % METAS 1 % (0-0); % MONOS 6 % (0-10); % SEGS 73 % (35-66); BURR CELLS PRESENT; PLT ESTIMATE ADEQUATE (ADEQUATE)
[2019-07-14] MEDS: POLYETHYLENE GLYCOL 3350 17 GM PACKET. PO SCH (07:44)
[2019-07-14] MEDS: POTASSIUM CHLORIDE 20 MEQ TABLET.ER. PO SCH (08:01)
[2019-07-14] MEDS: LACTOBACILLUS RHAMNOSUS GG 1 CAPSULE. PO SCH (08:56)
[2019-07-14] MEDS: MAGNESIUM CHLORIDE ER 64 MG TABLET.ER PO SCH (08:56)
[2019-07-14] MEDS: MULTIVITAMIN with MINERAL TABLET. PO SCH (08:56)
[2019-07-14] MEDS: FERROUS SULFATE 325 MG TABLET. PO SCH (08:57)
[2019-07-14] MEDS: PANTOPRAZOLE 40 MG TABLET. PO SCH (08:57)
[2019-07-14] MEDS: NYSTATIN TOPICAL POWDER 15GM BOTTLE. TP SCH (08:57)
[2019-07-14] MEDS: METOPROLOL SUCC 24HR ER 25 MG TAB.ER.24H. PO SCH (08:57)
[2019-07-14] MEDS: ASPIRIN 81 MG TAB.CHEW PO SCH (08:57)
[2019-07-14] MEDS: TRIAMCINOLONE ACETONIDE 0.1% TOPICAL CREAM 15GM TUBE. TP SCH (08:58)
[2019-07-14 09:06] VITALS: BP 123/75
--- NOTE | 2019-07-14 10:00 | CONS ---
DATE OF CONSULTATION: 07/13/2019 PSYCHIATRIC CONSULTATION This late entry 07/13/2019 covers the elements not covered in my initial note of 07/13/2019. IDENTIFYING DATA: The patient is an 89-year-old female seen in ICU bed 5, [facility], for a psychiatric consult, requested by Dr. Martinez on account of the patient's worsening symptoms of depression, which have exacerbated since she moved to [facility]. She lost her friends, is not wanting to participate in activities of daily living. The patient was seen individually, discussed with nursing staff, and reviewed the chart. CHIEF COMPLAINT: "I am not depressed. I would rather be home, but "I am alright. I have not lost any friends." HISTORY OF PRESENT ILLNESS: Reportedly, the patient had been living at home in [place] and gradually had compromised ability to take care of herself at home. She has been at the [facility] for about 6 months. Her son and daughter live in town and initially seemed to help her at home, but her needs have been greater that they could manage resulting in this transfer. She was admitted through the ER, was found to have potassium of 2.2 approximately. She was having diarrhea. White cell count was elevated at 17,000, complaining of abdominal pain, and other medical problems. She was being worked up for C. diff colitis as well. No clear history of bipolar disorder, suicidal or homicidal ideation. She minimizes memory deficits, but reportedly has a history of short term memory deficits and a prior diagnosis of dementia. Details are unclear at this time. PAST PSYCHIATRIC HISTORY: As above. PAST MEDICAL HISTORY: Congestive heart failure, respiratory disorder, and sleep apnea, no CPAP, GI gallbladder removal, hysterectomy, appendectomy, obesity, GERD, and a history of recurrent urinary tract infections. Surgery, left knee joint replacement, clotting problems. IMMUNIZATIONS: Tetanus diphtheria vaccine and tetanus toxoid vaccination, influenza up-to-date. SURGERIES: As noted. ALLERGIES: PENICILLIN AND SULFA. CURRENT PSYCHOTROPICS: Negative, though she is on Levaquin. FAMILY HISTORY: Not contributory. SOCIAL HISTORY: The patient recently moved to [facility]. No alcohol or drug abuse history. MENTAL STATUS EXAMINATION: The patient was seen individually at some length in the evening of 07/13/2019. She is oriented to herself and situation. Speech is coherent, abstraction fair, computation impaired, language function intact, attention span short. Mood and affect somewhat withdrawn, but she minimizes being depressed. No suicidal or homicidal ideation. LABORATORY DATA: Reviewed. IMPRESSION: Adjustment disorder with depressed mood and anxiety versus major depressive disorder, mild cognitive impairment; anxiety disorder, unspecified. Rest as noted above. RECOMMENDATIONS: From a psychiatric standpoint, the patient minimizes any of her mood symptoms. These are evident. She may benefit from starting on Zoloft 25 mg a day, increasing gradually to 75 mg a day. She may also benefit from starting psychotherapy with a psychologist at the assisted living when she returns there. At this time, the patient is not willing to entertain any psychotropics. Dr. Martinez, thank you for the opportunity to participate in your patient's care. We will follow with you. MAN James MARQUEZ MD DR: VONDA/kimberly JOB#: [id number] / [id number]
[2019-07-14 10:53] VITALS: BP 131/69
[2019-07-14] MEDS ORDERED: ACET325T9 PO (13:16)
[2019-07-14] MEDS ORDERED: LACT1CAP19 PO (13:16)
[2019-07-14] MEDS ORDERED: LOPE2TAB27 PO (13:16)
[2019-07-14] MEDS ORDERED: METR500T PO (13:26)
[2019-07-14] MEDS ORDERED: LEVO500T8 PO (13:26)
[2019-07-14] MEDS ORDERED: CLOB15CR TP (13:53)
--- NOTE | 2019-07-15 00:51 | DS ---
DATE OF DISCHARGE: 07/14/2019 HOSPITAL COURSE: An 89-year-old female was admitted from a long-term. She was extremely weak and run down. She did complain of some lower pelvic pain. She did have an elevated white count of 17,000. She also has severe hypokalemia from diarrhea. The patient was worked up and found to have diverticulitis, placed on IV antibiotic therapy, made good progress while here and was continued with PT, OT and will be transferred to a skilled unit. The patient still had some mild tenderness in her left lower quadrant. She needs to continue on IV antibiotic therapy as well as receive physical and occupational therapy for rehab. IMPRESSION: Diverticulitis, severe hypokalemia, generalized weakness, diarrhea, depression. The patient otherwise made good progress overall and will be discharged home and followed up as an outpatient. She will be discharged to the skilled unit and placed on a low fiber diet for a couple of weeks and then high fiber. See MRAD. PLAN: As above. MARTINEZ MONTOYA MD DR: LILI/kimberly JOB#: [id number] / [id number]
--- NOTE | 2019-07-15 22:46 | PN ---
DATE: 07/14/2019 PSYCHIATRIC PROGRESS NOTE This late entry 07/14/2019 covers elements not covered in my initial note. SUBJECTIVE: I met with the patient evening of 07/14/2019. I met with her in room [address] [facility]. The patient continues to minimize being depressed. She is on fci care, now having been transferred from the ICU. She still denies minimizes being depressed, but repeatedly stated how much she hates it at [facility] and specific staff member there she dislikes. We addressed her being very specific in her thinking about what it is about staff member or the [facility] facility, she dislikes, but she had difficulty elaborating on this. REVIEW OF SYSTEMS: No CV, , pulmonary, eye system symptoms on review, does complain of tiredness. MENTAL STATUS EXAMINATION: Reasonably oriented. Speech is coherent, abstraction fair, computation impaired, language function intact, attention span short. Mood and affect somewhat dysphoric, but she minimizes this. LABORATORY DATA: Reviewed. IMPRESSION: Major depressive disorder versus adjustment disorder with depressed mood, rest unchanged. PLAN: For now, I will defer using any antidepressants, but at some point if mood symptoms are more prominent, she may benefit from this. SHAVON MARQUEZ MD DR: VONDA/kimberly JOB#: [id number] / [id number]
== END 2019-07-14 11:57 | disposition swing bed (61) | DRG 391 ==
LOC: ER 09:44 → ICU 11:29
PROVIDERS: ADMIT Family Medicine; ATTEND Family Medicine
DX: K57.92 Diverticulitis of intestine, part unspecified, without perforation or abscess without bleeding (principal); N17.0 Acute kidney failure with tubular necrosis; E43 Unspecified severe protein-calorie malnutrition; F33.9 Major depressive disorder, recurrent, unspecified; E87.1 Hypo-osmolality and hyponatremia; E87.6 Hypokalemia; E86.0 Dehydration; F63.9 Impulse disorder, unspecified; F41.9 Anxiety disorder, unspecified; I50.9 Heart failure, unspecified; F03.90 Unspecified dementia, unspecified severity, without behavioral disturbance, psychotic disturbance, mood disturbance, and anxiety; G47.30 Sleep apnea, unspecified; I11.0 Hypertensive heart disease with heart failure; I48.91 Unspecified atrial fibrillation; K21.9 Gastro-esophageal reflux disease without esophagitis; Z90.49 Acquired absence of other specified parts of digestive tract; Z90.710 Acquired absence of both cervix and uterus; Z96.652 Presence of left artificial knee joint; E66.9 Obesity, unspecified; Z88.0 Allergy status to penicillin; Z88.2 Allergy status to sulfonamides; Z79.899 Other long term (current) drug therapy; Z87.440 Personal history of urinary (tract) infections; Z68.30 Body mass index [BMI] 30.0-30.9, adult
CPT/HCPCS: 36415; 71045; 74176; 80048; 80053; 81001; 82274; 83605; 83735; 84484; 85007; 85025; 87045; 87086; 87177; 87493; 87641; 93005; 96365; J0696; J1956; J3480; J3490; J7030; J7040; 97530; 99285-25

== ENCOUNTER 2019-07-14 11:38 | Inpatient (IN) | payer MEDICARE, OTHER ==
[~2019-07-14] VITALS: Ht 167.6 cm; Wt 83.1 kg
[2019-07-14 13:10] VITALS: BP 119/67
[2019-07-14] MEDS ORDERED: ACET325T9 PO (13:16)
[2019-07-14] MEDS ORDERED: LOPE2TAB27 PO (13:16)
[2019-07-14] MEDS ORDERED: LACT1CAP19 PO (13:16)
[2019-07-14] MEDS ORDERED: LEVO500T8 PO (13:26)
[2019-07-14] MEDS ORDERED: METR500T PO (13:26)
[2019-07-14] MEDS ORDERED: LOPERAMIDE 2 MG CAPSULE PO PRN (13:45)
[2019-07-14] MEDS ORDERED: CLOB15CR TP (13:53)
--- NOTE | 2019-07-14 14:03 | NUR ---
Swing Bed Admission Patient Handbook for Detention given to patient. Nursing Problem: Patient admitted to room 103 for PT/OT therapy for gait strengthening. Patient having difficulty ambulating throughout room and strengthening her lower extremities. Cognitive/Behavioral: Patient alert and oriented x 3, able to make needs known with some confusion noted at times. Pain: Patient denies need for pain medication, states that she had fallen while at her assisted living. States the bruising to her right side of arm hurts but does not need anything for pain at this time. Respiratory Status: patients lungs clear to auscultate. No SOA upon exerction. Remains on room air. Skin: Skin is dry, thin and intact. Bruising remains to right side of arm due to recent fall at [facility]. Patient arrived to hospital with excoriation to coccyx and left ulcer to coccyx. Calmoseptine applied to area. Wound care consult placed and pictures in chart. Area appears reddned with 1x1cm open area, no drainage or signs of infection noted. Bowel/Bladder Continence: Patient is continent of bowel and bladder with some episodes of stress incontinence noted. Last bowel movement was 9/2. CDiff was obtained while in ICU and was negative. ADL Functional Status: Patient able to sit onto side of bed without assistance but does require standby assistance to stand and pivot to chair and bedside commode. Patient uses walker and gaitbelt to ambulate throughout room but requires assistance long distances. Fall(s) prior to admission? Patient has had numerous falls in the past and is placed on fall precautions Admitted from? ICU 5 and [facility], plan is to discharge back to [facility]
[2019-07-14] MEDS: FERROUS SULFATE 325 MG TABLET. PO SCH (14:57)
[2019-07-14 15:51] VITALS: BP 131/79
[2019-07-14] MEDS ORDERED: FUROSEMIDE 40 MG TABLET PO SCH (16:00)
--- NOTE | 2019-07-14 18:37 | PDOC ---
Exam Note: Anthony Note: Please also refer to the separate dictated note~for this date of service dictated separately.~Patient seen individually. Discussed the patient with Nursing staff reviewed the chart.~Reviewed interim history and current functioning. Reviewed vital signs,~Labs/ Radiology~and current medications noted below. Continue current treatment with the changes noted in the dictated addendum note Assessment: Vital Signs/I&O: Vital Signs Date Time Temp Pulse Resp B/P (MAP) Pulse Ox O2 Delivery O2 Flow Rate FiO2 07/14/19 15:51 97.4 86 20 131/79 (96) 98 Room Air Current Medications: Meds: Current Medications Medications (Trade) Dose Ordered Sig/Roger Route PRN Reason Start Time Stop Time Status Last Admin Dose Admin Ferrous Sulfate (Feosol) 325 mg BID92 PO 07/14/19 14:00 07/14/19 14:58 I have reviewed the current psychotropics carefully including drug interactions. Risk benefit ratio favors no change other than as noted in my dictated progress note. Diagnosis: Problems: (1) Impulse control disorder (2) Major depressive disorder, recurrent episode (3) Anxiety disorder SHAVON MARQUEZ MD Jul 14, 2019 18:37
[2019-07-14] MEDS: GABAPENTIN 300 MG CAPSULE. PO SCH (20:52)
[2019-07-14] MEDS: metroNIDAZOLE 500 MG TABLET PO SCH (20:52)
[2019-07-14] MEDS: LACTOBACILLUS RHAMNOSUS GG 1 CAPSULE. PO SCH (20:52)
[2019-07-14] MEDS: TRIAMCINOLONE ACETONIDE 0.1% TOPICAL CREAM 15GM TUBE. TP SCH (20:53)
[2019-07-14] MEDS: NYSTATIN TOPICAL POWDER 15GM BOTTLE. TP SCH (20:53)
[2019-07-14] MEDS ORDERED: ATORVASTATIN CALCIUM 20 MG TABLET PO SCH (21:00)
[2019-07-14] MEDS ORDERED: CLOBETASOL EMOLLIENT 0.05% TOPICAL CREAM 15GM TUBE. TP PRN (21:00)
[2019-07-15] MEDS: POLYETHYLENE GLYCOL 3350 17 GM PACKET. PO SCH (05:31)
[2019-07-15] MEDS: LEVOTHYROXINE 100 MCG TABLET PO SCH (05:31)
[2019-07-15 05:36] VITALS: BP 136/94
[2019-07-15] MEDS: TRIAMCINOLONE ACETONIDE 0.1% TOPICAL CREAM 15GM TUBE. TP SCH ×2 (07:52→20:40)
[2019-07-15] MEDS: POTASSIUM CHLORIDE 20 MEQ TABLET.ER. PO SCH (07:53)
[2019-07-15] MEDS: MAGNESIUM CHLORIDE ER 64 MG TABLET.ER PO SCH (07:53)
[2019-07-15] MEDS: PANTOPRAZOLE 40 MG TABLET. PO SCH (07:53)
[2019-07-15] MEDS: ASPIRIN 81 MG TAB.CHEW PO SCH (07:53)
[2019-07-15] MEDS: NYSTATIN TOPICAL POWDER 15GM BOTTLE. TP SCH ×2 (07:53→20:40)
[2019-07-15] MEDS: metroNIDAZOLE 500 MG TABLET PO SCH ×2 (07:53→20:40)
[2019-07-15] MEDS: levoFLOXacin 250 MG TABLET PO SCH (07:54)
[2019-07-15] MEDS: LACTOBACILLUS RHAMNOSUS GG 1 CAPSULE. PO SCH ×2 (07:54→20:40)
[2019-07-15] MEDS: FERROUS SULFATE 325 MG TABLET. PO SCH ×2 (07:54→17:16)
[2019-07-15] MEDS: MULTIVITAMIN with MINERAL TABLET. PO SCH (07:54)
[2019-07-15] MEDS: METOPROLOL TART IMMED RELEASE 25 MG TABLET PO SCH (07:57)
[2019-07-15] MEDS ORDERED: metOLazone 2.5 MG TABLET PO SCH (08:00)
--- NOTE | 2019-07-15 08:45 | NUR ---
wound care patient seen per wound care consult. see wound assessment. patient has a stage 3 pressure ulcer to the left buttock, the wound was cleaned and redressed with Calazime cream at this time. recommendations of continuing with the Fiona, prn. patient needs to be turning every 2 hours, while in bed. ordered patient a wheelchair cushion. notified KRISSY Roque about the POC and wound care will continue to f/u for changes.
--- NOTE | 2019-07-15 12:30 | NUR ---
Swing Bed Daily Note: Nursing Problem: Patient admitted to room 103 for PT/OT therapy for gait strengthening, after admission to inpatient hospitalization Cognitive/Behavioral: Patient alert and oriented x 3, able to make needs known. Pain: none at this time Respiratory Status: patients lungs clear to auscultate. SOA with exertion. Remains on room air. Skin: Skin is dry, thin and intact. Bruising right side of arm due to recent fall at [facility]. left ulcer to coccyx- calmoseptine applied to area. Bowel/Bladder Continence: Patient is continent of bowel and bladder with some episodes of stress incontinence noted.LBM 9/4. ADL Functional Status: Patient able to sit onto side of bed without assistance but does require one person assistance to stand and pivot to chair and bedside commode. Patient uses walker and gait belt to ambulate throughout room with standby assist and requires assistance long distances. feeds and toilets self. able to get first leg up into bed herself but needed assist to get second leg into bed Fall(s) prior to admission? numerous falls in the past and is placed on fall precautions Admitted from? ICU 5 and [facility], plan is to discharge back to [facility]
[2019-07-15 14:47] VITALS: BP 113/76
[2019-07-15] MEDS: GABAPENTIN 300 MG CAPSULE. PO SCH (20:40)
--- NOTE | 2019-07-15 21:42 | PDOC ---
Exam Note: Anthony Note: Please also refer to the separate dictated note~for this date of service dictated separately.~Patient seen individually. Discussed the patient with Nursing staff reviewed the chart.~Reviewed interim history and current functioning. Reviewed vital signs,~Labs/ Radiology~and current medications noted below. Continue current treatment with the changes noted in the dictated addendum note Assessment: Vital Signs/I&O: Vital Signs Date Time Temp Pulse Resp B/P (MAP) Pulse Ox O2 Delivery O2 Flow Rate FiO2 07/15/19 19:20 Room Air 07/15/19 14:47 97.6 93 20 113/76 (88) 97 I & O 07/14/19 07/14/19 07/15/19 15:00 23:00 07:00 Intake Total 250 ml 240 ml 400 ml Balance 250 ml 240 ml 400 ml Current Medications: Meds: Current Medications Medications (Trade) Dose Ordered Sig/Roger Route PRN Reason Start Time Stop Time Status Last Admin Dose Admin Aspirin (Children'S Aspirin) 81 mg DAILY08 PO 07/15/19 08:00 07/15/19 07:59 Levothyroxine Sodium (Synthroid) 100 mcg DAILY06 PO 07/15/19 06:00 07/15/19 05:32 Metoprolol Tartrate (Lopressor) 12.5 mg DAILY PO 07/15/19 09:00 07/15/19 07:59 Pantoprazole Sodium (Protonix) 40 mg DAILYAC PO 07/15/19 07:30 07/15/19 07:59 Magnesium Chloride (Mag Delay) 64 mg DAILY PO 07/15/19 09:00 07/15/19 07:59 Multivitamins/ Calcium (Thera-M Plus) 1 tab DAILY PO 07/15/19 09:00 07/15/19 07:59 Potassium Chloride (Klor-Con) 40 meq DAILYWBKFT PO 07/15/19 08:00 07/15/19 07:59 Levofloxacin (Levaquin) 250 mg DAILY PO 07/15/19 09:00 07/19/19 09:01 07/15/19 07:59 I have reviewed the current psychotropics carefully including drug interactions. Risk benefit ratio favors no change other than as noted in my dictated progress note. Diagnosis: Problems: (1) Anxiety disorder (2) Impulse control disorder (3) Major depressive disorder, recurrent episode (4) UTI (urinary tract infection) (5) Muscle weakness (generalized) (6) Weakness (7) CHF (congestive heart failure) (8) Diverticulitis (9) SHAVON Vallecillo MD Jul 15, 2019 21:42
--- NOTE | 2019-07-15 22:44 | PN ---
DATE: 07/14/2019 PSYCHIATRIC PROGRESS NOTE I had just dictated progress note for date of service 07/14/2019 on this patient under dictation #[id number]. This note in fact is for date of service 07/14/2019 under the since the patient was transferred from the ICU to half-way care and medical record number had changed. This note clarifies this alteration. SHAVON MARQUEZ MD DR: VONDA/kimberly JOB#: [id number] / [id number]
--- NOTE | 2019-07-15 23:11 | NUR ---
Swing Bed Nursing Note: Nursing Problem: Patient admitted to room 103 for PT/OT therapy for gait strengthening, after admission to inpatient hospitalization Cognitive/Behavioral: Patient alert and oriented x 4, able to make needs known. Pain: none at this time Respiratory Status: patients lungs clear to auscultate. SOA with exertion. Remains on room air. Skin: Skin is dry, thin and intact. Bruising right side of arm due to recent fall at [facility]. left ulcer to coccyx- calmoseptine applied to area. Bowel/Bladder Continence: Patient is continent of bowel and bladder with some episodes of stress incontinence noted. LBM 9/4. ADL Functional Status: Patient able to sit onto side of bed without assistance, but does require one person assistance to stand. Patient uses walker and gait belt to ambulate throughout room with standby assist and requires assistance long distances. feeds and toilets self. Able to get first leg up into bed herself but needed assist to get second leg into bed.
[2019-07-16] MEDS: LEVOTHYROXINE 100 MCG TABLET PO SCH (05:10)
[2019-07-16 05:13] VITALS: BP 123/76
[2019-07-16 06:37] LABS: CALCIUM 9.2 mg/dL (8.5-10.1); CREATININE 1.1 mg/dL (0.6-1.0); GFR 46.9; POTASSIUM 4.1 mmol/L (3.5-5.1)
[2019-07-16] MEDS: POLYETHYLENE GLYCOL 3350 17 GM PACKET. PO SCH ×2 (08:00→08:05)
[2019-07-16] MEDS: POTASSIUM CHLORIDE 20 MEQ TABLET.ER. PO SCH (08:02)
[2019-07-16] MEDS: ASPIRIN 81 MG TAB.CHEW PO SCH (08:04)
[2019-07-16] MEDS: levoFLOXacin 250 MG TABLET PO SCH (08:04)
[2019-07-16] MEDS: METOPROLOL TART IMMED RELEASE 25 MG TABLET PO SCH (08:04)
[2019-07-16] MEDS: metroNIDAZOLE 500 MG TABLET PO SCH ×2 (08:04→21:13)
[2019-07-16] MEDS: FERROUS SULFATE 325 MG TABLET. PO SCH ×2 (08:05→14:13)
[2019-07-16] MEDS: LACTOBACILLUS RHAMNOSUS GG 1 CAPSULE. PO SCH ×2 (08:05→21:13)
[2019-07-16] MEDS: PANTOPRAZOLE 40 MG TABLET. PO SCH (08:05)
[2019-07-16] MEDS: MULTIVITAMIN with MINERAL TABLET. PO SCH (08:05)
[2019-07-16] MEDS: MAGNESIUM CHLORIDE ER 64 MG TABLET.ER PO SCH (08:05)
[2019-07-16] MEDS: TRIAMCINOLONE ACETONIDE 0.1% TOPICAL CREAM 15GM TUBE. TP SCH ×2 (08:06→21:00)
[2019-07-16] MEDS: NYSTATIN TOPICAL POWDER 15GM BOTTLE. TP SCH ×2 (08:06→21:00)
--- NOTE | 2019-07-16 11:42 | NUR ---
Swing Bed Daily Note: Nursing Problem: Patient admitted to room 103 for PT/OT therapy for gait strengthening, after admission to inpatient hospitalization Cognitive/Behavioral: Patient alert and oriented x 3, able to make needs known. Pt is pleasant and cooperative; tolerates care well. Pain: none at this time; c/o headache x1, but refused PRN meds Respiratory Status: patients lungs clear to auscultate. SOA with exertion. Remains on room air. Skin: Skin is dry, thin and intact. Bruising right side of arm due to recent fall at [facility]. left ulcer to coccyx- calmoseptine applied to area. Bowel/Bladder Continence: Patient is continent of bowel and bladder, no episodes of stress incontinence noted 07/16 KJ ADL Functional Status: Patient able to sit onto side of bed without assistance but does require one person assistance to stand and pivot to chair and bedside commode. Patient uses walker and gait belt to ambulate throughout room with standby assist and requires assistance long distances. feeds and toilets self. able to get first leg up into bed herself but needed assist to get second leg into bed. Pt working with PT to ambulate longer distances. Fall(s) prior to admission? numerous falls in the past and is placed on fall precautions Admitted from? ICU 5 and [facility], plan is to discharge back to [facility]
[2019-07-16 15:15] VITALS: BP 105/65
--- NOTE | 2019-07-16 18:07 | PDOC ---
Exam Note: Anthony Note: Please also refer to the separate dictated note~for this date of service dictated separately.~Patient seen individually. Discussed the patient with Nursing staff reviewed the chart.~Reviewed interim history and current functioning. Reviewed vital signs,~Labs/ Radiology~and current medications noted below. Continue current treatment with the changes noted in the dictated addendum note Assessment: Vital Signs/I&O: Vital Signs Date Time Temp Pulse Resp B/P (MAP) Pulse Ox O2 Delivery O2 Flow Rate FiO2 07/16/19 15:15 97.5 88 20 105/65 (78) 97 Room Air I & O 07/15/19 07/15/19 07/16/19 15:00 23:00 07:00 Intake Total 480 ml 360 ml 300 ml Balance 480 ml 360 ml 300 ml Labs: Laboratory Tests Test 07/16/19 05:39 Sodium Level 133 mmol/L (136-145) L Potassium Level 4.1 mmol/L (3.5-5.1) Chloride Level 100 mmol/L (98-107) Carbon Dioxide Level 24 mmol/L (21-32) Anion Gap 9 (6-14) Blood Urea Nitrogen 12 mg/dL (7-20) Creatinine 1.1 mg/dL (0.6-1.0) H Estimated GFR (Cockcroft-Gault) 46.9 Glucose Level 89 mg/dL (70-99) Calcium Level 9.2 mg/dL (8.5-10.1) Current Medications: I have reviewed the current psychotropics carefully including drug interactions. Risk benefit ratio favors no change other than as noted in my dictated progress note. Diagnosis: Problems: (1) Anxiety disorder (2) Impulse control disorder (3) Major depressive disorder, recurrent episode SHAVON MARQUEZ MD Jul 16, 2019 18:07
[2019-07-16] MEDS ORDERED: FURO-68 PO (19:05)
[2019-07-16] MEDS ORDERED: ATOR20TA PO (19:05)
[2019-07-16] MEDS ORDERED: METO2.5T PO (19:05)
[2019-07-16] MEDS: ATORVASTATIN CALCIUM 20 MG TABLET PO SCH (21:13)
[2019-07-16] MEDS: GABAPENTIN 300 MG CAPSULE. PO SCH (21:14)
--- NOTE | 2019-07-16 23:19 | NUR ---
Swing Bed Nursing Note: Nursing Problem: Patient admitted to room 103 for PT/OT therapy for gait strengthening, after admission to inpatient hospitalization Cognitive/Behavioral: Patient alert and oriented x 4, able to make needs known. Pain: none at this time Respiratory Status: patients lungs clear to auscultate. SOA with exertion. Remains on room air. Skin: Skin is dry, thin and intact. Bruising right side of arm due to recent fall at [facility]. left ulcer to coccyx- calmoseptine applied to area. Bowel/Bladder Continence: Patient is continent of bowel and bladder with some episodes of stress incontinence noted. LBM 9/5. ADL Functional Status: Patient able to sit onto side of bed without assistance, but does require one person assistance to stand. Patient uses walker and gait belt to ambulate throughout room with standby assist and requires assistance long distances. Able to get first leg up into bed herself but needed assist to get second leg into bed. Pt able to eat independently.
--- NOTE | 2019-07-16 23:46 | PN ---
DATE: 07/15/2019 PSYCHIATRIC PROGRESS NOTE This late entry 07/15/2019 covers elements not covered in my initial note. SUBJECTIVE: I met with the patient in her room. Per nursing report, the patient has been a little more interactive. During the individual visit, we addressed her acceptance of living at [facility] and she states she is more accepting of it than a few days back. She minimizes being depressed. REVIEW OF SYSTEMS: Ambulation impaired with walker. No CV, , pulmonary, eye system symptoms on review. MENTAL STATUS EXAM: Reasonably oriented. Speech is coherent, abstraction fair, computation impaired, language function intact. Mood and affect somewhat dysphoric, though she minimizes this. No suicidal or homicidal ideation. LABORATORY DATA: Labs reviewed. IMPRESSION: Major depressive disorder, recurrent versus adjustment disorder with depressed mood and anxiety, mild cognitive impairment. PLAN: Carefully assess the patient's current psychotropics. Risk/benefit ratio favors no change at this time. She is in shelter care and feels positive about this. SHAVON MARQUEZ MD DR: VONDA/kimberly JOB#: [id number] / [id number]
[2019-07-17] MEDS: LEVOTHYROXINE 100 MCG TABLET PO SCH (05:15)
[2019-07-17 05:39] VITALS: BP 123/80
[2019-07-17] MEDS: MAGNESIUM CHLORIDE ER 64 MG TABLET.ER PO SCH (08:33)
[2019-07-17] MEDS: metroNIDAZOLE 500 MG TABLET PO SCH ×2 (08:33→19:51)
[2019-07-17] MEDS: LACTOBACILLUS RHAMNOSUS GG 1 CAPSULE. PO SCH ×2 (08:33→19:51)
[2019-07-17] MEDS: MULTIVITAMIN with MINERAL TABLET. PO SCH (08:33)
[2019-07-17] MEDS: POTASSIUM CHLORIDE 20 MEQ TABLET.ER. PO SCH (08:34)
[2019-07-17] MEDS: FERROUS SULFATE 325 MG TABLET. PO SCH ×2 (08:34→17:16)
[2019-07-17] MEDS: FUROSEMIDE 40 MG TABLET PO SCH ×2 (08:34→17:16)
[2019-07-17] MEDS: levoFLOXacin 250 MG TABLET PO SCH (08:34)
[2019-07-17] MEDS: ASPIRIN 81 MG TAB.CHEW PO SCH (08:35)
[2019-07-17] MEDS: METOPROLOL TART IMMED RELEASE 25 MG TABLET PO SCH (08:35)
[2019-07-17] MEDS: POLYETHYLENE GLYCOL 3350 17 GM PACKET. PO SCH (08:36)
[2019-07-17] MEDS: metOLazone 2.5 MG TABLET PO SCH (08:36)
[2019-07-17] MEDS: PANTOPRAZOLE 40 MG TABLET. PO SCH (08:36)
[2019-07-17] MEDS: NYSTATIN TOPICAL POWDER 15GM BOTTLE. TP SCH ×2 (08:38→19:51)
[2019-07-17] MEDS: TRIAMCINOLONE ACETONIDE 0.1% TOPICAL CREAM 15GM TUBE. TP SCH ×2 (08:38→19:52)
[2019-07-17 15:54] VITALS: BP 142/77
--- NOTE | 2019-07-17 17:33 | NUR ---
Swing Bed Daily Note: Nursing Problem: Patient admitted to room 103 for PT/OT therapy for gait strengthening, after admission to inpatient hospitalization Cognitive/Behavioral: Patient alert and oriented x 3, able to make needs known. Pain: none at this time Respiratory Status: patients lungs clear to auscultate. SOA with exertion. Remains on room air. Skin: Skin is dry, thin and intact. Bruising right side of arm due to recent fall at [facility]. left ulcer to coccyx- calmoseptine applied to area. Bowel/Bladder Continence: Patient is continent of bowel and bladder with no episodes of stress incontinence noted today. LBM 9/. ADL Functional Status: Patient able to sit onto side of bed without assistance but does require one person assistance to stand and pivot to chair. Patient uses walker and gait belt to ambulate throughout room with standby assist and requires assistance long distances. feeds and toilets self. able to get both legs up into bed herself. dresses herself including socks and shoes Fall(s) prior to admission? numerous falls in the past and is placed on fall precautions Admitted from? ICU 5 and [facility], plan is to discharge back to [facility]
[2019-07-17 19:43] VITALS: BP 135/74
[2019-07-17] MEDS: GABAPENTIN 300 MG CAPSULE. PO SCH (19:51)
[2019-07-17] MEDS: ATORVASTATIN CALCIUM 20 MG TABLET PO SCH (19:51)
--- NOTE | 2019-07-17 22:00 | NUR ---
Swing Bed Nursing Note: Nursing Problem: Patient admitted to room 103 for PT/OT therapy for gait strengthening, after admission to inpatient hospitalization Cognitive/Behavioral: Patient alert and oriented x 4, able to make needs known. Patient can be forgetful. Pain: none at this time Respiratory Status: patients lungs clear to auscultate. SOA with exertion. Remains on room air. Skin: Skin is dry, thin and intact. Bruising right side of arm due to recent fall at [facility]. left ulcer to coccyx- calmoseptine applied to area. Bowel/Bladder Continence: Patient is continent of bowel and bladder with some episodes of stress incontinence noted. LBM 9/6. ADL Functional Status: Patient able to sit onto side of bed without assistance, but does require one person assistance to stand. Patient uses walker and gait belt to ambulate throughout room with standby assist and requires assistance long distances. Able to get first leg up into bed herself but needed assist to get second leg into bed. Pt able to eat independently.
--- NOTE | 2019-07-17 22:11 | PDOC ---
Exam Note: Anthony Note: Please also refer to the separate dictated note~for this date of service dictated separately.~Patient seen individually. Discussed the patient with Nursing staff reviewed the chart.~Reviewed interim history and current functioning. Reviewed vital signs,~Labs/ Radiology~and current medications noted below. Continue current treatment with the changes noted in the dictated addendum note Assessment: Vital Signs/I&O: Vital Signs Date Time Temp Pulse Resp B/P (MAP) Pulse Ox O2 Delivery O2 Flow Rate FiO2 07/17/19 19:44 Room Air 07/17/19 19:43 97.3 18 18 135/74 (94) 94 I & O 07/16/19 07/16/19 07/17/19 14:59 22:59 06:59 Intake Total 240 ml 480 ml 150 ml Balance 240 ml 480 ml 150 ml Current Medications: Meds: Current Medications Medications (Trade) Dose Ordered Sig/Roger Route PRN Reason Start Time Stop Time Status Last Admin Dose Admin Furosemide (Lasix) 40 mg BID94 PO 07/17/19 09:00 07/17/19 17:17 Metolazone (Zaroxolyn) 2.5 mg DAILY PO 07/17/19 09:00 07/17/19 08:38 I have reviewed the current psychotropics carefully including drug interactions. Risk benefit ratio favors no change other than as noted in my dictated progress note. Diagnosis: Problems: (1) Anxiety disorder (2) Impulse control disorder (3) Major depressive disorder, recurrent episode SHAVON MARQUEZ MD Jul 17, 2019 22:11
[2019-07-18 05:06] VITALS: BP 144/89
[2019-07-18] MEDS: LEVOTHYROXINE 100 MCG TABLET PO SCH (05:10)
[2019-07-18] MEDS: POLYETHYLENE GLYCOL 3350 17 GM PACKET. PO SCH (06:58)
[2019-07-18] MEDS: FERROUS SULFATE 325 MG TABLET. PO SCH ×2 (07:51→15:01)
[2019-07-18] MEDS: POTASSIUM CHLORIDE 20 MEQ TABLET.ER. PO SCH (07:51)
[2019-07-18] MEDS: LACTOBACILLUS RHAMNOSUS GG 1 CAPSULE. PO SCH ×2 (07:51→21:09)
[2019-07-18] MEDS: MULTIVITAMIN with MINERAL TABLET. PO SCH (07:51)
[2019-07-18] MEDS: metOLazone 2.5 MG TABLET PO SCH (07:51)
[2019-07-18] MEDS: MAGNESIUM CHLORIDE ER 64 MG TABLET.ER PO SCH (07:52)
[2019-07-18] MEDS: ASPIRIN 81 MG TAB.CHEW PO SCH (07:52)
[2019-07-18] MEDS: levoFLOXacin 250 MG TABLET PO SCH (07:52)
[2019-07-18] MEDS: PANTOPRAZOLE 40 MG TABLET. PO SCH (07:52)
[2019-07-18] MEDS: FUROSEMIDE 40 MG TABLET PO SCH ×2 (07:52→15:01)
[2019-07-18] MEDS: metroNIDAZOLE 500 MG TABLET PO SCH ×2 (07:54→21:09)
[2019-07-18] MEDS: METOPROLOL TART IMMED RELEASE 25 MG TABLET PO SCH (07:54)
[2019-07-18] MEDS: TRIAMCINOLONE ACETONIDE 0.1% TOPICAL CREAM 15GM TUBE. TP SCH ×2 (09:00→21:00)
[2019-07-18] MEDS: NYSTATIN TOPICAL POWDER 15GM BOTTLE. TP SCH ×2 (09:00→21:00)
--- NOTE | 2019-07-18 11:51 | PN ---
DATE: 07/16/2019 This late entry of 07/16/2019 covers elements not covered in my initial note of 07/16/2019. SUBJECTIVE: I met with the patient in the evening of 07/16/2019 and also with the patient's daughter who was visiting the patient. The daughter remarked on the patient's depressive symptoms since being at [facility] being more isolative, but the patient minimized all of this. We processed the life cycle and stage of her life as she needs greater assistance that she should be proud of raising her children and family the way she did, but now it was time to accept a greater help than she has been used to in the past being quite independent. The patient was able to accept this. She is not wanting any antidepressants, even though the daughter felt this may benefit her, but we will continue to reassess. REVIEW OF SYSTEMS: Ambulation impaired with walker. No CV, , pulmonary, eye system symptoms on review. MENTAL STATUS EXAM: Reasonably oriented. Speech is coherent, abstraction fair, computation impaired, language function intact. Mood and affect somewhat depressed, anxious, but she minimizes this. No suicidal or homicidal ideation. LABORATORY DATA: Reviewed. IMPRESSION: Unchanged from initial note. PLAN: No change from initial note. SHAVON MARQUEZ MD DR: VONDA/kimberly JOB#: [id number] / [id number]
[2019-07-18 15:06] VITALS: BP 122/64
--- NOTE | 2019-07-18 20:40 | PDOC ---
Exam Note: Anthony Note: Please also refer to the separate dictated note~for this date of service dictated separately.~Patient seen individually. Discussed the patient with Nursing staff reviewed the chart.~Reviewed interim history and current functioning. Reviewed vital signs,~Labs/ Radiology~and current medications noted below. Continue current treatment with the changes noted in the dictated addendum note Assessment: Vital Signs/I&O: Vital Signs Date Time Temp Pulse Resp B/P (MAP) Pulse Ox O2 Delivery O2 Flow Rate FiO2 07/18/19 19:58 Room Air 07/18/19 15:06 97.7 85 20 122/64 (83) 98 I & O 07/17/19 07/17/19 07/18/19 15:00 23:00 07:00 Intake Total 480 ml 100 ml 120 ml Balance 480 ml 100 ml 120 ml Current Medications: I have reviewed the current psychotropics carefully including drug interactions. Risk benefit ratio favors no change other than as noted in my dictated progress note. Diagnosis: Problems: (1) Major depressive disorder, recurrent episode (2) Impulse control disorder (3) Anxiety disorder (4) Muscle weakness (generalized) SHAVON MARQUEZ MD Jul 18, 2019 20:40
[2019-07-18] MEDS: ATORVASTATIN CALCIUM 20 MG TABLET PO SCH (21:09)
[2019-07-18] MEDS: GABAPENTIN 300 MG CAPSULE. PO SCH (21:09)
[2019-07-18] MEDS: ACETAMINOPHEN 500 MG TABLET PO PRN (21:09)
[2019-07-19 05:13] VITALS: BP 102/58
[2019-07-19] MEDS: LEVOTHYROXINE 100 MCG TABLET PO SCH (05:18)
[2019-07-19] MEDS: ASPIRIN 81 MG TAB.CHEW PO SCH (07:41)
[2019-07-19] MEDS: levoFLOXacin 250 MG TABLET PO SCH (07:41)
[2019-07-19] MEDS: FERROUS SULFATE 325 MG TABLET. PO SCH ×2 (07:41→14:52)
[2019-07-19] MEDS: POTASSIUM CHLORIDE 20 MEQ TABLET.ER. PO SCH (07:41)
[2019-07-19] MEDS: LACTOBACILLUS RHAMNOSUS GG 1 CAPSULE. PO SCH ×2 (07:41→20:27)
[2019-07-19] MEDS: FUROSEMIDE 40 MG TABLET PO SCH ×2 (07:41→14:52)
[2019-07-19] MEDS: metOLazone 2.5 MG TABLET PO SCH (07:41)
[2019-07-19] MEDS: metroNIDAZOLE 500 MG TABLET PO SCH (07:42)
[2019-07-19] MEDS: MAGNESIUM CHLORIDE ER 64 MG TABLET.ER PO SCH (07:42)
[2019-07-19] MEDS: PANTOPRAZOLE 40 MG TABLET. PO SCH (07:42)
[2019-07-19] MEDS: POLYETHYLENE GLYCOL 3350 17 GM PACKET. PO SCH (07:42)
[2019-07-19] MEDS: MULTIVITAMIN with MINERAL TABLET. PO SCH (07:42)
[2019-07-19] MEDS: NYSTATIN TOPICAL POWDER 15GM BOTTLE. TP SCH ×2 (07:44→20:32)
[2019-07-19] MEDS: TRIAMCINOLONE ACETONIDE 0.1% TOPICAL CREAM 15GM TUBE. TP SCH ×2 (07:44→20:32)
[2019-07-19] MEDS: METOPROLOL TART IMMED RELEASE 25 MG TABLET PO SCH (11:03)
[2019-07-19] MEDS: DOCOSANOL 10% TP SCH ×3 (14:00→20:32)
--- NOTE | 2019-07-19 14:53 | PN ---
DATE: 07/17/2019 PSYCHIATRIC PROGRESS NOTE This late entry 07/17/2019 covers elements not covered in my initial note. SUBJECTIVE: I met with the patient evening of 07/17/2019. Overall, per nursing report, the patient is doing reasonably well. She appears somewhat dysphoric at times, minimizes this. I had a lengthy discussion with her about antidepressant. She is not willing for this at this time, feels she is adapting reasonably well, able to understand the change in circumstances that she has been at [facility]. REVIEW OF SYSTEMS: No CV, , pulmonary, eye system symptoms on review. Gait unsteady with walker. MENTAL STATUS EXAM: Reasonably oriented. Speech is coherent, abstraction fair, computation impaired, language function intact. Mood and affect is improved, somewhat dysphoric at times. LABORATORY DATA: Reviewed. IMPRESSION: Unchanged from initial note. PLAN: No change from initial note. MAN James MARQUEZ MD DR: VONDA/kimberly JOB#: [id number] / [id number]
[2019-07-19 18:19] VITALS: BP 142/82
--- NOTE | 2019-07-19 18:48 | PDOC ---
Exam Note: Anthony Note: Please also refer to the separate dictated note~for this date of service dictated separately.~Patient seen individually. Discussed the patient with Nursing staff reviewed the chart.~Reviewed interim history and current functioning. Reviewed vital signs,~Labs/ Radiology~and current medications noted below. Continue current treatment with the changes noted in the dictated addendum note Assessment: Vital Signs/I&O: Vital Signs Date Time Temp Pulse Resp B/P (MAP) Pulse Ox O2 Delivery O2 Flow Rate FiO2 07/19/19 18:19 97.7 91 20 142/82 (102) 94 Room Air I & O 07/18/19 07/18/19 07/19/19 14:59 22:59 06:59 Intake Total 855 ml 480 ml Balance 855 ml 480 ml Current Medications: Meds: Current Medications Medications (Trade) Dose Ordered Sig/Roger Route PRN Reason Start Time Stop Time Status Last Admin Dose Admin Docosanol (Abreva) 1 donald 5XDAY TP 07/19/19 14:00 07/19/19 17:15 I have reviewed the current psychotropics carefully including drug interactions. Risk benefit ratio favors no change other than as noted in my dictated progress note. Diagnosis: Problems: (1) Major depressive disorder, recurrent episode (2) Impulse control disorder (3) Anxiety disorder SHAVON MARQUEZ MD Jul 19, 2019 18:48
[2019-07-19] MEDS: GABAPENTIN 300 MG CAPSULE. PO SCH (20:27)
[2019-07-19] MEDS: ATORVASTATIN CALCIUM 20 MG TABLET PO SCH (20:27)
--- NOTE | 2019-07-19 21:47 | PN ---
DATE: 07/18/2019 PSYCHIATRIC PROGRESS NOTE This late entry 07/18/2019 covers elements not covered in my initial note. SUBJECTIVE: I met with the patient evening of 07/18/2019. I met with the patient in her room. She states she has been involved with physical therapy, feels a little bit stronger. We discussed at length about her acceptance of going back to [facility] and she is agreeable to this. She gets a little dysphoric talking about this, but much better than before. She minimizes being depressed. REVIEW OF SYSTEMS: Ambulation impaired. No CV, , pulmonary, eye, ENT system symptoms on review. MENTAL STATUS EXAM: Reasonably oriented. Speech has some latency, coherent, very pleasant, verbal, interactive, abstraction fair, computation somewhat impaired, language function intact. Mood and affect is improved. No suicidal ideation. LABORATORY DATA: Reviewed. IMPRESSION: Major depressive disorder, recurrent, in partial remission, adjustment disorder with depressed mood. Rest unchanged. PLAN: From a psychiatric standpoint, I would not recommend anything different. At this time, the patient prefers to be on no change of her psychotropics and we will leave it unchanged for now. MAN James MARQUEZ MD DR: VONDA/kimberly JOB#: [id number] / [id number]
--- NOTE | 2019-07-20 05:00 | PN ---
DATE: SUBJECTIVE: The patient is on the skilled unit. She is an 89-year-old female who has been making good progress on skilled unit. She has been very tired and weak. She is receiving PT, OT. The patient otherwise has been making good progress with her depression and anxiety disorder. OBJECTIVE: VITAL SIGNS: Otherwise, vital signs remain basically stable with BP at 130/80, respiratory rate 22, pulse 80, afebrile. GENERAL: The patient is alert and oriented. LUNGS: Diminished throughout, poor movement of air. CARDIOVASCULAR: Regular sinus rhythm, occasional dropped beat, 1/6 systolic ejection murmur. ABDOMEN: Protuberant, soft, nontender. NEUROLOGIC: The patient is alert and oriented x 3, although somewhat depressed. She has been seen by Psychiatry as well for that situation and make further evaluation on her as indicated. Continue with skilled care and physical and occupational therapy. If she has any fever blister, ____. MARTINEZ MONTOYA MD DR: LILI/kimberly JOB#: [id number] / [id number]
[2019-07-20] MEDS: DOCOSANOL 10% TP SCH ×5 (06:00→20:20)
[2019-07-20 06:20] VITALS: BP 125/76
[2019-07-20] MEDS: LEVOTHYROXINE 100 MCG TABLET PO SCH (06:28)
[2019-07-20] MEDS: PANTOPRAZOLE 40 MG TABLET. PO SCH (07:23)
[2019-07-20] MEDS: FERROUS SULFATE 325 MG TABLET. PO SCH ×2 (08:11→14:06)
[2019-07-20] MEDS: metOLazone 2.5 MG TABLET PO SCH (08:11)
[2019-07-20] MEDS: FUROSEMIDE 40 MG TABLET PO SCH ×2 (08:11→14:07)
[2019-07-20] MEDS: MULTIVITAMIN with MINERAL TABLET. PO SCH (08:12)
[2019-07-20] MEDS: ASPIRIN 81 MG TAB.CHEW PO SCH (08:12)
[2019-07-20] MEDS: POTASSIUM CHLORIDE 20 MEQ TABLET.ER. PO SCH (08:12)
[2019-07-20] MEDS: METOPROLOL TART IMMED RELEASE 25 MG TABLET PO SCH (08:12)
[2019-07-20] MEDS: TRIAMCINOLONE ACETONIDE 0.1% TOPICAL CREAM 15GM TUBE. TP SCH ×2 (08:13→20:18)
[2019-07-20] MEDS: POLYETHYLENE GLYCOL 3350 17 GM PACKET. PO SCH (08:13)
[2019-07-20] MEDS: NYSTATIN TOPICAL POWDER 15GM BOTTLE. TP SCH ×2 (08:13→20:18)
[2019-07-20] MEDS: MAGNESIUM CHLORIDE ER 64 MG TABLET.ER PO SCH (08:21)
[2019-07-20] MEDS: LACTOBACILLUS RHAMNOSUS GG 1 CAPSULE. PO SCH ×2 (08:21→20:18)
[2019-07-20 08:32] VITALS: BP 177/94
[2019-07-20 15:11] VITALS: BP 123/68
--- NOTE | 2019-07-20 18:54 | PDOC ---
Exam Note: Anthony Note: Please also refer to the separate dictated note~for this date of service dictated separately.~Patient seen individually. Discussed the patient with Nursing staff reviewed the chart.~Reviewed interim history and current functioning. Reviewed vital signs,~Labs/ Radiology~and current medications noted below. Continue current treatment with the changes noted in the dictated addendum note Assessment: Vital Signs/I&O: Vital Signs Date Time Temp Pulse Resp B/P (MAP) Pulse Ox O2 Delivery O2 Flow Rate FiO2 07/20/19 15:11 97.7 75 18 123/68 (86) 97 Room Air I & O 07/19/19 07/19/19 07/20/19 15:00 23:00 07:00 Intake Total 940 ml 240 ml Balance 940 ml 240 ml Current Medications: I have reviewed the current psychotropics carefully including drug interactions. Risk benefit ratio favors no change other than as noted in my dictated progress note. Diagnosis: Problems: (1) Major depressive disorder, recurrent episode (2) Impulse control disorder (3) Anxiety disorder SHAVON MARQUEZ MD Jul 20, 2019 18:54
[2019-07-20] MEDS: ACETAMINOPHEN 500 MG TABLET PO PRN (20:18)
[2019-07-20] MEDS: ATORVASTATIN CALCIUM 20 MG TABLET PO SCH (20:18)
[2019-07-20] MEDS: GABAPENTIN 300 MG CAPSULE. PO SCH (20:18)
--- NOTE | 2019-07-20 23:50 | NUR ---
Swing Bed Daily Note: Nursing Problem: Patient admitted to room 103 for PT/OT therapy for gait strengthening, after admission to inpatient hospitalization for weakness, Potassium of 2.0 and Diarrhea Cognitive/Behavioral: Patient alert and oriented x 3. Pt is able to make needs known and uses call light appropriately. Pt is very pleasant with all cares and assessments. Pt was awake in bed and change of shift watching TV. Pain: Pt denies c/o pain at this time. Respiratory Status: Lungs clear to auscultate. Denies cough but does c/o SOA with exertion. Pt is on room air. Skin: Skin is dry, thin and intact. Bruising noted to bilateral upper extremities due to recent fall at [facility]. Pt with left ulcer to coccyx- Calmoseptine applied to area. Wound care is consulted. Bowel/Bladder Continence: Patient is continent of bowel and bladder with no episodes of stress incontinence noted today. Pt also stated that her diarrhea is much improved. LBM 9/9. ADL Functional Status: Pt able to sit on side of bed without assistance but does require x1 assist to stand from bed, chair or toilet. Pt uses walker and gait belt to ambulate throughout room with standby assist and requires x1 assistance with long distances. Pt is able to feed self and takes medications whole. Pt able to get both legs up into bed herself. Pt is able to dress herself including socks and shoes
--- NOTE | 2019-07-21 00:57 | PN ---
DATE: 07/20/2019 PSYCHIATRIC PROGRESS NOTE This late entry, 07/19, covers elements not covered in my initial note. SUBJECTIVE: I met with the patient evening of 07/19 in her room. Per nursing staff, the patient has been fairly cooperative, minimizes being depressed. REVIEW OF SYSTEMS: No CV, , pulmonary, eye system symptoms on review. Gait is improving with a walker. MENTAL STATUS EXAM: Oriented reasonably. Speech is coherent, abstraction fair, computation impaired, language function intact. Mood and affect is improved. IMPRESSION: Unchanged from initial note. PLAN: No change from initial note. MAN James MARQUEZ MD DR: VONDA/kimberly JOB#: [id number] / [id number]
[2019-07-21 05:20] VITALS: BP 113/71
[2019-07-21] MEDS: DOCOSANOL 10% TP SCH ×5 (06:00→20:04)
[2019-07-21] MEDS: LEVOTHYROXINE 100 MCG TABLET PO SCH (06:00)
[2019-07-21] MEDS: ASPIRIN 81 MG TAB.CHEW PO SCH (07:26)
[2019-07-21] MEDS: PANTOPRAZOLE 40 MG TABLET. PO SCH (07:26)
[2019-07-21] MEDS: POTASSIUM CHLORIDE 20 MEQ TABLET.ER. PO SCH (07:26)
[2019-07-21] MEDS: POLYETHYLENE GLYCOL 3350 17 GM PACKET. PO SCH (07:32)
[2019-07-21] MEDS: metOLazone 2.5 MG TABLET PO SCH (08:27)
[2019-07-21] MEDS: MULTIVITAMIN with MINERAL TABLET. PO SCH (08:27)
[2019-07-21] MEDS: MAGNESIUM CHLORIDE ER 64 MG TABLET.ER PO SCH (08:27)
[2019-07-21] MEDS: FERROUS SULFATE 325 MG TABLET. PO SCH ×2 (08:27→13:47)
[2019-07-21] MEDS: LACTOBACILLUS RHAMNOSUS GG 1 CAPSULE. PO SCH ×2 (08:27→20:01)
[2019-07-21] MEDS: NYSTATIN TOPICAL POWDER 15GM BOTTLE. TP SCH ×2 (08:28→20:02)
[2019-07-21] MEDS: FUROSEMIDE 40 MG TABLET PO SCH ×2 (08:28→13:47)
[2019-07-21] MEDS: TRIAMCINOLONE ACETONIDE 0.1% TOPICAL CREAM 15GM TUBE. TP SCH ×2 (08:28→20:03)
[2019-07-21] MEDS: METOPROLOL TART IMMED RELEASE 25 MG TABLET PO SCH (08:29)
--- NOTE | 2019-07-21 16:20 | NUR ---
Swing Bed Daily Note: Nursing Problem: Patient admitted for PT/OT therapy for gait strengthening, after admission to inpatient hospitalization Cognitive/Behavioral: Patient alert and oriented x 3, able to make needs known. Pain: none at this time Respiratory Status: patients lungs clear to auscultate. SOA with exertion which is improving with long ambulations. room air. Skin: Skin is dry, thin and intact. Bruising right side of arm due to recent fall at [facility]. ulcer to left buttocks cleft- calmoseptine applied to area. Bowel/Bladder Continence: Patient is continent of bowel and bladder with no episodes of stress incontinence noted today. LBM 9/10. ADL Functional Status: Patient able to sit onto side of bed without assistance. able to get out of chair without assist. Patient uses walker and gait belt to ambulate throughout room with standby and requires assistance long distances. feeds and toilets self. able to get both legs up into bed herself. dresses herself including socks and shoes Fall(s) prior to admission? numerous falls in the past and is placed on fall precautions Admitted from? ICU 5 and [facility], plan is to discharge back to [facility]
[2019-07-21 18:20] VITALS: BP 144/90
--- NOTE | 2019-07-21 18:26 | PDOC ---
Exam Note: Anthony Note: Please also refer to the separate dictated note~for this date of service dictated separately.~Patient seen individually. Discussed the patient with Nursing staff reviewed the chart.~Reviewed interim history and current functioning. Reviewed vital signs,~Labs/ Radiology~and current medications noted below. Continue current treatment with the changes noted in the dictated addendum note Assessment: Vital Signs/I&O: Vital Signs Date Time Temp Pulse Resp B/P (MAP) Pulse Ox O2 Delivery O2 Flow Rate FiO2 07/21/19 18:20 97.9 90 18 144/90 (108) 97 Room Air I & O 07/20/19 07/20/19 07/21/19 15:00 23:00 07:00 Intake Total 720 ml 700 ml 250 ml Balance 720 ml 700 ml 250 ml Current Medications: I have reviewed the current psychotropics carefully including drug interactions. Risk benefit ratio favors no change other than as noted in my dictated progress note. Diagnosis: Problems: (1) Impulse control disorder (2) Anxiety disorder (3) Major depressive disorder, recurrent episode (4) CHF (congestive heart failure) (5) Weakness SHAVON MARQUEZ MD Jul 21, 2019 18:26
[2019-07-21] MEDS: ATORVASTATIN CALCIUM 20 MG TABLET PO SCH (20:01)
[2019-07-21] MEDS: ACETAMINOPHEN 500 MG TABLET PO PRN (20:01)
[2019-07-21] MEDS: GABAPENTIN 300 MG CAPSULE. PO SCH (20:01)
--- NOTE | 2019-07-21 22:36 | NUR ---
Swing Bed Daily Note: Nursing Problem: PT admitted for PT/OT therapy for gait strengthening following admission to inpatient hospitalization Cognitive/Behavioral: PT alert and oriented x2-3. Pain: None at this time Respiratory Status: CTA. SOA with exertion, improving with long ambulations. RA. Skin: Skin is dry, thin and intact. Bruising to RT side of arm due to recent fall at [facility]. Ulcer to left buttocks cleft - calmoseptine applied to area. Bowel/Bladder Continence: PT is continent of bowel and bladder with occasional stress incontinence. LBM 9/10. ADL Functional Status: PT able to sit on side of bed without assistance, able to get out of chair without assist. PT uses walker and gait belt to ambulate throughout room with standby and requires assistance for long distances. PT feeds and toilets self, able to get both legs up into bed herself and dresses herself including socks and shoes. Fall(s) prior to admission? Numerous falls in the past and is placed on fall precautions Admitted from? ICU and [facility], plan is to discharge back to [facility].
--- NOTE | 2019-07-22 01:19 | PN ---
DATE: 07/20/2019 PSYCHIATRIC PROGRESS NOTE This is a late entry 07/20/2019 covers the elements not covered in my initial note 07/20/2019. SUBJECTIVE: I met with the patient at length in her room. She states she is doing better. Denies and minimizes being depressed. She was very verbal, talking about growing up in [place] in a family of 7 siblings. She talked about the frigid temperatures. At times having to take her horse and wagon going to school to go to school because the cars could not drive on the slick roads and the school was about 10 miles away. She talked about how she got frostbitten in her ear and it still hurts her when it gets cold exposure, talked about how her father would drive on very narrow and slick roads and she was fearful of the whole family tumbling into the ravine. Quite graphic, animated as she talked about this and seemed to perk up her spirits. I did talk to the nursing staff and also told the patient that it might be nice to put some of her memories either on a Dictaphone or a recorder or a video that the grandchildren and other family members could preserve after she passes away in time. This also would make her active and have a purpose while she is at [facility]. She was initially dismissive about this, but later accepting. With respect to depression, she minimizes and again prefers no antidepressants. Nursing staff will share the above with her daughter to help facilitate this happening. REVIEW OF SYSTEMS: Ambulation impaired with walker. No CV, , pulmonary, eye system symptoms on review. MENTAL STATUS EXAM: Reasonably oriented. Speech is coherent, very pleasant, verbal, open, forthcoming, abstraction fair, computation impaired, language function intact. Mood and affect is improved. LABORATORY DATA: Reviewed. IMPRESSION: Adjustment disorder with depressed mood and anxiety; history of major depressive disorder; anxiety disorder, unspecified. PLAN: I have carefully reviewed her current psychotropics. No changes for now. We will continue to reassess. MAN James MARQUEZ MD DR: VONDA/kimberly JOB#: [id number] / [id number]
[2019-07-22 05:38] VITALS: BP 138/80
[2019-07-22] MEDS: DOCOSANOL 10% TP SCH ×5 (06:00→20:21)
[2019-07-22] MEDS: LEVOTHYROXINE 100 MCG TABLET PO SCH (06:32)
[2019-07-22] MEDS: NYSTATIN TOPICAL POWDER 15GM BOTTLE. TP SCH ×2 (09:00→20:21)
[2019-07-22] MEDS: TRIAMCINOLONE ACETONIDE 0.1% TOPICAL CREAM 15GM TUBE. TP SCH ×2 (09:00→20:21)
[2019-07-22] MEDS: ASPIRIN 81 MG TAB.CHEW PO SCH (09:42)
[2019-07-22] MEDS: FUROSEMIDE 40 MG TABLET PO SCH ×2 (09:42→14:17)
[2019-07-22] MEDS: LACTOBACILLUS RHAMNOSUS GG 1 CAPSULE. PO SCH ×2 (09:42→20:20)
[2019-07-22] MEDS: PANTOPRAZOLE 40 MG TABLET. PO SCH (09:42)
[2019-07-22] MEDS: metOLazone 2.5 MG TABLET PO SCH (09:42)
[2019-07-22] MEDS: METOPROLOL TART IMMED RELEASE 25 MG TABLET PO SCH (09:43)
[2019-07-22] MEDS: MAGNESIUM CHLORIDE ER 64 MG TABLET.ER PO SCH (09:43)
[2019-07-22] MEDS: FERROUS SULFATE 325 MG TABLET. PO SCH ×2 (09:43→14:17)
[2019-07-22] MEDS: MULTIVITAMIN with MINERAL TABLET. PO SCH (09:43)
[2019-07-22] MEDS: POTASSIUM CHLORIDE 20 MEQ TABLET.ER. PO SCH (09:43)
[2019-07-22] MEDS: POLYETHYLENE GLYCOL 3350 17 GM PACKET. PO SCH (09:43)
--- NOTE | 2019-07-22 12:59 | NUR ---
Swing Bed Daily Note: Nursing Problem: PT admitted for PT/OT therapy for gait strengthening following admission to inpatient hospitalization Cognitive/Behavioral: PT alert and oriented x2-3 with some confused noted at times. No behaviors noted. Patient has been calm and cooperative with staff and works with therapy to meet her needs. Pain: Denies pain or discomfort so far this shift. Respiratory Status: CTA. SOA with exertion, improving with long ambulations. Remains on RA. Skin: Skin is dry, thin and intact. Bruising to RT side of arm due to recent fall at [facility]. Ulcer to left buttocks - calmoseptine applied to area daily and as needed. Bowel/Bladder Continence: PT is continent of bowel and bladder with occasional stress incontinence. LBM 9/10. Able to take self to the bathroom. ADL Functional Status: PT able to sit on side of bed without assistance, able to get out of chair without assist. PT uses walker and gait belt to ambulate throughout room with standby and requires assistance for long distances. PT feeds and toilets self, able to get both legs up into bed herself and dresses herself including socks and shoes. Fall(s) prior to admission? Numerous falls in the past and is placed on fall precautions Admitted from? ICU and [facility], plan is to discharge back to [facility].
[2019-07-22 16:30] LABS: BASO # 0.1 x10^3/uL (0.0-0.2); BASO % 1 % (0-3); EOS # 0.1 x10^3/uL (0.0-0.7); EOS % 2 % (0-3); HEMOGLOBIN 13.7 g/dL (12.0-15.5); LYMPH # 1.4 x10^3/uL (1.0-4.8); LYMPH % 16 % (24-48); MEAN CORPUSCULAR HEMOGLOBIN 28 pg (25-35); MEAN CORPUSCULAR HGB CONC 34 g/dL (31-37); MEAN CORPUSCULAR VOLUME 84 fL (79-100); MONO # 0.6 x10^3/uL (0.0-1.1); MONO % 7 % (0-9); NEUT # 6.7 x10^3uL (1.8-7.7); NEUT % 75 % (31-73); PLATELET COUNT 287 x10^3/uL (140-400); RED BLOOD COUNT 4.87 x10^6/uL (3.50-5.40); RED CELL DISTRIBUTION WIDTH 15.8 % (11.5-14.5); WHITE BLOOD COUNT 8.9 x10^3/uL (4.0-11.0)
[2019-07-22 16:41] LABS: CALCIUM 9.1 mg/dL (8.5-10.1); CREATININE 1.4 mg/dL (0.6-1.0); GFR 35.5
[2019-07-22 16:50] LABS: POTASSIUM 2.5 mmol/L (3.5-5.1)
[2019-07-22] MEDS: POTASSIUM CHLORIDE 20 MEQ PACKET. PO SCH ×3 (17:39→22:17)
--- NOTE | 2019-07-22 17:41 | NUR ---
Spoke with Dr. Martinez in regards to critical results, orders to do electrolyte protocol and recheck labs tonight. Patient took first dose of 40meq at this time. Also spoke with patient and dietary about decreased appetite, will start Marinol per Dr Martinez.
[2019-07-22 17:57] VITALS: BP 121/79
[2019-07-22] MEDS: ATORVASTATIN CALCIUM 20 MG TABLET PO SCH (20:20)
[2019-07-22] MEDS: GABAPENTIN 300 MG CAPSULE. PO SCH (20:20)
--- NOTE | 2019-07-22 20:57 | NUR ---
Swing Bed Daily Note: Nursing Problem: PT admitted for PT/OT therapy for gait strengthening following admission to inpatient hospitalization Cognitive/Behavioral: PT alert and oriented x3, disoriented on date (consistent for PT), confused at times, easily redirectable. No behaviors noted. Patient has been calm and cooperative with staff. Pain: Denies pain or discomfort. Respiratory Status: CTA. SOA with exertion, improving with long ambulations. Remains on RA. Skin: Skin is dry, thin and intact. Bruising to RT side of arm due to recent fall at [facility]. Ulcer to left buttocks - calmoseptine applied to area daily and as needed. Bowel/Bladder Continence: PT is continent of bowel and bladder with occasional stress incontinence. LBM 9/10. Able to take self to the bathroom. ADL Functional Status: PT able to sit on side of bed without assistance, able to get out of chair without assist. PT uses walker and gait belt to ambulate throughout room with standby and requires assistance for long distances. PT feeds and toilets self, able to get both legs up into bed herself and dresses herself including socks and shoes. Fall(s) prior to admission? Numerous falls in the past and is placed on fall precautions. Admitted from? ICU and [facility], plan is to discharge back to [facility].
--- NOTE | 2019-07-22 21:02 | PDOC ---
Exam Note: Anthony Note: Please also refer to the separate dictated note~for this date of service dictated separately.~Patient seen individually. Discussed the patient with Nursing staff reviewed the chart.~Reviewed interim history and current functioning. Reviewed vital signs,~Labs/ Radiology~and current medications noted below. Continue current treatment with the changes noted in the dictated addendum note Assessment: Vital Signs/I&O: Vital Signs Date Time Temp Pulse Resp B/P (MAP) Pulse Ox O2 Delivery O2 Flow Rate FiO2 07/22/19 20:28 Room Air 07/22/19 17:57 97.9 76 18 121/79 (93) 95 I & O 07/21/19 07/21/19 07/22/19 14:59 22:59 06:59 Intake Total 720 ml 1040 ml Balance 720 ml 1040 ml Labs: Laboratory Tests Test 07/22/19 16:20 White Blood Count 8.9 x10^3/uL (4.0-11.0) Red Blood Count 4.87 x10^6/uL (3.50-5.40) Hemoglobin 13.7 g/dL (12.0-15.5) Hematocrit 41.0 % (36.0-47.0) Mean Corpuscular Volume 84 fL (79-100) Mean Corpuscular Hemoglobin 28 pg (25-35) Mean Corpuscular Hemoglobin Concent 34 g/dL (31-37) Red Cell Distribution Width 15.8 % (11.5-14.5) H Platelet Count 287 x10^3/uL (140-400) Neutrophils (%) (Auto) 75 % (31-73) H Lymphocytes (%) (Auto) 16 % (24-48) L Monocytes (%) (Auto) 7 % (0-9) Eosinophils (%) (Auto) 2 % (0-3) Basophils (%) (Auto) 1 % (0-3) Neutrophils # (Auto) 6.7 x10^3uL (1.8-7.7) Lymphocytes # (Auto) 1.4 x10^3/uL (1.0-4.8) Monocytes # (Auto) 0.6 x10^3/uL (0.0-1.1) Eosinophils # (Auto) 0.1 x10^3/uL (0.0-0.7) Basophils # (Auto) 0.1 x10^3/uL (0.0-0.2) Sodium Level 132 mmol/L (136-145) L Potassium Level 2.5 mmol/L (3.5-5.1) *L Chloride Level 87 mmol/L (98-107) L Carbon Dioxide Level 38 mmol/L (21-32) H Anion Gap 7 (6-14) Blood Urea Nitrogen 31 mg/dL (7-20) H Creatinine 1.4 mg/dL (0.6-1.0) H Estimated GFR (Cockcroft-Gault) 35.5 Glucose Level 128 mg/dL (70-99) H Calcium Level 9.1 mg/dL (8.5-10.1) Current Medications: Meds: Current Medications Medications (Trade) Dose Ordered Sig/Roger Route PRN Reason Start Time Stop Time Status Last Admin Dose Admin Potassium Chloride (Klor-Con Packet) 40 meq Q2HR PO 07/22/19 18:00 07/22/19 22:01 07/22/19 20:21 I have reviewed the current psychotropics carefully including drug interactions. Risk benefit ratio favors no change other than as noted in my dictated progress note. Diagnosis: Problems: (1) Anxiety disorder (2) Impulse control disorder (3) Major depressive disorder, recurrent episode (4) Diverticulitis (5) CHF (congestive heart failure) (6) Weakness (7) UTI (urinary tract infection) (8) Fall (9) Muscle weakness (generalized) SHAVON MAQRUEZ MD Jul 22, 2019 21:02
--- NOTE | 2019-07-23 00:50 | PN ---
DATE: 07/21/2019 PSYCHIATRIC PROGRESS NOTE This late entry of 07/21/2019 covers the elements not covered in my initial note. SUBJECTIVE: I met with the patient at length the evening of 07/21/2019. She remains somewhat withdrawn, but as was evident on the day before, she was very verbal, interactive, pleasant, talking about growing up in [place] under adverse conditions, quite animated about this. Again, she denies being depressed and nursing staff will follow up with the daughter about recording some of her experiences verbally on a Dictaphone or video that would involve the patient's stimulator intellectually and perhaps give a different perception of life to her grandchildren and great grandchildren as passing down the family tree. REVIEW OF SYSTEMS: No CV, , pulmonary, eye system symptoms on review. Gait unsteady with walker. MENTAL STATUS EXAM: Reasonably oriented. Speech is coherent, abstraction fair, computation impaired, language function intact. Mood and affect appears reasonably stable and she is cooperating with physical therapy rehab. LABORATORY DATA: Reviewed. IMPRESSION: Unchanged from initial note. PLAN: No change from initial note. SHAVON MARQUEZ MD DR: VONDA/kimberly JOB#: [id number] / [id number]
[2019-07-23 05:56] VITALS: BP 142/81
[2019-07-23] MEDS: LEVOTHYROXINE 100 MCG TABLET PO SCH (06:00)
[2019-07-23] MEDS: DOCOSANOL 10% TP SCH ×5 (06:00→20:22)
[2019-07-23 06:58] LABS: CREATININE 1.3 mg/dL (0.6-1.0); GFR 38.7
[2019-07-23 07:04] LABS: POTASSIUM 2.9 mmol/L (3.5-5.1)
[2019-07-23] MEDS: PANTOPRAZOLE 40 MG TABLET. PO SCH ×2 (07:38→09:00)
[2019-07-23] MEDS: MAGNESIUM CHLORIDE ER 64 MG TABLET.ER PO SCH (07:38)
[2019-07-23] MEDS: ASPIRIN 81 MG TAB.CHEW PO SCH (07:38)
[2019-07-23] MEDS: LACTOBACILLUS RHAMNOSUS GG 1 CAPSULE. PO SCH ×2 (07:39→20:21)
[2019-07-23] MEDS: FERROUS SULFATE 325 MG TABLET. PO SCH ×2 (07:39→17:35)
[2019-07-23] MEDS: POTASSIUM CHLORIDE 20 MEQ TABLET.ER. PO SCH ×3 (07:39→11:00)
[2019-07-23] MEDS: MULTIVITAMIN with MINERAL TABLET. PO SCH (07:39)
[2019-07-23] MEDS: METOPROLOL TART IMMED RELEASE 25 MG TABLET PO SCH (07:39)
[2019-07-23] MEDS: POLYETHYLENE GLYCOL 3350 17 GM PACKET. PO SCH (07:40)
[2019-07-23] MEDS: NYSTATIN TOPICAL POWDER 15GM BOTTLE. TP SCH ×2 (07:40→20:22)
[2019-07-23] MEDS: TRIAMCINOLONE ACETONIDE 0.1% TOPICAL CREAM 15GM TUBE. TP SCH ×2 (07:41→20:22)
[2019-07-23] MEDS: FUROSEMIDE 40 MG TABLET PO SCH (07:51)
[2019-07-23] MEDS: metOLazone 2.5 MG TABLET PO SCH (07:51)
[2019-07-23] MEDS ORDERED: POLYETHYLENE GLYCOL 3350 17 GM PACKET. PO PRN (08:00)
[2019-07-23] MEDS ORDERED: FUROSEMIDE 40 MG TABLET PO SCH (09:00)
[2019-07-23] MEDS: DRONABINOL 2.5 MG CAPSULE PO SCH ×2 (11:00→17:35)
--- NOTE | 2019-07-23 11:01 | NUR ---
Patient and aide report no diarrhea, not able to complete cdiff. patient had soft bowel movement today.
[2019-07-23 14:28] LABS: CALCIUM 9.2 mg/dL (8.5-10.1); CREATININE 1.3 mg/dL (0.6-1.0); GFR 38.7; POTASSIUM 4.3 mmol/L (3.5-5.1)
--- NOTE | 2019-07-23 15:00 | NUR ---
Swing Bed Daily Note: Nursing Problem: PT admitted for PT/OT therapy for gait strengthening following admission to inpatient hospitalization Cognitive/Behavioral: PT alert and oriented x3, disoriented on date (consistent for PT), confused at times, easily redirectable. No behaviors noted. Patient has been calm and cooperative with staff. Pain: Denies pain or discomfort. Respiratory Status: CTA. SOA with exertion, improving with long ambulations. Remains on RA. Skin: Skin is dry, thin and intact. Bruising to RT side of arm due to recent fall at [facility]. Ulcer to left buttocks - new order to start nystatin cream twice a day. Bowel/Bladder Continence: PT is continent of bowel and bladder with occasional stress incontinence. LBM 9/12, patient and aide report soft formed stools, miralax held this am. Able to take self to the bathroom. ADL Functional Status: PT able to sit on side of bed without assistance, able to get out of chair without assist. PT uses walker and gait belt to ambulate throughout room with standby and requires assistance for long distances. PT feeds and toilets self, able to get both legs up into bed herself and dresses herself including socks and shoes. Fall(s) prior to admission? Numerous falls in the past and is placed on fall precautions. Patient on electrolyte protocol, potassium replaced this AM and labs rechecked. Patient states she feels tired and decreased appetite but no other complaints. Admitted from? ICU and [facility], plan is to discharge back to [facility].
--- NOTE | 2019-07-23 15:57 | NUR ---
wound care patient seen per wound follow up. see wound assessment. patient has a stage 3 pressure ulcer to the left buttock with reddened rash present in gluteal fold around wound, the wound was cleaned and redressed with Calazime cream mixed with nystatin powder at this time. recommendations of continuing with Nystatin cream BID. patient needs to be turning every 2 hours while in bed and using wheelchair cushion. notified KRISSY De La Torre about the POC and wound care will continue to f/u for changes.
[2019-07-23 18:18] VITALS: BP 134/80
--- NOTE | 2019-07-23 19:40 | NUR ---
Swing Bed Daily Note: Nursing Problem: Patient admitted to room 103 for PT/OT therapy for gait strengthening, after admission to inpatient hospitalization for weakness, Potassium of 2.0 and Diarrhea Cognitive/Behavioral: Patient alert and oriented x 3. Pt is able to make needs known and uses call light appropriately. Pt is very pleasant with all cares and assessments. Pt was awake in bed and change of shift watching TV. Pt stated that she had a good ay and seemed excited about going [facility] to [facility] soon. Pain: Pt denies c/o pain at this time. Respiratory Status: Lungs clear to auscultate. Denies cough but does c/o SOA with exertion. Pt is on room air. Skin: Skin is dry, thin and intact. Bruising noted to bilateral upper extremities due to recent fall. Pt with left ulcer to coccyx- Calmoseptine & Nystatin applied to area. Wound care is consulted and saw today. Bowel/Bladder Continence: Patient is continent of bowel and bladder with no episodes of stress incontinence noted today. Pt denies diarrhea. LBM 07/23. ADL Functional Status: Pt able to sit on side of bed without assistance but does require x1 assist to stand from bed, chair or toilet. Pt uses walker and gait belt to ambulate throughout room and to bathroom with standby assist. Pt is able to feed self and takes medications whole. Pt able to get both legs up into bed herself but done one at a time. Pt is able to dress herself including socks and shoes.
[2019-07-23] MEDS: GABAPENTIN 300 MG CAPSULE. PO SCH (20:21)
[2019-07-23] MEDS: ACETAMINOPHEN 500 MG TABLET PO PRN (20:21)
[2019-07-23] MEDS: NYSTATIN 100,000 UNIT/GM TOPICAL CREAM 15GM TUBE. TP SCH (20:23)
--- NOTE | 2019-07-23 21:37 | PN ---
DATE: 07/23/2019 SUBJECTIVE: An 89-year-old female patient had generalized weakness, failure to thrive. The patient is making good progress. She is not having any further abdominal pain. She has been having intermittent diarrhea and we will continue to monitor on that. She did have a history of diverticulitis. Otherwise, her potassium has been up and down depending on how much she diureses. Otherwise, if she do not diureses, she swells up and when we do that, her potassium drops, but otherwise will make adjustments on her medications for that. She is on electrolyte protocol. OBJECTIVE: VITAL SIGNS: Blood pressure 140/80, respiratory rate 18, pulse 95, afebrile. GENERAL: The patient is alert and oriented. LUNGS: Diminished, but clear. CARDIOVASCULAR: Stable. ABDOMEN: Soft, nontender, no rebound or guarding. Positive bowel sounds. PLAN: The patient continued to be monitored carefully, make further evaluation on her as indicated. Blood pressure 142/80, pulse 90, respiratory rate 18, afebrile. Exam as noted above. IMPRESSION: Diverticulitis, hypokalemia, peripheral edema, hypertension, morbid obesity, mild dementia, severe depression. Dr. Alvarez is also reviewing the patient as well. MARTINEZ MONTOYA MD DR: LILI/kimberly JOB#: [id number] / [id number]
--- NOTE | 2019-07-23 21:52 | PDOC ---
Exam Note: Anthony Note: Please also refer to the separate dictated note~for this date of service dictated separately.~Patient seen individually. Discussed the patient with Nursing staff reviewed the chart.~Reviewed interim history and current functioning. Reviewed vital signs,~Labs/ Radiology~and current medications noted below. Continue current treatment with the changes noted in the dictated addendum note Assessment: Vital Signs/I&O: Vital Signs Date Time Temp Pulse Resp B/P (MAP) Pulse Ox O2 Delivery O2 Flow Rate FiO2 07/23/19 19:40 Room Air 07/23/19 18:18 98.0 98 18 134/80 (98) 97 I & O 07/22/19 07/22/19 07/23/19 14:59 22:59 06:59 Intake Total 840 ml 550 ml 270 ml Balance 840 ml 550 ml 270 ml Labs: Laboratory Tests Test 07/23/19 06:30 07/23/19 14:15 Sodium Level 133 mmol/L (136-145) L 132 mmol/L (136-145) L Potassium Level 2.9 mmol/L (3.5-5.1) *L 4.3 mmol/L (3.5-5.1) # Chloride Level 91 mmol/L (98-107) L 90 mmol/L (98-107) L Carbon Dioxide Level 35 mmol/L (21-32) H 38 mmol/L (21-32) H Anion Gap 7 (6-14) 4 (6-14) L Blood Urea Nitrogen 30 mg/dL (7-20) H 33 mg/dL (7-20) H Creatinine 1.3 mg/dL (0.6-1.0) H 1.3 mg/dL (0.6-1.0) H Estimated GFR (Cockcroft-Gault) 38.7 38.7 Glucose Level 100 mg/dL (70-99) H 121 mg/dL (70-99) H Calcium Level 9.0 mg/dL (8.5-10.1) 9.2 mg/dL (8.5-10.1) Current Medications: Meds: Current Medications Medications (Trade) Dose Ordered Sig/Roger Route PRN Reason Start Time Stop Time Status Last Admin Dose Admin Dronabinol (Marinol) 5 mg BIDACLD PO 07/23/19 11:30 07/23/19 17:35 Potassium Chloride (Klor-Con) 40 meq Q2H PO 07/23/19 08:00 07/23/19 10:01 DC 07/23/19 11:00 I have reviewed the current psychotropics carefully including drug interactions. Risk benefit ratio favors no change other than as noted in my dictated progress note. Diagnosis: Problems: (1) Anxiety disorder (2) Impulse control disorder (3) Major depressive disorder, recurrent episode (4) Weakness SHAVON MARQUEZ MD Jul 23, 2019 21:52
[2019-07-24] MEDS: LEVOTHYROXINE 100 MCG TABLET PO SCH (05:34)
[2019-07-24] MEDS: DOCOSANOL 10% TP SCH ×5 (05:34→20:43)
[2019-07-24 06:28] VITALS: BP 137/74
[2019-07-24 07:02] LABS: CREATININE 1.3 mg/dL (0.6-1.0); GFR 38.7; POTASSIUM 3.4 mmol/L (3.5-5.1)
[2019-07-24] MEDS: METOPROLOL TART IMMED RELEASE 25 MG TABLET PO SCH (08:04)
[2019-07-24] MEDS: LACTOBACILLUS RHAMNOSUS GG 1 CAPSULE. PO SCH ×2 (08:04→20:39)
[2019-07-24] MEDS: POTASSIUM CHLORIDE 20 MEQ TABLET.ER. PO SCH (08:04)
[2019-07-24] MEDS: MAGNESIUM CHLORIDE ER 64 MG TABLET.ER PO SCH (08:04)
[2019-07-24] MEDS: FERROUS SULFATE 325 MG TABLET. PO SCH ×2 (08:04→13:30)
[2019-07-24] MEDS: MULTIVITAMIN with MINERAL TABLET. PO SCH (08:04)
[2019-07-24] MEDS: ASPIRIN 81 MG TAB.CHEW PO SCH (08:04)
[2019-07-24] MEDS: NYSTATIN TOPICAL POWDER 15GM BOTTLE. TP SCH ×2 (08:05→20:41)
[2019-07-24] MEDS: PANTOPRAZOLE 40 MG TABLET. PO SCH (08:05)
[2019-07-24] MEDS: NYSTATIN 100,000 UNIT/GM TOPICAL CREAM 15GM TUBE. TP SCH ×2 (08:05→20:39)
[2019-07-24] MEDS: TRIAMCINOLONE ACETONIDE 0.1% TOPICAL CREAM 15GM TUBE. TP SCH ×2 (08:05→20:40)
--- NOTE | 2019-07-24 10:02 | PN ---
DATE: 07/22/2019 PSYCHIATRIC PROGRESS NOTE This is a late entry. The patient was seen individually, discussed with nursing staff, reviewed the chart. Overall, the patient has been more interactive and participating in physical therapy. REVIEW OF SYSTEMS: Impaired ambulation. No CV, , pulmonary, eye system symptoms on review. MENTAL STATUS EXAM: Oriented to herself, situation. Speech is coherent, abstraction fair, computation impaired, language function intact. Mood and affect is improved. She talked at length about growing up in [place], very verbal, animated. No suicidal ideation. LABORATORY DATA: Reviewed. IMPRESSION: Unchanged from initial note. PLAN: No change from a psychiatric standpoint. SHAVON MARQUEZ MD DR: VONDA/kimberly JOB#: [id number] / [id number]
[2019-07-24] MEDS: DRONABINOL 2.5 MG CAPSULE PO SCH ×2 (11:48→16:52)
--- NOTE | 2019-07-24 13:12 | NUR ---
Swing Bed Nursing Note Patient Handbook for [facility] given to patient. Nursing Problem: PATIENT TO CONTINUE ON SWING BED UNIT FOR A FEW MORE DAYS PER DOCTORS ORDERS. Cognitive/Behavioral: PATIENT IS ALERT AND ORIENTED WITH SOME FORGETFULNESS. SPEECH IS CLEAR, ABLE TO MAKE NEEDS KNOWN. PLEASANT AND COOPERATIVE WITH STAFF. Pain: PATIENT DENIES PAIN THUS FAR THIS SHIFT. Respiratory Status: LUNG SOUNDS CLEAR THROUGH OUT. NO COUGH NOTED. NO S/SX OF RESPIRATORY CONCERNS. Skin: PATIENT SKIN IS CLEAR AND DRY. ASSISTED WITH LOTION APPLICATION THIS AM. Bowel/Bladder Continence: CONTINENT OF BOWEL AND BLADDER. ADL Functional Status: PATIENT WALKS INDEPENDENTLY WITH WHEELED WALKER. LIMITED ASSISTANCE WITH BATHING, DRESSING, AND GROOMING NEEDED. PATIENT HAD A BATH THIS AM WITH MODERATE HELP FROM STAFF. RESTING QUIETLY IN RECLINER CHAIR AT THIS TIME.
[2019-07-24 13:49] VITALS: BP 122/75
[2019-07-24 18:16] VITALS: BP 113/69
[2019-07-24] MEDS: GABAPENTIN 300 MG CAPSULE. PO SCH (20:39)
--- NOTE | 2019-07-25 00:02 | PN ---
DATE: 07/23/2019 PSYCHIATRIC PROGRESS NOTE This late entry 07/23/2019 covers the elements not covered in my initial note. SUBJECTIVE: I met with the patient in the evening of 07/23/2019. The patient has been participating more with the physical therapy. She still remains a little isolative, but more interactive as I met with her. REVIEW OF SYSTEMS: Ambulation impaired. No CV, , pulmonary, eye system symptoms on review. MENTAL STATUS EXAM: Reasonably oriented. Speech is coherent, low in rate and rhythm, low in volume, but she gets more animated, talking about her childhood in [place]. Abstraction fair, computation impaired, language function intact. She minimizes being depressed. Denies suicidal ideation. LABORATORY DATA: Reviewed. IMPRESSION: Major depressive disorder, recurrent, in partial remission; anxiety disorder, unspecified; mild cognitive impairment. PLAN: Carefully reviewed her psychotropics. No change from initial note. SHAVON MARQUEZ MD DR: VONDA/kimberly JOB#: [id number] / [id number]
--- NOTE | 2019-07-25 03:11 | NUR ---
Swing Bed Daily Note: Nursing Problem: Patient admitted to swing bed for PT/OT therapy for gait strengthening, after admission to inpatient hospitalization for weakness, Potassium of 2.0 and Diarrhea Cognitive/Behavioral: Patient alert and oriented x 3. Pt is able to make needs known and uses call light appropriately. Pt is very pleasant with all cares and assessments. Pain: Pt denies c/o pain at this time. Respiratory Status: Lungs clear to auscultate. Denies cough but does c/o SOA with exertion. Pt is on room air. Skin: Skin is dry, thin and intact. Bruising noted to bilateral upper extremities due to recent fall. Pt with left ulcer to coccyx, wound care is consulted. Bowel/Bladder Continence: Patient is continent of bowel and bladder with no episodes of stress incontinence noted today. Pt denies diarrhea. LBM 07/23. ADL Functional Status: Pt able to sit on side of bed without assistance but does require x1 assist to stand from bed, chair or toilet. Pt uses walker and gait belt to ambulate throughout room and to bathroom with standby assist. Pt is able to feed self and takes medications whole. Pt able to get both legs up into bed herself but done one at a time. Pt is able to dress herself including socks and shoes.
[2019-07-25] MEDS: LEVOTHYROXINE 100 MCG TABLET PO SCH (05:54)
[2019-07-25] MEDS: DOCOSANOL 10% TP SCH ×5 (06:00→20:21)
[2019-07-25 06:01] VITALS: BP 134/83
--- NOTE | 2019-07-25 06:13 | PN ---
DATE: 07/22/2019 PSYCHIATRIC PROGRESS NOTE This late entry 07/22/2019 covers elements not covered in my initial note. SUBJECTIVE: I met with the patient evening of 07/22/2019, room 132 on the custodial unit at [facility]. Per nursing report, the patient is doing reasonably well, interactive and participating in physical therapy, ambulating better. REVIEW OF SYSTEMS: No CV, , pulmonary, eye system symptoms on review. MENTAL STATUS EXAMINATION: The patient is reasonably oriented. Speech is coherent, talked again at length about her life growing up in [place] and then [place] and the work she did. Remote memory is decent as is the recent as well. She minimizes mood symptoms. No psychotic symptoms, suicidal or homicidal ideation. LABORATORY DATA: Reviewed. IMPRESSION: Unchanged from initial note. PLAN: No change from initial note. MAN James MARQUEZ MD DR: VONDA/kimberly JOB#: [id number] / [id number]
[2019-07-25 07:18] LABS: CREATININE 1.2 mg/dL (0.6-1.0); GFR 42.4; POTASSIUM 3.5 mmol/L (3.5-5.1)
[2019-07-25] MEDS: MAGNESIUM CHLORIDE ER 64 MG TABLET.ER PO SCH (08:12)
[2019-07-25] MEDS: MULTIVITAMIN with MINERAL TABLET. PO SCH (08:12)
[2019-07-25] MEDS: POTASSIUM CHLORIDE 20 MEQ TABLET.ER. PO SCH (08:13)
[2019-07-25] MEDS: PANTOPRAZOLE 40 MG TABLET. PO SCH (08:13)
[2019-07-25] MEDS: FERROUS SULFATE 325 MG TABLET. PO SCH ×2 (08:13→13:53)
[2019-07-25] MEDS: ASPIRIN 81 MG TAB.CHEW PO SCH (08:13)
[2019-07-25] MEDS: METOPROLOL TART IMMED RELEASE 25 MG TABLET PO SCH (08:13)
[2019-07-25] MEDS: LACTOBACILLUS RHAMNOSUS GG 1 CAPSULE. PO SCH ×2 (08:13→20:18)
[2019-07-25] MEDS: NYSTATIN 100,000 UNIT/GM TOPICAL CREAM 15GM TUBE. TP SCH ×2 (08:13→20:20)
[2019-07-25] MEDS: TRIAMCINOLONE ACETONIDE 0.1% TOPICAL CREAM 15GM TUBE. TP SCH ×2 (08:13→20:20)
[2019-07-25] MEDS: NYSTATIN TOPICAL POWDER 15GM BOTTLE. TP SCH ×2 (08:14→20:20)
[2019-07-25] MEDS: DRONABINOL 2.5 MG CAPSULE PO SCH ×2 (11:44→17:19)
[2019-07-25 18:08] VITALS: BP 122/82
--- NOTE | 2019-07-25 19:50 | PDOC ---
Exam Note: Anthony Note: Please also refer to the separate dictated note~for this date of service dictated separately.~Patient seen individually. Discussed the patient with Nursing staff reviewed the chart.~Reviewed interim history and current functioning. Reviewed vital signs,~Labs/ Radiology~and current medications noted below. Continue current treatment with the changes noted in the dictated addendum note Assessment: Vital Signs/I&O: Vital Signs Date Time Temp Pulse Resp B/P (MAP) Pulse Ox O2 Delivery O2 Flow Rate FiO2 07/25/19 18:08 98.2 84 20 122/82 (95) 92 Room Air I & O 07/24/19 07/24/19 07/25/19 15:00 23:00 07:00 Intake Total 1320 ml 480 ml 180 ml Balance 1320 ml 480 ml 180 ml Labs: Laboratory Tests Test 07/25/19 06:55 Sodium Level 128 mmol/L (136-145) L Potassium Level 3.5 mmol/L (3.5-5.1) Chloride Level 91 mmol/L (98-107) L Carbon Dioxide Level 32 mmol/L (21-32) Anion Gap 5 (6-14) L Blood Urea Nitrogen 21 mg/dL (7-20) H Creatinine 1.2 mg/dL (0.6-1.0) H Estimated GFR (Cockcroft-Gault) 42.4 Glucose Level 101 mg/dL (70-99) H Calcium Level 9.0 mg/dL (8.5-10.1) Current Medications: I have reviewed the current psychotropics carefully including drug interactions. Risk benefit ratio favors no change other than as noted in my dictated progress note. Diagnosis: Problems: (1) Anxiety disorder (2) Impulse control disorder (3) Major depressive disorder, recurrent episode SHAVON MARQUEZ MD Jul 25, 2019 19:49
[2019-07-25] MEDS: GABAPENTIN 300 MG CAPSULE. PO SCH (20:18)
[2019-07-26 05:44] VITALS: BP 120/73
[2019-07-26] MEDS: DOCOSANOL 10% TP SCH ×5 (06:00→21:03)
[2019-07-26] MEDS: LEVOTHYROXINE 100 MCG TABLET PO SCH (06:03)
--- NOTE | 2019-07-26 06:04 | NUR ---
Swing Bed Daily Note: Nursing Problem: Patient admitted to swing bed for PT/OT therapy for gait strengthening, after admission to inpatient hospitalization for weakness, Potassium of 2.0 and Diarrhea Cognitive/Behavioral: Patient alert and oriented x 3. Pt is able to make needs known and uses call light appropriately. Pt is typically pleasant with all cares and assessments, however, she can be. Pain: Pt denies c/o pain at this time. Respiratory Status: Lungs clear to auscultate. Denies cough but does c/o SOA with exertion. Pt is on room air. Skin: Skin is dry, thin and intact. Bruising noted to bilateral upper extremities due to recent fall. Pt with left ulcer to coccyx, wound care is consulted. Patient refused all skin creams this shift. Bowel/Bladder Continence: Patient is continent of bowel and bladder with no episodes of stress incontinence noted today. Pt denies diarrhea. LBM 07/26. ADL Functional Status: Pt able to sit on side of bed without assistance but does require x1 assist to stand from bed, chair or toilet. Pt uses walker and gait belt to ambulate throughout room and to bathroom with standby assist. Pt is able to feed self and takes medications whole. Pt able to get both legs up into bed herself but done one at a time. Pt is able to dress herself including socks and shoes.
[2019-07-26] MEDS: NYSTATIN TOPICAL POWDER 15GM BOTTLE. TP SCH ×2 (09:00→20:05)
[2019-07-26] MEDS: TRIAMCINOLONE ACETONIDE 0.1% TOPICAL CREAM 15GM TUBE. TP SCH ×2 (09:00→20:05)
[2019-07-26] MEDS: NYSTATIN 100,000 UNIT/GM TOPICAL CREAM 15GM TUBE. TP SCH ×2 (09:00→20:05)
[2019-07-26] MEDS: PANTOPRAZOLE 40 MG TABLET. PO SCH (09:04)
[2019-07-26] MEDS: ASPIRIN 81 MG TAB.CHEW PO SCH (09:04)
[2019-07-26] MEDS: POTASSIUM CHLORIDE 20 MEQ TABLET.ER. PO SCH (09:05)
[2019-07-26] MEDS: MULTIVITAMIN with MINERAL TABLET. PO SCH (09:05)
[2019-07-26] MEDS: METOPROLOL TART IMMED RELEASE 25 MG TABLET PO SCH (09:05)
[2019-07-26] MEDS: LACTOBACILLUS RHAMNOSUS GG 1 CAPSULE. PO SCH ×2 (09:05→20:05)
[2019-07-26] MEDS: FERROUS SULFATE 325 MG TABLET. PO SCH ×2 (09:05→13:32)
[2019-07-26] MEDS: MAGNESIUM CHLORIDE ER 64 MG TABLET.ER PO SCH (09:06)
[2019-07-26 10:41] LABS: HEMATOCRIT 37.4 % (36.0-47.0); HEMOGLOBIN 12.5 g/dL (12.0-15.5); RED BLOOD COUNT 4.4 x10^6/uL (3.50-5.40); RED CELL DISTRIBUTION WIDTH 16.4 % (11.5-14.5); WHITE BLOOD COUNT 6.1 x10^3/uL (4.0-11.0)
[2019-07-26 10:46] LABS: CALCIUM 9.1 mg/dL (8.5-10.1); CREATININE 1.2 mg/dL (0.6-1.0); GFR 42.4; POTASSIUM 3.4 mmol/L (3.5-5.1)
[2019-07-26] MEDS: FUROSEMIDE 20 MG TABLET PO SCH (11:15)
[2019-07-26] MEDS: DRONABINOL 2.5 MG CAPSULE PO SCH ×2 (11:53→16:49)
[2019-07-26] MEDS ORDERED: ELECTROLYTE (NON-ICU) PROTOCOL MC PRN (17:30)
[2019-07-26] MEDS ORDERED: POTASSIUM CHLORIDE 20 MEQ TABLET.ER. PO ONE (17:30)
[2019-07-26 18:41] VITALS: BP 119/70
[2019-07-26] MEDS: GABAPENTIN 300 MG CAPSULE. PO SCH (20:05)
--- NOTE | 2019-07-26 20:23 | PDOC ---
Exam Note: Anthony Note: Please also refer to the separate dictated note~for this date of service dictated separately.~Patient seen individually. Discussed the patient with Nursing staff reviewed the chart.~Reviewed interim history and current functioning. Reviewed vital signs,~Labs/ Radiology~and current medications noted below. Continue current treatment with the changes noted in the dictated addendum note Assessment: Vital Signs/I&O: Vital Signs Date Time Temp Pulse Resp B/P (MAP) Pulse Ox O2 Delivery O2 Flow Rate FiO2 07/26/19 19:05 Room Air 07/26/19 18:41 98.1 86 20 119/70 (86) 95 I & O 07/25/19 07/25/19 07/26/19 15:00 23:00 07:00 Intake Total 680 ml 360 ml 220 ml Balance 680 ml 360 ml 220 ml Labs: Laboratory Tests Test 07/26/19 10:28 White Blood Count 6.1 x10^3/uL (4.0-11.0) Red Blood Count 4.40 x10^6/uL (3.50-5.40) Hemoglobin 12.5 g/dL (12.0-15.5) Hematocrit 37.4 % (36.0-47.0) Mean Corpuscular Volume 85 fL (79-100) Mean Corpuscular Hemoglobin 28 pg (25-35) Mean Corpuscular Hemoglobin Concent 33 g/dL (31-37) Red Cell Distribution Width 16.4 % (11.5-14.5) H Platelet Count 258 x10^3/uL (140-400) Sodium Level 130 mmol/L (136-145) L Potassium Level 3.4 mmol/L (3.5-5.1) L Chloride Level 90 mmol/L (98-107) L Carbon Dioxide Level 32 mmol/L (21-32) Anion Gap 8 (6-14) Blood Urea Nitrogen 20 mg/dL (7-20) Creatinine 1.2 mg/dL (0.6-1.0) H Estimated GFR (Cockcroft-Gault) 42.4 Glucose Level 159 mg/dL (70-99) H Calcium Level 9.1 mg/dL (8.5-10.1) Current Medications: Meds: Current Medications Medications (Trade) Dose Ordered Sig/Roger Route PRN Reason Start Time Stop Time Status Last Admin Dose Admin Furosemide (Lasix) 20 mg DAILY PO 07/26/19 10:30 07/26/19 11:22 Potassium Chloride (Klor-Con) 40 meq 1X ONCE PO 07/26/19 17:30 07/26/19 17:35 DC 07/26/19 17:37 I have reviewed the current psychotropics carefully including drug interactions. Risk benefit ratio favors no change other than as noted in my dictated progress note. Diagnosis: Problems: (1) Muscle weakness (generalized) (2) Weakness (3) CHF (congestive heart failure) (4) Major depressive disorder, recurrent episode (5) Impulse control disorder (6) Anxiety disorder SHAVON MARQUEZ MD Jul 26, 2019 20:23
--- NOTE | 2019-07-26 23:23 | PN ---
DATE: SUBJECTIVE: The patient is still on skilled unit. The patient is still being adjusted on her potassium as it is low. She has gained a little bit of weight as we held her Lasix because of low potassium. We will restart that. Continue to monitor potassium. She is on an electrolyte replacement therapy right now to get her potassium back up into range. PHYSICAL EXAMINATION: GENERAL: Otherwise, the patient is alert and oriented. LUNGS: Diminished throughout, but clear. CARDIVASCULAR: Irregularly irregular. ABDOMEN: Protuberant, soft. EXTREMITIES: No clubbing or cyanosis. +1 and +2 pitting edema in her legs. IMPRESSION: Hypokalemia and generalized weakness and deconditioning. MARTINEZ MONTOYA MD DR: LILI/kimberly JOB#: [id number] / [id number]
--- NOTE | 2019-07-27 01:00 | NUR ---
Swing Bed Daily Note: Nursing Problem: Patient admitted to swing bed for PT/OT therapy for gait strengthening, after admission to inpatient hospitalization for weakness. Cognitive/Behavioral: Patient alert and oriented x 3. Pt is able to make needs known and uses call light appropriately. Pt is very pleasant with all cares and assessments. Pain: Pt denies c/o pain at this time. Respiratory Status: Lungs clear to auscultate. Denies cough but does c/o SOA with exertion. Pt is on room air. Skin: Skin is dry, thin and intact. Bruising noted to bilateral upper extremities due to recent fall. Pt with left ulcer to coccyx, wound care is consulted. Bowel/Bladder Continence: Patient is continent of bowel and bladder with no episodes of stress incontinence noted today. LBM 07/26. ADL Functional Status: Pt able to sit on side of bed without assistance but does require x1 assist to stand from bed, chair or toilet. Pt uses walker to ambulate throughout room and to bathroom with standby assist. Pt is able to feed self and takes medications whole. Pt able to get both legs up into bed herself but done one at a time. Pt is able to dress herself including socks and shoes.
[2019-07-27] MEDS: DOCOSANOL 10% TP SCH ×2 (05:14→08:24)
[2019-07-27] MEDS: LEVOTHYROXINE 100 MCG TABLET PO SCH (05:14)
[2019-07-27 05:17] VITALS: BP 138/83
[2019-07-27] MEDS: FUROSEMIDE 20 MG TABLET PO SCH (08:19)
[2019-07-27] MEDS: LACTOBACILLUS RHAMNOSUS GG 1 CAPSULE. PO SCH (08:20)
[2019-07-27] MEDS: ASPIRIN 81 MG TAB.CHEW PO SCH (08:20)
[2019-07-27] MEDS: PANTOPRAZOLE 40 MG TABLET. PO SCH (08:20)
[2019-07-27] MEDS: POTASSIUM CHLORIDE 20 MEQ TABLET.ER. PO SCH (08:20)
[2019-07-27] MEDS: MAGNESIUM CHLORIDE ER 64 MG TABLET.ER PO SCH (08:20)
[2019-07-27] MEDS: MULTIVITAMIN with MINERAL TABLET. PO SCH (08:20)
[2019-07-27 08:22] VITALS: BP 138/83
[2019-07-27] MEDS: METOPROLOL TART IMMED RELEASE 25 MG TABLET PO SCH (08:22)
[2019-07-27] MEDS: NYSTATIN 100,000 UNIT/GM TOPICAL CREAM 15GM TUBE. TP SCH (08:23)
[2019-07-27] MEDS: TRIAMCINOLONE ACETONIDE 0.1% TOPICAL CREAM 15GM TUBE. TP SCH (08:23)
[2019-07-27] MEDS: NYSTATIN TOPICAL POWDER 15GM BOTTLE. TP SCH (08:24)
[2019-07-27] MEDS: FERROUS SULFATE 325 MG TABLET. PO SCH (08:24)
[2019-07-27] MEDS ORDERED: DRON2.5C2 PO (09:05)
[2019-07-27] MEDS ORDERED: FURO20TA3 PO (09:05)
--- NOTE | 2019-07-27 10:06 | NUR ---
NSG NOTE; DISCHARGE WRITTEN AND VERBAL DISCHARGE INSTRUCTIONS GIVEN TO PT AND SON WITH VERBAL UNDERSTANDING WRITTEN RX X1 GIVEN TO PT AND ONE RX CALLED TO PHARMACY DISCHARGED FOR RETURN TO THE DAY [facility] AT [address] W/C ACCOMP BY SON
--- NOTE | 2019-07-27 10:16 | DS ---
DATE OF DISCHARGE: HOSPITAL COURSE: An 89-year-old female was on the Skilled Unit, was discharged home per family's request. She will be going out to the [facility]. The patient was seen by Dr. Alvarez as well for her depression and the patient also received extensive PT, OT. Initially, she did have a history of diverticulitis and generalized weakness. The patient made really good progress with her PT, OT. Her potassium became somewhat of a problem; however, it was monitored carefully and brought back up into range. She will have that checked on a regular basis as well as continue with her potassium. Her potassium was as low as 2.9; however, was brought up to 3.5. The patient made excellent progress during the rest of her hospitalization. There were no complications. Blood pressure 138/83, respiratory rate 18, pulse 86. The patient's BUN and creatinine 20 and 1.2. Sodium and potassium 130 and 3.4. The patient otherwise placed on an appetite stimulant. She made good progress during the rest of her hospitalization and will be followed up accordingly as an outpatient at the [facility] facility with weekly labs and alike. IMPRESSION: Diverticulitis, generalized weakness, abdominal pain, severe hypokalemia, generalized deconditioning. PLAN: Continue to monitor the patient accordingly, make further evaluation on her at that facility. MARTINEZ MONTOYA MD DR: LILI/kimberly JOB#: [id number] / [id number]
--- NOTE | 2019-07-28 16:31 | PN ---
DATE: 07/26/2019 This late entry on 07/26 covers elements not covered in my initial note. SUBJECTIVE: I met with the patient the evening of 07/26. Overall, the patient has been participating more with physical therapy with the plan for her to return to [facility] in the next day or so. We processed this and she states she feels she can adapt to [facility] reasonably well, and is able to accept that she cannot return home. REVIEW OF SYSTEMS: Some impairment of ambulation. No CV, , pulmonary, eye, ENT system symptoms on review. MENTAL STATUS EXAMINATION: Reasonably oriented. Speech coherent, abstraction fair, computation impaired, language function intact. Mood and affect showing improvement, little more animated. LABORATORY DATA: Reviewed. IMPRESSION: Unchanged from initial note. PLAN: No change from initial note. MAN James MARQUEZ MD DR: VONDA/kimberly JOB#: [id number] / [id number]
== END 2019-07-27 10:01 | disposition home health service (06) | DRG 556 ==
LOC: 1 SOUTH 12:40 → LND 07-21 13:36
PROVIDERS: ADMIT Family Medicine; ATTEND Family Medicine
DX: M62.81 Muscle weakness (generalized) (principal); K57.92 Diverticulitis of intestine, part unspecified, without perforation or abscess without bleeding; F33.9 Major depressive disorder, recurrent, unspecified; N39.0 Urinary tract infection, site not specified; F63.9 Impulse disorder, unspecified; F41.9 Anxiety disorder, unspecified; I11.0 Hypertensive heart disease with heart failure; E66.01 Morbid (severe) obesity due to excess calories; E87.6 Hypokalemia; F03.90 Unspecified dementia, unspecified severity, without behavioral disturbance, psychotic disturbance, mood disturbance, and anxiety; F43.23 Adjustment disorder with mixed anxiety and depressed mood; I50.9 Heart failure, unspecified; W18.39XA Other fall on same level, initial encounter; R62.7 Adult failure to thrive; Z79.899 Other long term (current) drug therapy; Z68.29 Body mass index [BMI] 29.0-29.9, adult; Z88.0 Allergy status to penicillin; Z88.2 Allergy status to sulfonamides; Y93.89 Activity, other specified; Y92.89 Other specified places as the place of occurrence of the external cause; Y99.8 Other external cause status
CPT/HCPCS: 36415; 80048; 85025; 85027; Q0167; 97110; 97116; 97530; 97535

== ENCOUNTER 2019-08-02 10:40 | Emergency (ER) | payer MEDICARE, OTHER ==
[~2019-08-02] VITALS: Ht 167.6 cm; Wt 79.4 kg
[~2019-08-02 10:40] MED LIST changes: +ACET325T9 PO; +ATOR20TA PO; +CLOB15CR TP; +DRON2.5C2 PO; +FURO20TA3 PO; +LACT1CAP19 PO; +LEVO500T8 PO; +LOPE2TAB27 PO; +METR500T PO
[2019-08-02 11:05] VITALS: BP 144/85
[2019-08-02] MEDS ORDERED: IV RINGERS SOLUTION,LACTATED 1,000 ML IV SCH (11:10)
--- NOTE | 2019-08-02 11:14 | PHYS DOC ---
Past History Past Medical History: A-Fib, Anemia, GERD, Hypertension, Renal Failure, Other Past Surgical History: Appendectomy, Cholecystectomy, Hysterectomy, Knee Replacement, Tonsillectomy Smoking: Non-smoker Alcohol Use: None Drug Use: None Adult General Chief Complaint Chief Complaint: WEAKNESS/GENERALIZED HPI HPI Patient is a 89-year-old female presents with family from the assisted care facility where she resides, [facility], due to increased malaise, not eating, and failure to thrive. She was admitted the end of June 2019, and discharged on 26 October due to hypokalemia complications. Patient denies any fever, denies any appetite, denies thirst. Denies any chest pain or palpitations. Increased sleepiness according to family.[] Review of Systems Review of Systems Constitutional: Denies fever or chills [] Eyes: Denies change in visual acuity, redness, or eye pain [] HENT: Denies nasal congestion or sore throat [] Respiratory: Denies cough or shortness of breath [] Cardiovascular: No chest pain or palpitations[] GI: Denies abdominal pain, nausea, vomiting, bloody stools or diarrhea [] : Denies dysuria or hematuria [] Musculoskeletal: Denies back pain or joint pain [] Integument: Denies rash or skin lesions [] Neurologic: Denies headache, focal weakness or sensory changes [] Endocrine: Denies polyuria or polydipsia [] All other systems were reviewed and found to be within normal limits, except as documented in this note. Allergies Allergies Allergies Coded Allergies Type Severity Reaction Last Updated Verified Penicillins Allergy Severe 07/10/19 Yes Sulfa (Sulfonamide Antibiotics) Allergy Intermediate Rash 04/20/19 Yes Physical Exam Physical Exam Constitutional: Well developed, well nourished, no acute distress, non-toxic appearance. [] HENT: Normocephalic, atraumatic, bilateral external ears normal, oropharynx moist, no oral exudates, nose normal. [] Eyes: PERRLA, EOMI, conjunctiva normal, no discharge. [] Neck: Normal range of motion, no tenderness, supple, no stridor. [] Cardiovascular:Heart rate regular rhythm, no murmur [] Lungs & Thorax: Bilateral breath sounds clear to auscultation [] Abdomen: Bowel sounds normal, soft, no tenderness, no masses, no pulsatile masses. [] Skin: Warm, dry, no erythema, no rash. [] Back: No tenderness, no CVA tenderness. [] Extremities: No tenderness, no cyanosis, no clubbing, ROM intact, no edema. [] Neurologic: Alert and oriented X 2, normal motor function, normal sensory function, no focal deficits noted. [] Psychologic: Affect normal, judgement normal, mood normal. [] Current Patient Data Vital Signs Vital Signs Date Time Temp Pulse Resp B/P (MAP) Pulse Ox O2 Delivery O2 Flow Rate FiO2 08/02/19 11:05 97.5 88 18 97 Room Air EKG EKG EKG shows an irregular rhythm at 81 bpm, normal axis, QTC 447 ms, no ST elevatio n area[] Radiology/Procedures Radiology/Procedures PROCEDURE: PORTABLE CHEST 1V AP chest portable 08/02/2019. Reason for exam: Weakness. Comparison is made with a study of 07/10/2019. Some opacity at the left base has mostly cleared. No new infiltrate or effusion is seen. Heart size is normal. IMPRESSION: There is been some clearing at the left base. No new findings are seen.[] Course & Med Decision Making Course & Med Decision Making Pertinent Labs and Imaging studies reviewed. (See chart for details) ED course: Patient arrived, was placed in bed, and tolerated exam well. After the return of laboratory and imaging studies, these were discussed with patient and family voiced understanding. Patient has no appetite. Further discussion reveals patient is on a CBD-containing product to help with appetite. We will s top this. Consultation was made with her primary care physician. Will start Megace. There is no acute condition warranting admission at this time. Medical decision making: There is no evidence of an acute coronary syndrome, UTI, stroke syndrome, significant electrolyte abnormality, pneumonia nor other reason for admission.[] Dragon Disclaimer Dragon Disclaimer This electronic medical record was generated, in whole or in part, using a voice recognition dictation system. Departure Departure: Impression: Primary Impression: Decreased appetite Additional Impression: Weakness Disposition: 01 HOME, SELF-CARE Condition: IMPROVED Referrals: MARTINEZ MONTOYA MD (PCP) Follow-up in 2 days Patient Instructions: Weakness Additional Instructions: Follow-up with your regular doctor in 2 days. Drink plenty of fluids. Return to the ER if worsening, nausea or vomiting, or any other concerns. Scripts Megestrol Acetate (MEGESTROL ACETATE) 800 Mg/20 Ml Oral.susp 800 MG PO DAILY for ANOREXIA for 10 Days, LIQUID Prov: MARIANA RODRIGUEZ DO 08/02/19 Problem Qualifiers MARIANA RODRIGUEZ DO Aug 02, 2019 11:14
--- NOTE | 2019-08-02 11:31 | EKG ---
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
--- NOTE | 2019-08-02 11:46 | RAD ---
AP chest portable 08/02/2019. Reason for exam: Weakness. Comparison is made with a study of 07/10/2019. Some opacity at the left base has mostly cleared. No new infiltrate or effusion is seen. Heart size is normal. IMPRESSION: There is been some clearing at the left base. No new findings are seen. Electronically signed by: Taurus Francisco Jr., MD (08/02/2019 11:43 AM) [facility]
[2019-08-02 11:54] LABS: BASO % 1 % (0-3); EOS % 1 % (0-3); HEMATOCRIT 43.1 % (36.0-47.0); HEMOGLOBIN 14.1 g/dL (12.0-15.5); LYMPH # 0.8 x10^3/uL (1.0-4.8); LYMPH % 13 % (24-48); MEAN CORPUSCULAR HEMOGLOBIN 28 pg (25-35); MEAN CORPUSCULAR HGB CONC 33 g/dL (31-37); MEAN CORPUSCULAR VOLUME 87 fL (79-100); MONO # 0.2 x10^3/uL (0.0-1.1); MONO % 4 % (0-9); NEUT # 4.8 x10^3uL (1.8-7.7); NEUT % 82 % (31-73); PLATELET COUNT 257 x10^3/uL (140-400); RED BLOOD COUNT 4.99 x10^6/uL (3.50-5.40); RED CELL DISTRIBUTION WIDTH 17.8 % (11.5-14.5); WHITE BLOOD COUNT 5.8 x10^3/uL (4.0-11.0)
[2019-08-02 12:20] LABS: ALBUMIN/GLOBULIN RATIO 0.7 (1.0-1.7); CALCIUM 9.7 mg/dL (8.5-10.1); CREATININE 1.3 mg/dL (0.6-1.0); GFR 38.7; MAGNESIUM 1.7 mg/dL (1.8-2.4); TOTAL BILIRUBIN 0.9 mg/dL (0.2-1.0); TOTAL PROTEIN 7.3 g/dL (6.4-8.2)
[2019-08-02 12:22] LABS: POTASSIUM 3.5 mmol/L (3.5-5.1)
[2019-08-02 12:25] LABS: BACTERIA,URINE FEW /HPF (0-FEW); BILIRUBIN,URINE NEG (NEG); CLARITY,URINE HAZY; COLOR,URINE YELLOW; GLUCOSE,URINE NEG (NEG); HYALINE CASTS, URINE OCC /HPF; NITRITE,URINE NEG (NEG); RBC,URINE 0 /HPF (0-2); SQUAMOUS EPITHELIAL CELL,UR OCC /LPF; UROBILINOGEN,URINE 0.2 mg/dL (0.2 mg/dL)
[2019-08-02] MEDS ORDERED: [UNRECOGNIZED DRUG - CODE] PO (13:55)
== END 2019-08-02 14:03 | disposition home or self-care (01) ==
LOC: ER 10:40
DX: R53.1 Weakness (principal); R63.0 Anorexia; R62.7 Adult failure to thrive; I48.91 Unspecified atrial fibrillation; K21.9 Gastro-esophageal reflux disease without esophagitis; I12.9 Hypertensive chronic kidney disease with stage 1 through stage 4 chronic kidney disease, or unspecified chronic kidney disease; N18.9 Chronic kidney disease, unspecified; Z68.28 Body mass index [BMI] 28.0-28.9, adult; Z86.2 Personal history of diseases of the blood and blood-forming organs and certain disorders involving the immune mechanism; Z88.0 Allergy status to penicillin; Z88.2 Allergy status to sulfonamides
CPT/HCPCS: 36415; 71045; 80053; 81001; 83690; 83735; 83880; 84443; 84484; 85025; 85610; 85730; 87086; 93005; 99285; J7120